=== PATIENT | male | born 1940 | race Caucasian/White ===

== ENCOUNTER 2021-08-28 11:04 | Outpatient (REF) | payer MEDICARE, OTHER, SELFPAY ==
--- NOTE | ~2021-08-28 | XR_ITS ---
EXAMINATION: XR CLAVICLE, RIGHT CLINICAL INFORMATION: Fracture distal clavicle. COMPARISON: None TECHNIQUE: Two views of the right clavicle. FINDINGS: There is posttraumatic deformity distal right clavicle. The proximal fragment is elevated by approximately one bone diameter. The right lung apex is clear. XR/XR clavicle RT IMPRESSION: Displaced fracture distal right clavicle, possibly subacute or older.
== END 2021-08-28 11:05 | disposition home or self-care (01) ==
LOC: HO.HOSX 11:04
PROVIDERS: Visit Provider Physician Assistant
DX: S42.001A Fracture of unspecified part of right clavicle, initial encounter for closed fracture (principal); X58.XXXA Exposure to other specified factors, initial encounter; Y93.9 Activity, unspecified; Y92.9 Unspecified place or not applicable; Y99.9 Unspecified external cause status
CPT/HCPCS: 73000; 99202

== ENCOUNTER 2021-09-25 09:46 | Outpatient (REF) | payer MEDICARE, SELFPAY ==
--- NOTE | ~2021-09-25 | XR_ITS ---
EXAMINATION: XR CLAVICLE, RIGHT CLINICAL INFORMATION: Fracture COMPARISON: Previous x-ray August 2021 TECHNIQUE: 2 of the right clavicle. FINDINGS: There is posttraumatic deformity of the right distal clavicle. Alignment appears unchanged.. There is surrounding bony callus formation. There is increasing adjacent soft tissue calcification. There may be a right posterior third rib fracture. XR/XR clavicle RT IMPRESSION: Healing right distal clavicle fracture. Increasing adjacent soft tissue calcification.
== END 2021-09-25 09:47 | disposition home or self-care (01) ==
LOC: HO.HOSX 09:46
PROVIDERS: Visit Provider Physician Assistant
DX: S42.001D Fracture of unspecified part of right clavicle, subsequent encounter for fracture with routine healing (principal)
CPT/HCPCS: 73000; 99212

== ENCOUNTER 2021-11-06 07:50 | Outpatient (REF) | payer MEDICARE, SELFPAY ==
--- NOTE | ~2021-11-06 | XR_ITS ---
EXAMINATION: XR CLAVICLE, RIGHT CLINICAL INFORMATION: Right distal clavicular fracture, follow-up. COMPARISON: Right clavicle 09/25/2021. TECHNIQUE: 2 views of the right clavicle. FINDINGS: There is post-traumatic deformity following fracture of the distal clavicle. Surrounding bony callus and hypertrophic changes are noted. Prominent soft tissue swelling is seen along the distal clavicle where it projects out superiorly. The glenohumeral joint space is normal. XR/XR clavicle RT IMPRESSION: No change in the post-traumatic deformity right distal clavicle following a fracture. Prominent soft tissue superiorly is likely from a displaced clavicular fracture projecting superiorly.
== END 2021-11-06 07:51 | disposition home or self-care (01) ==
LOC: HO.HOSX 07:50
PROVIDERS: Visit Provider Physician Assistant
DX: S42.001D Fracture of unspecified part of right clavicle, subsequent encounter for fracture with routine healing (principal); X58.XXXD Exposure to other specified factors, subsequent encounter
CPT/HCPCS: 73000; 99212

== ENCOUNTER 2023-08-11 10:23 | Emergency (ER) | payer MEDICARE, OTHER, SELFPAY ==
[2023-08-11] VITALS (7 sets, daily range): BP systolic 115–141; BP diastolic 57–76; PULSE 65–96; RESP 14–18; TEMP 36.7; O2SAT 92–97; BMI 19.6
--- NOTE | ~2023-08-11 | CT_ITS ---
EXAMINATION: CT CHEST WITH CONTRAST CLINICAL INFORMATION: Left upper lobe lesion COMPARISON: None available. TECHNIQUE: Multidetector volumetric CT imaging of the chest was obtained after the administration of 65 mL of Omnipaque 350 intravenous contrast without immediate adverse reactions. Axial MIP volume rendering provided. Sagittal and coronal reformatted images were obtained. This CT examination was performed using dose optimization techniques as appropriate, variously including the following: *Automated exposure control *Adjustment of mA and/or kV according to patient size (this includes techniques or standardized protocols for targeted exams where dose is matched to indication/reason for exam; i.e. extremities or head) *Use of iterative reconstruction technique DLP: 199 mGy-cm FINDINGS: MEASURER MACHINE: Hyperinflated lungs. LUNGS: There is diffuse centrilobular emphysematous changes of both lungs with ill-defined bilateral upper lobe patchy opacities likely scarring. There is a dense left upper lobe opacity measuring 2.2 cm likely abnormality seen on earlier chest x-ray. There is mild atelectatic changes or scarring in the lingula and left lower lobe. There is no groundglass density mass seen. There is spiculated 6 mm nodule right lower lobe axial image 32/4. 2 mm subpleural nodule is seen right lower lobe axial image 43/4 no additional nodules seen. There is mild thickening of bilateral superior major fissure. There is mild peribronchial thickening in both lower lobes without bronchiectasis. Mediastinum: The heart size is normal. There is significant coronary artery calcification. No pericardial effusion seen. There are small shotty mediastinal lymph nodes. Central trachea and the bronchi widely patent. PLEURA: There is bilateral apical pleural thickening AXILLA: No lymphadenopathy. UPPER ABDOMEN: Visualized liver, spleen, pancreas and bilateral adrenal glands are unremarkable. There is small calcification in the right hepatic lobe. An exophytic cyst is seen in the upper pole left kidney. OSSEOUS STRUCTURES: Mild compression deformity T4 and T3 vertebra is noted. No aggressive lytic or sclerotic process seen. CT/CT chest w IV con IMPRESSION: 1. Diffuse centrilobular emphysema with ill-defined bilateral upper lobe patchy opacities likely chronic scarring. 2. Left upper lobe opacity seen on chest x-ray corresponds to a 2.[address] 3. Suspicious 6 mm nodule right lower lobe. Recommend CT PET exam 4. No abnormal mediastinal or axillary lymphadenopathy seen. 5. Mild compression deformity T4 and T3 vertebra, likely is old. Correlate with clinical exam 6. Small exophytic cyst upper pole left kidney. 7. Significant coronary artery calcifications. Fleischner guidelines were followed.
--- NOTE | ~2023-08-11 | XR_ITS ---
EXAMINATION: XR CHEST CLINICAL INFORMATION: Cough COMPARISON: None available. TECHNIQUE: 2 views of the chest were obtained. FINDINGS: The lungs are hyperinflated but clear of acute pneumonic process. There is patchy opacity left upper lobe question scarring versus underlying lesion. There is minimal right apical pleural thickening. Heart size and pulmonary vascularity is normal. . No gross bony abnormality seen. XR/XR chest 2V IMPRESSION: 1. Hyperinflated lungs without acute process. 2. Patchy opacity left upper lobe question scarring versus underlying lesion. Recommend CT chest. 3. Minimal right apical pleural thickening.
--- NOTE | 2023-08-11 10:38 | ECG_ITS ---
Test Reason : sob Blood Pressure : / mmHG Vent. Rate : 085 BPM Atrial Rate : 085 BPM P-R Int : 164 ms QRS Dur : 090 ms QT Int : 382 ms P-R-T Axes : 093 -59 056 degrees QTc Int : 454 ms Artifact in tracing Normal sinus rhythm Left axis deviation Low voltage QRS Cannot rule out Anterior infarct , age undetermined Abnormal ECG No previous ECGs available Referred By: Generic ED Physician Electronically Signed By:FLYNN FAM
[2023-08-11 10:53] LABS: MANUAL DIFF FLAG NO
[2023-08-11 10:55] LABS: Basophils Percent Auto 0.2 % (0-2); Eosinophils Absolute Auto 0.1 X10*3/uL (0.0-0.4); Eosinophils Percent Auto 1.8 % (0-4); Hematocrit 40.1 % (42.0-52.0); Imm Gran Abs Auto 0.02 X10*3/uL (0.00-0.03); Imm Gran Pct Auto 0.4 % (0.0-0.4); Lymphocytes Absolute Auto 0.4 X10*3/uL (1.2-4.9); Lymphocytes Percent Auto 8.2 % (20-40); Mean Corpuscular HGB Conc 32.4 g/dl (31.0-36.0); Mean Corpuscular Hemoglobin 30.8 pg (27.0-33.0); Mean Platelet Volume 9.4 fL (9.4-12.4); Monocytes Absolute Auto 0.4 X10*3/uL (0.1-1.2); Monocytes Percent Auto 7.8 % (2-11); Neutrophils Absolute Auto 4.2 x10*3/uL (2.0-8.3); Neutrophils Percent Auto 81.6 % (45-73); Platelet Count 143 X10*3/uL (160-400); Red Blood Count 4.22 X10*6/uL (4.60-5.80); Red Cell Distribution Width 15.5 % (11.0-16.0); White Blood Count 5.1 X10*3/uL (4.8-10.8)
[2023-08-11 11:11] LABS: Alanine Aminotransferase 18 U/L (0-40); Alkaline Phosphatase 68 U/L (39-117); Anion Gap 15 (12-20); Aspartate Amino Transferase 23 U/L (5-37); Bilirubin Direct 0.2 mg/dL (0.0-0.5); Bilirubin Total 0.5 mg/dL (0.0-1.0); Blood Urea Nitrogen 23 mg/dL (9-16); Calcium 9.8 mg/dL (8.4-10.2); Carbon Dioxide 29 mmol/L (22-29); Chloride 103 mmol/L (96-108); Creatinine Clr Calc Pharmacy 54.1; Estimated Glomerular Filt Rate > 60; Glucose Random 146 mg/dL (60-115); Lipase 25 U/L (8-78); Potassium 4.2 mmol/L (3.3-5.1); Sodium 143 mmol/L (135-145); Total Protein 7.2 g/dL (6.5-8.0)
[2023-08-11 11:15] LABS: IDNOW Serial# BCCEAD1C; Influenza A Negative (Negative); Influenza B2 Negative (Negative)
[2023-08-11 11:16] LABS: COVID-19 Test Negative (Negative); IDNOW Serial# 08D9AD1C
[2023-08-11 11:17] LABS: Troponin-I High Sensitivity 15.7 ng/L (<3.5-35.0)
--- NOTE | 2023-08-11 14:35 | ED.ARRPALP ---
HPI - Arrhythmia/Palpitations General Chief Complaint: Arrhythmia/Palpitations Stated Complaint: SOB Multiple Issues Time Seen by Provider: 08/11/23 14:13 Source: patient Mode of arrival: ambulatory Limitations: no limitations History of Present Illness HPI narrative: Patient comes to the emergency room complaining of palpitations at night. Patient states it has been going on for about 3 months, when patient stands up to the bathroom at night, when he returns, patient has palpitations which self resolved. Patient came today because he has noticed that the palpitations are lasting longer. Patient has history of atrial fibrillation, takes Plavix and aspirin. Patient denies any chest pain. Patient has also noticed that for the last few weeks, patient has more cough and increase sputum production cough. Patient denies fever or chills Related Data Home Medications Medication Instructions Recorded Confirmed acetaminophen 650 mg 650 mg PO Q8H 08/28/21 tablet,extended release (Tylenol Arthritis Pain) atorvastatin 80 mg tablet (Lipitor) 80 mg PO DAILY 08/28/21 clopidogrel 75 mg tablet (Plavix) 75 mg PO DAILY 08/28/21 enasidenib 50 mg tablet 50 mg PO DAILY 08/28/21 famotidine 20 mg tablet 20 mg PO DAILY 08/28/21 fluticasone furoate 100 1 inh inhalation DAILY 08/28/21 mcg-vilanterol 25 mcg/dose inhalation powder (Breo Ellipta) melatonin 3 mg capsule 3 mg PO BEDTIME PRN 08/28/21 sertraline 100 mg tablet 100 mg PO DAILY 08/28/21 Previous Rx's Medication Instructions Recorded azithromycin 250 mg tablet 250 mg PO DAILY 4 days #4 tabs 08/11/23 cefuroxime axetil 500 mg tablet 500 mg PO BID #13 tabs 08/11/23 prednisone 50 mg tablet 50 mg PO DAILY #4 tabs 08/11/23 Allergies Allergy/AdvReac Type Severity Reaction Status Date / Time levofloxacin [From LEVAQUIN] Allergy Unknown HIVES Verified 08/11/23 10:31 lidocaine [LIDOCAINE] AdvReac Unknown IV Verified 08/11/23 10:31 SENSITIVE nitroglycerin AdvReac BP Drop Verified 08/11/23 10:31 tamsulosin AdvReac BP Drop Verified 08/11/23 10:31 Review of Systems Review of Systems: Constitutional : No Weight loss, No Fever, No Chills, No Night Sweats, No Fatigue, No Malaise ENT/Mouth : No Hearing loss, No Ear Pain, No Nasal Congestion, No Sinus Pain, No Hoarseness, No sore throat, No Rhinorrhea, No Swallowing Difficulty Eyes: No Eye Pain, No Swelling, No Redness, No Foreign Body, No Discharge, No Vision Changes Cardiovascular : No Chest Pain, complaining of palpitations at night accompanied by shortness of breath which self resolve. Respiratory : Several weeks of productive cough, chronic wheezing No Smoke Exposure, shortness of breath accompanied by palpitations Gastrointestinal : No Nausea, No Vomiting, No Diarrhea, No Constipation, No abdominal Pain, No Hematochezia, No Melena Genitourinary : no irregular bleeding, No Dysuria, No Urinary Frequency, No Hematuria, No Urinary Incontinence, No Urgency, No Flank Pain, No Urinary Flow Changes, No Hesitancy Musculoskeletal : No joint pain, No Myalgias, No Joint Swelling Skin : No Skin Lesions, No rash Neuro : No Weakness, No Numbness, No Paresthesias, No Loss of Consciousness, No Dizziness, No Headache Psych : No Anxiety/Panic, No Depression, No SI/HI/AH/VH, No Social Issues, Heme/Lymph: No Bruising, No Bleeding,No Lymphadenopathy Endocrine : No Polyuria, No Polydipsia, No Temperature Intolerance [facility] Past Medical History Medical History (Updated 08/11/23 @ 17:55 by Aurora Bhakta MD) Atrial fibrillation COPD (chronic obstructive pulmonary disease) FHx: cholecystectomy Surgical History History of appendectomy S/P trigger finger release H/O angioplasty Social History Social History Alcohol intake: never Smoked in Last 30 Days: No Use of substances other than those prescribed or required for medical reasons: No Substance Use Type: Prescription Drugs Advance Directives: Yes Advance Directives Information Provided: Yes Advance Directives on File: No Current occupational status: disabled Current occupation: Rt handed Physical Exam Vital Signs: Vital Signs: Last Vital Signs Temp 98.0 F 08/11/23 10:31 Pulse 75 08/11/23 15:09 Resp 18 08/11/23 15:09 BP 131/66 08/11/23 14:30 Pulse Ox 97 08/11/23 14:30 O2 Del Method Room Air 08/11/23 14:30 BMI result Body Mass Index 19.6 Const: Other: Appearance: Alert. Oriented X3. No acute distress. Eyes: Pupils equal, round and reactive to light. ENT: Pharynx normal. Neck: Normal inspection. Neck supple. No lymph nodes noted. No crepitus CVS: Regular heart rate, regular rhythm, heart rate between 70-80 , Pulses normal. Normal S1 and S2 Respiratory: No respiratory distress. Mild bilateral wheezing, fairly good air movement No rales Abdomen: Soft and nontender. No rigidity. No distention. Skin: Skin warm and dry. Normal skin color. Normal skin turgor. Extremities: No lower extremity edema. No Lacerations. No Rash Neuro: Oriented X 3. No motor deficit. No sensory deficit. Moving all extremities. No slurred speech. CN 2 through 12 grossly intact Psych: calm, cooperative, normal affect Medications Administered Discontinued Medications Generic Name Dose Route Start Last Admin Trade Name Freq PRN Reason Stop Dose Admin Albuterol Sulfate 2.5 mg 08/11/23 15:06 08/11/23 15:09 Albuterol Sulfate (0.083%) 2.5 Mg/3 Ml Vial.Neb INHALE 08/11/23 15:07 2.5 mg ONCE ONE Administration Albuterol/Ipratropium 3 ml 08/11/23 14:44 08/11/23 14:55 Albuterol/Iprat 2.5/0.5mg 3 Ml Ampul.Neb INHALE 08/11/23 14:45 3 ml ONCE ONE Administration Iohexol 65 ml 08/11/23 14:54 08/11/23 14:54 Iohexol 350 Mg/Ml 75 Ml Infus..Btl IV 08/11/23 14:55 65 ml ONCE ONE Administration Medical Decision Making Medical Decision Making MDM Narrative: -my interpretation of chest x-ray: Opacity in the left upper lobe. Possible pneumonia. -radiology report, opacity versus scarring versus lesion. CT scan recommended -I discussed the CT scan with the patient, patient states that he recently he was told something about pulmonary nodules but was not sure what he was told. We will go ahead and order a CT scan with contrast of the chest -my interpretation of the labs: White blood cell count within normal limits, hemoglobin 13, hematocrit 40, no previous labs for comparison, treated slightly decreased as well. No significant electrolyte disturbance, normal LFTs, normal troponin, BNP normal -at this time, patient is asymptomatic, laying in bed comfortably, no respiratory distress. On physical exam there was a bit of wheezing, patient requesting an updraft -CT scan of the chest my interpretation: Multiple nodules bilaterally, emphysema scarring -I discussed the CT scan findings with the patient and his son. Patient's son states that primary care physician is already following up on the pulmonary nodules, CT scan was done approximately 1 week ago, they have a follow-up appointment coming up for the results. Discussed with the patient that eventually a PET scan would be recommended. Fortunately, patient's PCP is already on top of things. Per patient's son, just in case he would like to have the phone number for pulmonology. -I discussed with the patient his and given his symptoms and medical history, we should go ahead and treat him with antibiotics. Both agree -patient walked around the emergency room, patient states he feels well, no oxygen saturation, no arrhythmias Differential Diagnosis Differential Diagnoses: The differential diagnosis associated with the presentation includes (Chronic lung disease, asthma, pulmonary nodules/malignancy, CHF) Admission/Observation Consideration of admission/observation: Escalation of care including admission/observation considered (Given patient's past medical history and presentation, admission was considered on arrival) Lab Data MDM Lab Attestation statement: I reviewed the patient's lab results. 08/11/23 10:46 08/11/23 10:46 Labs: Lab Results 08/11/23 08/11/23 Range/Units 10:46 10:47 WBC 5.1 (4.8-10.8) X10*3/uL RBC 4.22 L (4.60-5.80) X10*6/uL Hgb 13.0 L (14.0-18.0) g/dl Hct 40.1 L (42.0-52.0) % MCV 95.0 (80.0-98.0) fL MCH 30.8 (27.0-33.0) pg MCHC 32.4 (31.0-36.0) g/dl RDW 15.5 (11.0-16.0) % Plt Count 143 L (160-400) X10*3/uL MPV 9.4 (9.4-12.4) fL Immature Gran % (Auto) 0.4 (0.0-0.4) % Neut % (Auto) 81.6 H (45-73) % Lymph % (Auto) 8.2 L (20-40) % [place] % (Auto) 7.8 (2-11) % Eos % (Auto) 1.8 (0-4) % Baso % (Auto) 0.2 (0-2) % Lymph # (Auto) 0.4 L (1.2-4.9) X10*3/uL [place] # (Auto) 0.4 (0.1-1.2) X10*3/uL Eos # (Auto) 0.1 (0.0-0.4) X10*3/uL Baso # (Auto) 0.0 (0.0-0.2) X10*3/uL Abs Immat Gran (auto) 0.02 (0.00-0.03) X10*3/uL Absolute Neuts (auto) 4.2 (2.0-8.3) x10*3/uL Absolute Nucleated RBC 0.000 (0.0-0.012) X10*3/uL Nucleated RBC % (auto) 0.0 (0.0-0.2) /100WBC Sodium 143 (135-145) mmol/L Potassium 4.2 (3.3-5.1) mmol/L Chloride 103 (96-108) mmol/L Carbon Dioxide 29 (22-29) mmol/L Anion Gap 15 (12-20) BUN 23 H (9-16) mg/dL Creatinine 0.87 (0.5-1.4) mg/dL Estim Creat Clear Calc 54.1 Estimated GFR > 60 Random Glucose 146 H (60-115) mg/dL Calcium 9.8 (8.4-10.2) mg/dL Total Bilirubin 0.5 (0.0-1.0) mg/dL Direct Bilirubin 0.2 (0.0-0.5) mg/dL AST 23 (5-37) U/L ALT 18 (0-40) U/L Alkaline Phosphatase 68 (39-117) U/L Troponin I High Sens 15.7 (<3.5-35.0) ng/L B-Natriuretic Peptide 67 (<100) pg/mL Total Protein 7.2 (6.5-8.0) g/dL Albumin 4.0 (3.5-5.0) g/dL Lipase 25 (8-78) U/L COVID-19 (RASHI) Negative (Negative) COVID-19 Clin Com See Note Influenza Type A (JUANA) Negative (Negative) Influenza Type B (JUANA) Negative (Negative) Influenza A & B Note See Note Independent Interpretation I performed an independent interpretation of an: CT Scan Radiology Impression Discussion of test interpretation with radiology: I have reviewed the radiologist's reading. Radiologist Impression: FINDINGS: ETHANOL OPERATIONS MANAGER: Hyperinflated lungs. LUNGS: There is diffuse centrilobular emphysematous changes of both lungs with ill-defined bilateral upper lobe patchy opacities likely scarring. There is a dense left upper lobe opacity measuring 2.2 cm likely abnormality seen on earlier chest x-ray. There is mild atelectatic changes or scarring in the lingula and left lower lobe. There is no groundglass density mass seen. There is spiculated 6 mm nodule right lower lobe axial image 32/4. 2 mm subpleural nodule is seen right lower lobe axial image 43/4 no additional nodules seen. There is mild thickening of bilateral superior major fissure. There is mild peribronchial thickening in both lower lobes without bronchiectasis. Mediastinum: The heart size is normal. There is significant coronary artery calcification. No pericardial effusion seen. There are small shotty mediastinal lymph nodes. Central trachea and the bronchi widely patent. PLEURA: There is bilateral apical pleural thickening AXILLA: No lymphadenopathy. UPPER ABDOMEN: Visualized liver, spleen, pancreas and bilateral adrenal glands are unremarkable. There is small calcification in the right hepatic lobe. An exophytic cyst is seen in the upper pole left kidney. OSSEOUS STRUCTURES: Mild compression deformity T4 and T3 vertebra is noted. No aggressive lytic or sclerotic process seen. CT/CT chest w IV con IMPRESSION: 1. Diffuse centrilobular emphysema with ill-defined bilateral upper lobe patchy opacities likely chronic scarring. 2. Left upper lobe opacity seen on chest x-ray corresponds to a 2.[address] 3. Suspicious 6 mm nodule right lower lobe. Recommend CT PET exam 4. No abnormal mediastinal or axillary lymphadenopathy seen. 5. Mild compression deformity T4 and T3 vertebra, likely is old. Correlate with clinical exam 6. Small exophytic cyst upper pole left kidney. 7. Significant coronary artery calcifications. Fleischner guidelines were followed. Independent Historian Clinical information obtained from an independent historian. History obtained from or confirmed by: Other (Patient's son) Critical Care Time Critical Care Time Critical Care Time: Yes Total Critical Care Time: 60 Attestation: I have personally provided critical care time. Time includes review of lab data, radiology results, discussion with consultants, and monitoring for potential decompensation. Intervention performed as documented. Discharge Plan Discharge Clinical Impression: Chronic lung disease Patient Disposition: Home, Self-Care Instructions: Chronic Bronchitis (DC) Additional Instructions: Please follow-up with your primary care physician tomorrow. If you have any worsening or new symptoms, please return to the emergency room or call 911 Prescriptions: New cefuroxime axetil 500 mg tablet 500 mg PO BID Qty: 13 0RF azithromycin 250 mg tablet 250 mg PO DAILY 4 Days Qty: 4 0RF Rx Instructions: start on day 2 of therapy prednisone 50 mg tablet 50 mg PO DAILY Qty: 4 0RF No Action clopidogrel [Plavix] 75 mg tablet 75 mg PO DAILY enasidenib 50 mg tablet 50 mg PO DAILY Breo Ellipta 100-25 mcg/dose blister with device 1 inh inhalation DAILY atorvastatin [Lipitor] 80 mg tablet 80 mg PO DAILY sertraline 100 mg tablet 100 mg PO DAILY famotidine 20 mg tablet 20 mg PO DAILY melatonin 3 mg capsule 3 mg PO BEDTIME PRN acetaminophen [Tylenol Arthritis Pain] 650 mg tablet extended release 650 mg PO Q8H
[2023-08-11 14:52] LABS: B Type Natriuretic Peptide 67 pg/mL (<100)
[2023-08-11] MEDS: iohexoL 350 MG/ML 75 ML INFUS..BTL 65 ML IV (14:54)
[2023-08-11] MEDS: Albuterol/Iprat 2.5/0.5MG 3 ML AMPUL.NEB INHALE (14:55)
[2023-08-11] MEDS: Albuterol Sulfate (0.083%) 2.5 MG/3 ML VIAL.NEB INHALE (15:09)
--- NOTE | 2023-08-11 16:09 | PC.NURSE ---
Assumed care of pt from previous RN, pt resting comfortably on stretcher. Denies any complaints. Awaiting CT Chest results at this time, call hernandez within reach.
[2023-08-11] MEDS: cefuroxime axetiL 500 MG TABLET PO (18:23)
[2023-08-11] MEDS: Azithromycin 500 MG TABLET PO (18:23)
[2023-08-11] MEDS: predniSONE 20 MG TABLET 60 MG PO (18:23)
== END 2023-08-11 18:41 | disposition home or self-care (01) ==
PROVIDERS: Emergency Provider Emergency Medicine; PCP Internal Medicine
DX: J98.9 Respiratory disorder, unspecified (principal); I49.9 Cardiac arrhythmia, unspecified; R06.02 Shortness of breath; R05.9 Cough, unspecified; Z11.52 Encounter for screening for COVID-19; Z20.822 Contact with and (suspected) exposure to COVID-19; Z79.899 Other long term (current) drug therapy
CPT/HCPCS: 71046; 71260; 80048; 80076; 83690; 83880; 84484; 85025; 87502; 87635; 93005; 94640; 99285; Q9967

== ENCOUNTER → 2023-08-11 10:38 | Outpatient (BNV) | payer MEDICARE, OTHER, SELFPAY | PROVIDERS: Emergency Provider Emergency Medicine; PCP Internal Medicine; Visit Provider Internal Medicine | DX: I44.4 Left anterior fascicular block (principal); R06.02 Shortness of breath | CPT/HCPCS: 93010 ==

== ENCOUNTER 2023-11-25 08:10 | Emergency (ER) | payer MEDICARE, OTHER, SELFPAY ==
[2023-11-25] VITALS (10 sets, daily range): BP systolic 116–183; BP diastolic 50–86; PULSE 75–125; RESP 15–18; TEMP 37.1–39.3; O2SAT 92–97; BMI 19.1
--- NOTE | ~2023-11-25 | CT_ITS ---
EXAMINATION: CT CERVICAL SPINE WITHOUT CONTRAST CLINICAL INFORMATION: Neck pain COMPARISON: None available. TECHNIQUE: Thin section axial images with sagittal coronal reformats. This CT examination was performed using dose optimization techniques as appropriate, variously including the following: *Automated exposure control *Adjustment of mA and/or kV according to patient size (this includes techniques or standardized protocols for targeted exams where dose is matched to indication/reason for exam; i.e. extremities or head) *Use of iterative reconstruction technique DLP: 504 mGy-cm FINDINGS: There is advanced degenerative change observed C5-C6 and C6-C7 but no mass effect on the spinal canal. No fracture or destructive process. Prevertebral soft tissues normal. Minimal scarring is seen in the lung apices. CT/CT cervical spine wo IV con IMPRESSION: Degenerative change noted. No fracture. Degenerative changes observed but no acute findings. No evidence for fracture or alignment abnormality in the C-spine. Fleischner guidelines were followed.
--- NOTE | ~2023-11-25 | XR_ITS ---
EXAMINATION: XR CHEST CLINICAL INFORMATION: Difficulty breathing COMPARISON: CT chest 08/11/2023 TECHNIQUE: Frontal view of the chest was obtained. FINDINGS: Diffuse fibrotic change but no focal consolidation. Heart and pulmonary vessels normal. No congestive change. Previously described opacity left upper lobe less conspicuous. XR/XR chest 1V IMPRESSION: No active disease.
--- NOTE | ~2023-11-25 | CT_ITS ---
EXAMINATION: CT HEAD WITHOUT CONTRAST CLINICAL INFORMATION: Headaches COMPARISON: None available. TECHNIQUE: Contiguous axial imaging was performed from the skull base to vertex without intravenous administration of contrast. This CT examination was performed using dose optimization techniques as appropriate, variously including the following: *Automated exposure control *Adjustment of mA and/or kV according to patient size (this includes techniques or standardized protocols for targeted exams where dose is matched to indication/reason for exam; i.e. extremities or head) *Use of iterative reconstruction technique DLP: 880 mGy-cm FINDINGS: There is prominence to the sulci and ventricles with at least moderate deep white matter gliosis compatible with involutional change. No evidence of intra or extra axial fluid collection, hemorrhage, mass, or mass effect. Calvarium is intact. CT/CT head/brain wo IV con IMPRESSION: No acute intracranial pathology.
--- NOTE | 2023-11-25 11:45 | PC.NURSE ---
PT STATES THAT THE PASS FEW DAYS HE WAS DIZZINESS/LIGHTNESS/WEAKNESS/SHAKING(NETO HANDS INTERMITTENTLY) WITH DIFF AMBULATING. MD AWARE.
--- NOTE | 2023-11-25 11:48 | ECG_ITS ---
Test Reason : DIZZINESS Blood Pressure : / mmHG Vent. Rate : 069 BPM Atrial Rate : 069 BPM P-R Int : 186 ms QRS Dur : 098 ms QT Int : 434 ms P-R-T Axes : 075 -60 047 degrees QTc Int : 465 ms Sinus rhythm with Premature atrial complexes Left axis deviation Incomplete right bundle branch block Cannot rule out Anterior infarct (cited on or before 11-AUG-2023) Abnormal ECG When compared with ECG of 11-AUG-2023 10:41, Premature atrial complexes are now Present Referred By: Dory Arroyo Electronically Signed By:Mg Navarro
--- NOTE | 2023-11-25 11:48 | ED.GENADULT ---
HPI - General Adult General Chief complaint: Headache Stated complaint: Dizzy Headache Weak Time Seen by Provider: 11/25/23 11:48 Source: patient and RN notes reviewed Mode of arrival: ambulatory Limitations: no limitations History of Present Illness HPI narrative: This is a 83-year-old male, with a history of atrial fibrillation on clopidogrel, who presents emergency department for evaluation of ongoing weakness, shakiness, chronic headaches and neck pain x 5-6 months. Patient states that over the last several months he has had increased difficulty getting around. He also endorses weakness and headaches. He was seen here in July with similar symptoms. Patient denies any recent falls. Denies any fevers, chills, chest pain, shortness of breath, abdominal pain, nausea, vomiting or diarrhea. No urinary symptoms. No changes in bowel or bladder habits. No other complaints or concerns at this time. MD complaint: Global weakness, headaches Quality: aching Pain Consistency: constant Relieving factors: none Exacerbating factors: none Associated symptoms: denies other symptoms Treatments prior to arrival: none Related Data Home Medications ?Medication ?Instructions ?Recorded ?Confirmed acetaminophen 650 mg 650 mg PO Q8H 08/28/21 tablet,extended release (Tylenol Arthritis Pain) atorvastatin 80 mg tablet (Lipitor) 80 mg PO DAILY 08/28/21 clopidogrel 75 mg tablet (Plavix) 75 mg PO DAILY 08/28/21 famotidine 20 mg tablet 20 mg PO DAILY 08/28/21 melatonin 3 mg capsule 3 mg PO BEDTIME PRN 08/28/21 sertraline 100 mg tablet 100 mg PO DAILY 08/28/21 albuterol sulfate 90 mcg/actuation inhalation 11/26/23 aerosol inhaler (Ventolin HFA) enalapril maleate 5 mg tablet PO 11/26/23 fluticasone furoate 200 1 ea inhalation DAILY 11/26/23 11/26/23 mcg-vilanterol 25 mcg/dose inhalation powder (Breo Ellipta) Previous Rx's ?Medication ?Instructions ?Recorded acetaminophen 500 mg tablet 500 mg PO Q6H PRN fever or pain 11/26/23 (Tylenol Extra Strength) #30 tabs oseltamivir 75 mg capsule (Tamiflu) 75 mg PO BID 5 days #9 caps 11/26/23 Allergies Allergy/AdvReac Type Severity Reaction Status Date / Time levofloxacin [From LEVAQUIN] Allergy Unknown HIVES Verified 11/25/23 08:58 lidocaine [LIDOCAINE] AdvReac Unknown IV Verified 11/25/23 08:58 SENSITIVE nitroglycerin AdvReac BP Drop Verified 11/25/23 08:58 tamsulosin AdvReac BP Drop Verified 11/25/23 08:58 Review of Systems Review of Systems: Yes all other systems are reviewed and are negative Constitutional: Constitutional: Reports as per HPI [facility] Past Medical History Medical History Atrial fibrillation COPD (chronic obstructive pulmonary disease) FHx: cholecystectomy Surgical History History of appendectomy S/P trigger finger release H/O angioplasty Social History Social History Alcohol intake: never Smoked in Last 30 Days: No Use of substances other than those prescribed or required for medical reasons: No Substance Use Type: Prescription Drugs Advance Directives: No Advance Directives Information Provided: No Current occupational status: disabled Current occupation: [employer] handed Physical Exam ED Vital Signs: Vital Signs - 24 hr 11/25/23 16:57 11/25/23 18:09 11/25/23 18:12 Temperature 99.5 F Pulse Rate 92 75 82 Respiratory Rate 18 Blood Pressure 122/50 L 116/53 L 124/64 Pulse Oximetry 92 Oxygen Delivery Method Room Air 11/25/23 18:14 11/25/23 20:00 11/26/23 01:04 Temperature 98.7 F 98.6 F Pulse Rate 92 88 100 Respiratory Rate 15 17 Blood Pressure 131/67 121/56 L 167/70 H Pulse Oximetry 97 93 Oxygen Delivery Method Room Air Room Air 11/26/23 04:40 11/26/23 06:36 11/26/23 09:13 Temperature 102.2 F H 100.8 F H 99.7 F Pulse Rate 68 Respiratory Rate 18 Blood Pressure 139/67 Pulse Oximetry 94 Oxygen Delivery Method 11/26/23 09:41 Temperature Pulse Rate 68 Respiratory Rate Blood Pressure 139/67 Pulse Oximetry 94 Oxygen Delivery Method BMI result Body Mass Index 19.1 Const General: cooperative, comfortable and no acute distress Orientation/consciousness: patient oriented x3 Limitations: no limitations HENMT Head: Yes normal to inspection, Yes normocephalic and Yes atraumatic Ears: hearing grossly normal bilaterally General nose exam: Normal external nose present Face and sinus: Yes normal facial exam Mouth: Normal oral and palatal mucosa present, oropharynx normal and moist mucous membranes Throat: Yes posterior oropharynx normal Eyes General: appearance normal, both eyes and all related structures Eyelids: Yes eyelids normal Conjunctivae: conjunctivae normal Sclerae: sclerae normal Pupils: Equal, round and reactive pupils present EOM: EOMs intact bilaterally Neck Neck: Yes normal visual inspection, Yes full ROM and Yes no lymphadenopathy Lymphatic: no lymphadenopathy noted Chest Chest palpation & inspection: normal inspection of the chest Resp Effort & Inspection: normal respiratory effort and able to speak in complete sentences Auscultation: clear to auscultation bilaterally, no crackles, no rales, no rhonchi and no wheezes Cardio Rate: regular rate Rhythm: regular rhythm Heart sounds: S1 normal heart sound present and S2 normal heart sound present GI Inspection: Yes normal to inspection Skin General skin exam: no rashes or lesions noted Trauma: no lacerations or abrasions Wounds: no wounds Neuro General: patient oriented x3 and moves all extremities Cranial nerves: Yes CN's II-XII intact bilaterally and Yes Equal, round and reactive pupils present Cognition (Neuro): normal cognition Gait exam (Neuro): Normal gait present Motor exam (neuro): 5/5 motor strength present throughout and Pronator motor function not present Extrem General: Yes normal to inspection Right upper extremity: normal to inspection Left upper extremity: normal to inspection Right lower extremity: normal to inspection Left lower extremity: normal to inspection Course Reevaluation(s) Reevaluation #1: Labs return, patient has leukocytosis at 17.2 Reevaluation #2: I was just notified that patient is febrile and tachycardic. Orthostatic vitals revealing that he is orthostatic increased tachycardia standing. Patient did test positive for influenza. Chest x-ray is unremarkable. Urine does not appear to be infected. Abdomen is soft nontender therefore intra abdominal process unlikely. Patient is likely tachycardic due to fever. I do not suspect sepsis, and I believe that this is viral in process. Discussed with my attending physician, Dr. Salguero. Will obtain lactic. Cultures were already performed upon arrival. Will administer IV fluids and Tylenol, and will closely monitor. Time: 15:39 Reevaluation #3: Patient no longer febrile, lactic acid negative. Will repeat orthostatics. Time: 17:33 Additional Reevaluation(s): Patient is not orthostatic, patient feeling well, afebrile, all vital signs within normal limits. Workup today unremarkable despite positive influenza test. Leukocytosis as mentioned before is likely reactive due to fever and tachycardia. Lactic acid negative. It is unclear how long he has been sick with the flu as he does not endorse any worsening cough, congestion, body aches or fevers. Patient will be seen by PT Case Management in the morning due to weakness which has been present for the last 5-6 months. Patient is willing to stay overnight for evaluation by PT and case management. Physician observation initiated. 11/26/2023 1130 - patient was seen by case management, and due to weakness and positive influenza test, they are requesting hospital admission as he meets admission criteria given fever and positive influenza testing. He has not altered, and is stable. He has been medicated with Tylenol overnight. 11/26/2023 1300 - reviewed patient's chart in regards to hospital admission. Given that he has not hypoxic, all medicine would be able to do is give Tamiflu. Vitals minus fevers are stable. Labs are okay. Imaging is negative. Physical therapy saw him this morning and did not recommend placement to short-term rehab and is okay to return to assisted living further note. Patient does not need to be admitted. He can go home back to his assisted living with home PT. His nephew will pick him up at 4:00 p.m. this afternoon. Patient stable. Medications Administered Generic Name Dose Route Start Last Admin Trade Name Freq PRN Reason Stop Dose Admin Acetaminophen 650 mg 11/26/23 04:40 11/26/23 04:56 Acetaminophen 325 Mg Tablet PO 650 mg RQ6H PRN Administration Fever >100.4 Discontinued Medications Generic Name Dose Route Start Last Admin Trade Name Freq PRN Reason Stop Dose Admin Acetaminophen 650 mg 11/25/23 15:27 11/25/23 15:38 Acetaminophen 325 Mg Tablet PO 11/25/23 15:28 650 mg ONCE ONE Administration Sodium Chloride 1,000 mls @ 999 mls/hr 11/25/23 15:32 11/25/23 20:00 Ns IV 11/25/23 16:32 Infused .Q1H1M ONE Infusion Medical Decision Making Medical Decision Making [facility] Narrative: This is a 83-year-old male, with a history of atrial fibrillation on clopidogrel, who presents emergency department with complaints of ongoing global weakness, weakness, headaches and neck pain for the last 5 to 6 months. Patient states that he was seen here in July for similar symptoms. On arrival, patient neurologically intact, strength 5/5 in upper and lower extremities bilaterally. No focal deficits. Differential diagnoses include electrolyte derangement, orthostatic hypertension, intracranial hemorrhage, intracranial mass, pneumonia Plan: Labs, EKG, CT head and neck, orthostatic vitals Differential Diagnosis Differential Diagnoses: The differential diagnosis associated with the presentation includes See above Admission/Observation Consideration of admission/observation: Escalation of care including admission/observation considered Escalation of care including admission/observation considered however given workup today not warranted at this time. Lab Data [facility] Lab Attestation statement: I reviewed the patient's lab results. 11/25/23 12:21 11/25/23 12:21 Labs: Lab Results 11/25/23 11/25/23 11/25/23 Range/Units 12:21 14:55 16:09 WBC 17.2 H (4.8-10.8) X10*3/uL RBC 4.12 L (4.60-5.80) X10*6/uL Hgb 13.0 L (14.0-18.0) g/dl Hct 39.1 L (42.0-52.0) % MCV 94.9 (80.0-98.0) fL MCH 31.6 (27.0-33.0) pg MCHC 33.2 (31.0-36.0) g/dl RDW 13.6 (11.0-16.0) % Plt Count 254 D (160-400) X10*3/uL MPV 9.3 L (9.4-12.4) fL Immature Gran % (Auto) 1.1 H (0.0-0.4) % Neut % (Auto) 91.0 H (45-73) % Lymph % (Auto) 2.6 L (20-40) % Mercer % (Auto) 5.2 (2-11) % Eos % (Auto) 0.0 (0-4) % Baso % (Auto) 0.1 (0-2) % Lymph # (Auto) 0.4 L (1.2-4.9) X10*3/uL Mercer # (Auto) 0.9 (0.1-1.2) X10*3/uL Eos # (Auto) 0.0 (0.0-0.4) X10*3/uL Baso # (Auto) 0.0 (0.0-0.2) X10*3/uL Abs Immat Gran (auto) 0.19 H (0.00-0.03) X10*3/uL Absolute Neuts (auto) 15.7 H (2.0-8.3) x10*3/uL Absolute Nucleated RBC 0.000 (0.0-0.012) X10*3/uL Nucleated RBC % (auto) 0.0 (0.0-0.2) /100WBC Smear Tech's Comments VERIFIED PT 15.0 H (11.1-13.3) SEC INR 1.2 H (0.9-1.1) APTT 29.9 (26.0-36.8) SEC Sodium 139 (135-145) mmol/L Potassium 3.5 (3.3-5.1) mmol/L Chloride 100 (96-108) mmol/L Carbon Dioxide 29 (22-29) mmol/L Anion Gap 14 (12-20) BUN 20 H (9-16) mg/dL Creatinine 0.80 (0.5-1.4) mg/dL Estim Creat Clear Calc 59.1 Estimated GFR > 60 Random Glucose 141 H (60-115) mg/dL Lactic Acid 1.8 (0.5-2.0) mmol/L Calcium 9.4 (8.4-10.2) mg/dL Magnesium 2.0 (1.6-2.6) mg/dL Total Bilirubin 0.9 (0.0-1.0) mg/dL Direct Bilirubin 0.4 (0.0-0.5) mg/dL AST 13 (5-37) U/L ALT 13 (0-40) U/L Alkaline Phosphatase 68 (39-117) U/L Troponin I High Sens 15.4 (<3.5-35.0) ng/L Total Protein 7.2 (6.5-8.0) g/dL Albumin 3.9 (3.5-5.0) g/dL Lipase 15 (8-78) U/L Urine Color Dark Yellow Urine Appearance Clear Urine pH 5.5 (5.0-9.0) Ur Specific [place] >= 1.030 H (1.005-1.025) Urine Protein 30 (1+) H (Neg-Trace) mg/dL Urine Glucose (UA) Negative (Negative) mg/dL Urine Ketones Negative (Negative) mg/dL Urine Blood Negative (Negative) Urine Nitrite Negative (Negative) Ur Leukocyte Esterase Trace H (Negative) Urine RBC 0-2 (0-2) /HPF Urine WBC 0-5 (0-5) /HPF Ur Squamous Epith Cells 0-2 (0-2) /HPF Urine Bacteria None Seen (None Seen) Hyaline Casts 0-2 (0-2) /LPF Influenza Type A (PCR) POSITIVE A (Negative) Influenza Type B (PCR) NEGATIVE (Negative) RSV RNA Qual (PCR) NEGATIVE (Negative) SARS-CoV-2 RNA (RT-PCR) NEGATIVE (Negative) Radiology Impression Discussion of test interpretation with radiology: I have reviewed the radiologist's reading. External Record Review External record reviewed: Inpatient record, Office record, Outpatient record, Prior outpatient labs, Prior outpatient radiology, Primary care record and Outside ED record Discharge Plan Discharge Clinical Impression: Flu, Weakness Patient Disposition: Still a Patient Instructions: Influenza (ED) Additional Instructions: Your seen in the emergency department due to weakness. Your workup was reassuring. You did test positive for flu. Please drink plenty of fluids get plenty of rest. Take Tamiflu, antiviral to lessen the duration and severity of influenza > we gave you your 1st dose today, please continue taking at home as prescribed. Take Tylenol as needed for fevers. If any new or worsening symptoms occur including but not limited to chest pain, shortness for breath, abdominal pain, nausea, vomiting or diarrhea, please return for re-evaluation. Prescriptions: New oseltamivir [Tamiflu] 75 mg capsule 75 mg PO BID 5 Days Qty: 9 0RF Rx Instructions: 1st dose received 11/26/2023 at 1500 acetaminophen [Tylenol Extra Strength] 500 mg tablet 500 mg PO Q6H PRN (Reason: fever or pain) Qty: 30 0RF No Action enalapril maleate 5 mg tablet PO albuterol sulfate [Ventolin HFA] 90 mcg/actuation HFA aerosol inhaler inhalation fluticasone furoate-vilanterol [Breo Ellipta] 200-25 mcg/dose blister with device 1 ea inhalation DAILY clopidogrel [Plavix] 75 mg tablet 75 mg PO DAILY atorvastatin [Lipitor] 80 mg tablet 80 mg PO DAILY sertraline 100 mg tablet 100 mg PO DAILY famotidine 20 mg tablet 20 mg PO DAILY melatonin 3 mg capsule 3 mg PO BEDTIME PRN acetaminophen [Tylenol Arthritis Pain] 650 mg tablet extended release 650 mg PO Q8H Referrals: [facility] [Outside] - 1 day (HOME PHYSICAL THERAPY) Print Language: [place]
[2023-11-25 12:33] LABS: Basophils Percent Auto 0.1 % (0-2); Hematocrit 39.1 % (42.0-52.0); Imm Gran Abs Auto 0.19 X10*3/uL (0.00-0.03); Imm Gran Pct Auto 1.1 % (0.0-0.4); Lymphocytes Absolute Auto 0.4 X10*3/uL (1.2-4.9); Lymphocytes Percent Auto 2.6 % (20-40); MANUAL DIFF FLAG SCAN; Mean Corpuscular HGB Conc 33.2 g/dl (31.0-36.0); Mean Corpuscular Hemoglobin 31.6 pg (27.0-33.0); Mean Corpuscular Volume 94.9 fL (80.0-98.0); Mean Platelet Volume 9.3 fL (9.4-12.4); Monocytes Absolute Auto 0.9 X10*3/uL (0.1-1.2); Monocytes Percent Auto 5.2 % (2-11); Neutrophils Absolute Auto 15.7 x10*3/uL (2.0-8.3); Platelet Count 254 X10*3/uL (160-400); Red Blood Count 4.12 X10*6/uL (4.60-5.80); Red Cell Distribution Width 13.6 % (11.0-16.0); SCAN SMEAR FLAG 1; White Blood Count 17.2 X10*3/uL (4.8-10.8)
[2023-11-25 12:40] LABS: INTERNATIONAL NORM RATIO 1.2 (0.9-1.1)
[2023-11-25 12:43] LABS: Partial Thromboplastin Time 29.9 SEC (26.0-36.8)
[2023-11-25 12:47] LABS: Alanine Aminotransferase 13 U/L (0-40); Albumin Level 3.9 g/dL (3.5-5.0); Alkaline Phosphatase 68 U/L (39-117); Anion Gap 14 (12-20); Aspartate Amino Transferase 13 U/L (5-37); Bilirubin Direct 0.4 mg/dL (0.0-0.5); Bilirubin Total 0.9 mg/dL (0.0-1.0); Blood Urea Nitrogen 20 mg/dL (9-16); Calcium 9.4 mg/dL (8.4-10.2); Carbon Dioxide 29 mmol/L (22-29); Chloride 100 mmol/L (96-108); Creatinine Clr Calc Pharmacy 59.1; Estimated Glomerular Filt Rate > 60; Glucose Random 141 mg/dL (60-115); Lipase 15 U/L (8-78); Potassium 3.5 mmol/L (3.3-5.1); Sodium 139 mmol/L (135-145); Total Protein 7.2 g/dL (6.5-8.0)
[2023-11-25 12:56] LABS: Troponin-I High Sensitivity 15.4 ng/L (<3.5-35.0)
[2023-11-25 13:04] LABS: Influenza A PCR POSITIVE (Negative); Influenza B PCR NEGATIVE (Negative); Resp Syncy Virus RNA Qual PCR NEGATIVE (Negative); SARS COV2 PCR INHOUSE NEGATIVE (Negative)
[2023-11-25 13:09] LABS: SLIDE REVIEW VERIFIED
[2023-11-25 15:04] LABS: Appearance Urine Clear; Color Urine Dark Yellow; Glucose Urine UA Negative (Negative); Leukocyte Esterase Urine Trace (Negative); Nitrite Urine Negative (Negative); PH 5.5 (5.0-9.0); Specific Gravity - Urine >= 1.030 (1.005-1.025); UMIC TRIGGER UACC YES; Urine Blood Negative (Negative); Urine Ketones Negative (Negative); Urine Protein 30 (1+) mg/dL (Neg-Trace)
[2023-11-25 15:15] LABS: Bacteria Urine None Seen (None Seen); Hyaline Casts Urine 0-2 /LPF (0-2); RBC Urine 0-2 /HPF (0-2); Squamous Epithelial Cell Urine 0-2 /HPF (0-2); WBC Urine 0-5 /HPF (0-5)
[2023-11-25] MEDS: 0.9 % Sodium Chloride 1,000 ML 999 ML IV (15:33)
[2023-11-25] MEDS: Acetaminophen 325 MG TABLET 650 MG PO (15:38)
--- NOTE | 2023-11-25 16:15 | PC.NURSE ---
this rn assumed care of pt @ 6140. this rn made anila brown aware of temp. iv placed ivf infusing pt medicated with po tylenol
[2023-11-25 16:49] LABS: Lactic Acid 1.8 mmol/L (0.5-2.0)
--- NOTE | 2023-11-25 18:27 | PC.NURSE ---
this rn replaced iv as ivf not infusing well. iv placed 20 g in R Ac ivf infusing well
[2023-11-26 01:04] VITALS: BP 167/70; PULSE 100; RESP 17; TEMP 37; O2SAT 93
--- NOTE | 2023-11-26 02:59 | PC.NURSE ---
pt repositioned in bed. pt requested OJ. resting comfortably call hernandez within reach.
[2023-11-26 04:40] VITALS: TEMP 39
[2023-11-26] MEDS: Acetaminophen 325 MG TABLET 650 MG PO (04:56)
--- NOTE | 2023-11-26 06:13 | PC.NURSE ---
pt transported from main ed to overflow unit bed 6 at 0530, pt placed in private room, precautions in place. pt denies pain, no acute distress noted.
--- NOTE | 2023-11-26 06:20 | PC.NURSE ---
provider aware of pt temperature at this time, no new orders at this time.
[2023-11-26 06:36] VITALS: BP 139/67; PULSE 68; RESP 18; TEMP 38.2; O2SAT 94
--- NOTE | 2023-11-26 07:09 | PC.NURSE ---
Assumed care of patient at this time, patient sleeping, respirations even and unlabored.
--- NOTE | 2023-11-26 08:49 | PC.NURSE ---
Pt sleeping but arousable. C/o headache- ice pack given for comfort. Pt offered OJ and water, kitchen called for breakfast tray.
[2023-11-26 09:13] VITALS: TEMP 37.6
[2023-11-26 09:41] VITALS: BP 139/67; PULSE 68; O2SAT 94
--- NOTE | 2023-11-26 12:27 | PC.NURSE ---
called [facility] for med req, notified provider to order meds.
[2023-11-26] MEDS: Oseltamivir Phosphate 75 MG CAPSULE PO (15:19)
[2023-11-26 16:50] VITALS: BP 139/67; PULSE 68; RESP 20; TEMP 37.6; O2SAT 94
== END 2023-11-26 16:51 | disposition still patient (30) ==
PROVIDERS: Physician Assistant Medical; Emergency Provider Student in an Organized Health Care Education/Training Program
DX: J10.1 Influenza due to other identified influenza virus with other respiratory manifestations (principal); R11.0 Nausea; R26.2 Difficulty in walking, not elsewhere classified; R51.9 Headache, unspecified; I45.10 Unspecified right bundle-branch block; R42 Dizziness and giddiness; R53.1 Weakness; M54.2 Cervicalgia; R94.31 Abnormal electrocardiogram [ECG] [EKG]; Z11.52 Encounter for screening for COVID-19; Z20.822 Contact with and (suspected) exposure to COVID-19; Z79.899 Other long term (current) drug therapy
CPT/HCPCS: 0241U; 36415; 70450; 71045; 72125; 80048; 80076; 81001; 83605; 83690; 83735; 84484; 85025; 85610; 85730; 87040; 93005; 96360; 96361; 97162; 99285

== ENCOUNTER → 2023-11-25 11:48 | Outpatient (BNV) | payer MEDICARE, OTHER, SELFPAY | PROVIDERS: Emergency Provider Student in an Organized Health Care Education/Training Program; Visit Provider Internal Medicine Cardiovascular Disease | DX: I49.1 Atrial premature depolarization (principal) | CPT/HCPCS: 93010 ==

== ENCOUNTER 2023-12-01 12:17 | Inpatient (IN) | payer MEDICARE, OTHER, SELFPAY ==
[2023-12-01] VITALS (10 sets, daily range): BP systolic 94–142; BP diastolic 58–74; PULSE 74–159; RESP 16–35; TEMP 36.6–37.9; O2SAT 89–98; BMI 19.6
--- NOTE | 2023-12-01 | ECG_ITS ---
Test Reason : RAPID AFIB Blood Pressure : / mmHG Vent. Rate : 153 BPM Atrial Rate : 133 BPM P-R Int : 000 ms QRS Dur : 086 ms QT Int : 268 ms P-R-T Axes : 000 -76 074 degrees QTc Int : 427 ms Undetermined rhythm ; suspect sinus tachycardia with frequent PACs Left axis deviation Anterior infarct (cited on or before 11-AUG-2023) Abnormal ECG When compared with ECG of 25-NOV-2023 12:08, rhythm change Referred By: Elyse Aguilar Electronically Signed By:FLYNN FAM
--- NOTE | ~2023-12-01 | XR_ITS ---
EXAMINATION: XR CHEST CLINICAL INFORMATION: Hypoxia COMPARISON: 11/25/2023 chest radiograph. 08/11/[address] TECHNIQUE: AP upright portable 2 views of the chest was obtained. FINDINGS: There is no gross pneumothorax. Redemonstration of previously identified diffuse fibrotic change. New left basilar focal consolidation and small left pleural effusion. Heart size within normal limits. XR/XR chest 1V IMPRESSION: 1. New left basilar focal consolidation is concerning for atelectasis and/or pneumonia. Small left pleural effusion. 2. Redemonstration of previously identified diffuse fibrotic change. This study was presented today, December 01, 2023, for interpretation. Stat results provided at this time as requested by referring provider.
--- NOTE | ~2023-12-01 | MR_ITS ---
EXAMINATION: MR BRAIN WITHOUT CONTRAST CLINICAL INFORMATION: Embolic cerebrovascular accident. COMPARISON: CTA head and neck from 12/01/2023. TECHNIQUE: MRI of the brain was obtained using routine sequences without contrast. Limited evaluation. The patient was unable to tolerate additional imaging. Only axial diffusion-weighted, axial gradient, and sagittal T1 weighted imaging was obtained. FINDINGS: Limited moderately motion degraded exam. No focal restricted diffusion is demonstrated to suggest acute or subacute cerebral ischemia. No evidence of acute or chronic hemorrhagic products on heme-sensitive imaging. Scattered periventricular and deep white matter T2 FLAIR hyperintensities consistent with mild underlying microangiopathy. Proportional prominence of the ventricles and sulcal spaces without evidence of obstructive hydrocephalus. No abnormal mass effect. No midline shift. Normal appearance of the pituitary gland. Normal positioning of the cerebellar tonsils. Normal, homogeneous marrow signal. MR/MR head/brain wo con IMPRESSION: 1. Limited moderately motion degraded exam. 2. Within the limitations of this exam, there is no demonstrated evidence of acute intracranial abnormalities. 3. Mild underlying microangiopathy and generalized cerebral volume loss.
--- NOTE | ~2023-12-01 | CT_ITS ---
EXAMINATION: CTA head and neck with and without contrast CLINICAL INFORMATION: Word finding difficulty, confusion COMPARISON: None available. TECHNIQUE: Test bolus sequences followed by intravenous administration of 70 mL of Omnipaque 350 contrast. Helical imaging was performed in the axial plane from the skull vertex to the thoracic inlet. Delayed postcontrast imaging of the head was also performed. The data was processed at the biomedical engineering technologist workstation for generation of MIP sequences. Angled MIPs and volume rendered reformatted images were also generated at an offline 3D workstation. Stenoses are assessed in accordance with NASCET criteria unless otherwise indicated. This CT examination was performed using dose optimization techniques as appropriate, variously including the following: *Automated exposure control *Adjustment of mA and/or kV according to patient size (this includes techniques or standardized protocols for targeted exams where dose is matched to indication/reason for exam; i.e. extremities or head) *Use of iterative reconstruction technique DLP: 2334 mGy-cm FINDINGS: BRAIN: No acute intracranial hemorrhage or infarct. The david-white matter differentiation is preserved. Patchy hypodensity involving the periventricular and deep white matter compatible with small vessel ischemic disease. Diffuse widening of the sulci with associated ex vacuo dilation of the ventricles compatible with global cerebral atrophy. No midline shift or hydrocephalus. No acute extra-axial fluid collections. The osseous structures are unremarkable. Sequelae of bilateral lens replacement. Otherwise, no orbital pathology. The paranasal sinuses and mastoid air cells are clear. Atherosclerotic calcifications of the bilateral carotid siphons and visualized intracranial vertebral arteries. CTA NECK: Additional artifact is present. Three-vessel aortic arch. The innominate and bilateral subclavian arteries are patent. The origins and cervical segments of the common carotid arteries are patent bilaterally. The common carotid artery bifurcations demonstrate mural calcifications extending into the proximal segments of the cervical internal carotid arteries without significant stenosis. The remaining segments of the cervical internal carotid arteries are patent bilaterally. Nondominant right vertebral artery. Poor evaluation of the right vertebral artery origin which appears to be occluded though this may be artifactual. The origin of the left vertebral arteries patent. The cervical segments of the vertebral arteries are patent bilaterally. No other evidence of hemodynamically significant stenosis, dissection, or aneurysm. The visualized branches of the external carotid arteries are unremarkable. CTA HEAD: Moderate atherosclerotic calcification of the carotid siphons. Anterior circulation: The petrous, cavernous, and supraclinoid segments of the internal carotid arteries are patent bilaterally. Moderate to severe focal stenosis of the proximal right M2 superior branch. The major branches of the anterior and middle cerebral arteries as well as the anterior communicating artery complex are otherwise patent. No large vessel occlusion, saccular aneurysm, or dissection. Posterior circulation: The intracranial vertebral arteries are patent bilaterally. The basilar artery is normal in course and caliber. The posterior cerebral and superior cerebellar arteries arise normally from the basilar summit. Left posterior cerebral artery. No aneurysm. On delayed imaging, the intracranial venous structures demonstrate normal contrast opacification. No filling defect. No abnormal intraparenchymal enhancement. Soft tissues: No suspicious neck mass or cervical adenopathy. Lungs: Biapical scarring. Multifocal spiculated nodular opacities in the bilateral lungs, partially imaged. Bones: No acute osseous abnormality. No lytic or blastic osseous lesions. Multilevel degenerative changes of the visualized spine. CT/CT angio head neck IMPRESSION: Within the limitations of this study, -CT head demonstrates no acute intracranial hemorrhage or edematous infarct. -CTA head demonstrates moderate to severe focal stenosis of the proximal right M2 superior branch. No other sites of large vessel occlusion, saccular aneurysm or dissection. -CTA neck demonstrates poor evaluation of the right vertebral artery origin which appears occluded to this is favored to be artifactual. Otherwise, no hemodynamically significant stenosis, dissection, or aneurysm. Incidentally noted multifocal spiculated nodular opacities in the bilateral lungs. Recommend further evaluation with dedicated CT chest if clinically warranted.
--- NOTE | 2023-12-01 12:48 | ED.WEAKNESS ---
HPI - Weakness General Chief complaint: General Medical Stated complaint: WEAK,FLU THURSDAY PER EMS Time Seen by Provider: 12/01/23 12:47 Related Data Home Medications ?Medication ?Instructions ?Recorded ?Confirmed acetaminophen 650 mg 650 mg PO Q8H PRN Moderate Pain 08/28/21 12/01/23 tablet,extended release (Tylenol (Scale Score 5-6) Arthritis Pain) atorvastatin 80 mg tablet (Lipitor) 80 mg PO DAILY 08/28/21 12/01/23 clopidogrel 75 mg tablet (Plavix) 75 mg PO DAILY 08/28/21 12/01/23 famotidine 20 mg tablet 20 mg PO DAILY 08/28/21 12/01/23 melatonin 3 mg capsule 3 mg PO BEDTIME PRN Insomnia 08/28/21 12/01/23 sertraline 100 mg tablet 100 mg PO DAILY 08/28/21 12/01/23 albuterol sulfate 90 mcg/actuation 2 puff inhalation Q4H PRN 11/26/23 12/01/23 aerosol inhaler (Ventolin HFA) Shortness Of Breath Or Wheezing enalapril maleate 5 mg tablet 5 mg PO BID 11/26/23 12/01/23 fluticasone furoate 200 1 ea inhalation DAILY 11/26/23 12/01/23 mcg-vilanterol 25 mcg/dose inhalation powder (Breo Ellipta) cyanocobalamin (vitamin B-12) 1,000 mcg PO DAILY 12/01/23 12/01/23 1,000 mcg tablet sertraline 50 mg tablet 50 mg PO DAILY 12/01/23 12/01/23 Allergies Allergy/AdvReac Type Severity Reaction Status Date / Time levofloxacin [From LEVAQUIN] Allergy Unknown HIVES Verified 12/01/23 12:51 lidocaine [LIDOCAINE] AdvReac Unknown IV Verified 12/01/23 12:51 SENSITIVE nitroglycerin AdvReac BP Drop Verified 12/01/23 12:51 tamsulosin AdvReac BP Drop Verified 12/01/23 12:51 [facility] Past Medical History Medical History Former smoker CAD (coronary artery disease) History of prostate cancer Mood disorder GERD (gastroesophageal reflux disease) PAD (peripheral artery disease) Atrial fibrillation COPD (chronic obstructive pulmonary disease) FHx: cholecystectomy Surgical History Status post radiation therapy History of appendectomy S/P trigger finger release H/O angioplasty Social History Social History Unable to assess alcohol history related to: Unknown Alcohol intake: never Smoked in Last 30 Days: No Use of substances other than those prescribed or required for medical reasons: No Substance Use Type: Prescription Drugs Advance Directives: Yes Advance Directives Information Provided: Yes Advance Directives on File: No Current occupational status: disabled Current occupation: Rt handed Physical Exam Vital Signs: Vital Signs: Last Vital Signs Temp 97.9 F 12/01/23 15:17 Pulse 92 12/01/23 16:46 Resp 30 H 12/01/23 16:46 BP 118/67 12/01/23 16:46 Pulse Ox 94 12/01/23 16:46 O2 Del Method Oxymask 12/01/23 16:46 O2 Flow Rate 4 12/01/23 16:46 Oxygen Flow Rate 2 12/01/23 12:29 BMI result Body Mass Index 19.6 NIH Stroke Scale Time: 15:27 Level of Consciousness: Alert Level of Consciousness Questions: Answers both questions correctly Level of Consciousness Commands: Performs both tasks correctly Best Gaze: Normal Visual: No visual loss Facial Palsy: Normal Motor Arm (Right): No drift Motor Arm (Left): No drift Motor Leg (Right): No drift Motor Leg (Left): No drift Limb Ataxia: Absent Sensory: Normal Best Language: No aphasia Dysarthia: Normal Extinction and Inattention: No abnormality Score: 0 Course Reevaluation(s) Reevaluation #1: 1. Hypoxia that is improving with NC/ OxyMask and supplemental oxygen which is attributed to influenza and superimposed bacterial pneumonia. 2. Borderline hypotension likely dehydration improved with 1 L of normal saline. 3. Pneumonia with sepsis, no severe sepsis or septic shock patient received 1 L of normal saline and IV ceftriaxone/Zithromax. 4. AFib with RVR due to borderline hypotension AV block was avoided and patient received 1 dose of digoxin heart rate now 90s-110s. elevated troponin with no delta change. Time: 14:40 Reevaluation #2: CT head/ CTA of the head and neck was ordered by the hospitalist felt that the patient had some confusion in the morning and there was a concern of CVA. I think patient's confusion is part of his generalized weakness due to flu and pneumonia, repeat neuro exam is intact with NIH score of 0. Time: 15:26 Medications Administered Generic Name Dose Route Start Last Admin Trade Name Freq PRN Reason Stop Dose Admin Metoprolol Tartrate 12.5 mg 12/01/23 15:55 12/01/23 16:41 Metoprolol Tartrate 12.5 Mg Halftab PO 12.5 mg BID CAMILA Administration Protocol Discontinued Medications Generic Name Dose Route Start Last Admin Trade Name Freq PRN Reason Stop Dose Admin Digoxin 0.25 mg 12/01/23 12:56 12/01/23 13:36 Digoxin 0.5 Mg/2 Ml Ampul IVPUSH 12/01/23 12:57 0.25 mg ONCE ONE Administration Sodium Chloride 1,000 mls @ 999 mls/hr 12/01/23 12:56 12/01/23 14:22 Ns IV 12/01/23 13:56 Infused .Q1H1M ONE Infusion Ceftriaxone Sodium 1 gm/ 50 mls @ 100 mls/hr 12/01/23 14:01 12/01/23 15:41 Sodium Chloride IV 12/01/23 14:30 Infused ONCE ONE Infusion Azithromycin 500 mg/ Sodium 250 mls @ 125 mls/hr 12/01/23 14:01 12/01/23 16:17 Chloride IV 12/01/23 16:00 125 mls/hr ONCE ONE Infusion Iohexol 70 ml 12/01/23 15:50 12/01/23 15:51 Iohexol 350 Mg/Ml 100 Ml Infus..Btl IV 12/01/23 15:51 70 ml ONCE ONE Administration Medical Decision Making Differential Diagnosis Differential Diagnoses: The differential diagnosis associated with the presentation includes ( Pneumonia, sepsis, acute respiratory failure, dehydration, electrolyte derangement, severe anemia, viral infection, ACS, CHF, pneumothorax, pleural effusion.) Admission/Observation Consideration of admission/observation: Escalation of care including admission/observation considered Consult Healthcare Provider Management of the patient was discussed with: Hospitalist ( Dr. Chiang) Lab Data MDM Lab Attestation statement: I reviewed the patient's lab results. 12/01/23 13:46 12/01/23 13:46 Labs: Lab Results 12/01/23 12/01/23 Range/Units 13:46 16:28 WBC 18.4 H (4.8-10.8) X10*3/uL RBC 3.55 L (4.60-5.80) X10*6/uL Hgb 11.0 L (14.0-18.0) g/dl Hct 33.1 L (42.0-52.0) % MCV 93.2 (80.0-98.0) fL MCH 31.0 (27.0-33.0) pg MCHC 33.2 (31.0-36.0) g/dl RDW 14.6 (11.0-16.0) % Plt Count 147 L D (160-400) X10*3/uL MPV 11.2 (9.4-12.4) fL Immature Gran % (Auto) 2.0 H (0.0-0.4) % Neut % (Auto) 94.5 H (45-73) % Lymph % (Auto) 1.1 L (20-40) % [place] % (Auto) 1.6 L (2-11) % Eos % (Auto) 0.4 (0-4) % Baso % (Auto) 0.4 (0-2) % Lymph # (Auto) 0.2 L (1.2-4.9) X10*3/uL [place] # (Auto) 0.3 (0.1-1.2) X10*3/uL Eos # (Auto) 0.1 (0.0-0.4) X10*3/uL Baso # (Auto) 0.1 (0.0-0.2) X10*3/uL Abs Immat Gran (auto) 0.36 H (0.00-0.03) X10*3/uL Absolute Neuts (auto) 17.4 H (2.0-8.3) x10*3/uL Absolute Nucleated RBC 0.000 (0.0-0.012) X10*3/uL Nucleated RBC % (auto) 0.0 (0.0-0.2) /100WBC Smear Tech's Comments VERIFIED Sodium 140 (135-145) mmol/L Potassium 3.4 (3.3-5.1) mmol/L Chloride 105 (96-108) mmol/L Carbon Dioxide 27 (22-29) mmol/L Anion Gap 11 L (12-20) BUN 41 H (9-16) mg/dL Creatinine 0.82 (0.5-1.4) mg/dL Estim Creat Clear Calc 57.4 Estimated GFR > 60 Random Glucose 202 H (60-115) mg/dL Lactic Acid 1.7 (0.5-2.0) mmol/L Calcium 8.8 D (8.4-10.2) mg/dL Total Bilirubin 0.8 (0.0-1.0) mg/dL Direct Bilirubin 0.5 (0.0-0.5) mg/dL AST 39 H (5-37) U/L ALT 25 (0-40) U/L Alkaline Phosphatase 72 (39-117) U/L Troponin I High Sens 49.1 H D 43.0 H (<3.5-35.0) ng/L B-Natriuretic Peptide 264 H (<100) pg/mL Total Protein 5.3 L (6.5-8.0) g/dL Albumin 2.4 L (3.5-5.0) g/dL Lipase 21 (8-78) U/L Influenza Type A (PCR) NEGATIVE (Negative) Influenza Type B (PCR) NEGATIVE (Negative) RSV RNA Qual (PCR) NEGATIVE (Negative) SARS-CoV-2 RNA (RT-PCR) NEGATIVE (Negative) Independent Interpretation I performed an independent interpretation of an: Plain X-Ray ( chest:1. New left basilar focal consolidation is concerning for atelectasis and/or pneumonia. Small left pleural effusion. 2. Redemonstration of previously identified diffuse fibrotic change. ) Radiology Impression Discussion of test interpretation with radiology: I have reviewed the radiologist's reading. Chronic Conditions Patient?s care impacted by: Other ( AFib.) Critical Care Time Critical Care Time Critical Care Time: Yes Total Critical Care Time: 60 Attestation: The patient was critically ill with a high probability of imminent or life-threatening deterioration. I spent greater than 30 minutes of discontinuous time evaluating the patient, delivering critical care at the bedside, discussing evaluating data with consultants. Critical care time does not include time spent performing separately billable procedures or teaching. Time spent performing critical care was 60 minutes. Discharge Plan Discharge Clinical Impression: Pneumonia, Sepsis, Influenza A, Hypoxia, Atrial fibrillation with RVR Patient Disposition: Admitted As Inpatient Print Language: Irish
--- NOTE | 2023-12-01 13:02 | ED_ITS ---
HPI - General Adult General Chief complaint: General Medical Stated complaint: WEAK,FLU THURSDAY PER EMS Time Seen by Provider: 12/01/23 12:47 Source: patient and EMS Mode of arrival: EMS Limitations: no limitations History of Present Illness HPI narrative: 83-year-old male with history of AFib no AC presented to the emergency department for generalized weakness and feeling palpitation patient found to be hypoxic in the emergency department of 85% and rapid atrial fibrillation at 153 with borderline SBP in the 90s, patient was placed on 2 L of oxygen via nasal cannula, given IV fluids and 1 dose of IV digoxin. Patient was was seen in the emergency department 6 days ago and was diagnosed with influenza And patient was started on Tamiflu. Patient report persistent generalized weakness for the past 3-4 days. Related Data Home Medications ?Medication ?Instructions ?Recorded ?Confirmed acetaminophen 650 mg 650 mg PO Q8H PRN Moderate Pain 08/28/21 12/01/23 tablet,extended release (Tylenol (Scale Score 5-6) Arthritis Pain) atorvastatin 80 mg tablet (Lipitor) 80 mg PO DAILY 08/28/21 12/01/23 clopidogrel 75 mg tablet (Plavix) 75 mg PO DAILY 08/28/21 12/01/23 famotidine 20 mg tablet 20 mg PO DAILY 08/28/21 12/01/23 melatonin 3 mg capsule 3 mg PO BEDTIME PRN Insomnia 08/28/21 12/01/23 sertraline 100 mg tablet 100 mg PO DAILY 08/28/21 12/01/23 albuterol sulfate 90 mcg/actuation 2 puff inhalation Q4H PRN 11/26/23 12/01/23 aerosol inhaler (Ventolin HFA) Shortness Of Breath Or Wheezing enalapril maleate 5 mg tablet 5 mg PO BID 11/26/23 12/01/23 fluticasone furoate 200 1 ea inhalation DAILY 11/26/23 12/01/23 mcg-vilanterol 25 mcg/dose inhalation powder (Breo Ellipta) cyanocobalamin (vitamin B-12) 1,000 mcg PO DAILY 12/01/23 12/01/23 1,000 mcg tablet sertraline 50 mg tablet 50 mg PO DAILY 12/01/23 12/01/23 Allergies Allergy/AdvReac Type Severity Reaction Status Date / Time levofloxacin [From LEVAQUIN] Allergy Unknown HIVES Verified 12/01/23 12:51 lidocaine [LIDOCAINE] AdvReac Unknown IV Verified 12/01/23 12:51 SENSITIVE nitroglycerin AdvReac BP Drop Verified 12/01/23 12:51 tamsulosin AdvReac BP Drop Verified 12/01/23 12:51 Review of Systems 2 Review of Systems: All other systems are reviewed and are negative Constitutional: Reports as per HPI and Reports no additional constitutional complaints Eyes: Reports as per HPI and Reports no additional eye complaints Reports system reviewed and no additional complaints, except as documented Cardiovascular: Reports as per HPI and Reports no additional cardiovascular complaints Respiratory: Reports as per HPI and Reports no additional respiratory complaints Gastrointestinal: Reports as per HPI and Reports no additional gastrointestinal complaints Genitourinary: Reports no additional female genitourinary complaints Musculoskeletal: Reports no additional musculoskeletal complaints Skin/Breast: Reports system reviewed and no additional complaints, except as docu Psychiatric: Reports no additional psychiatric complaints Endocrine: Reports no additional endocrine complaints Hematologic/Lymphatic: Reports no additional hematologic/lymphatic complaints Allergic/Immunologic: Reports no additional allergic/immunologic complaints Reports system reviewed and no additional complaints, except as documented and Reports Abnormal speech present [facility] Past Medical History Medical History (Updated 12/02/23 @ 10:29 by Vinnie Rios MD) Former smoker CAD (coronary artery disease) History of prostate cancer Mood disorder GERD (gastroesophageal reflux disease) PAD (peripheral artery disease) Atrial fibrillation COPD (chronic obstructive pulmonary disease) FHx: cholecystectomy Surgical History Status post radiation therapy History of appendectomy S/P trigger finger release H/O angioplasty Social History Social History Household Members: None Housing: Apartment Do you presently have visiting nurse or other home services: No Unable to assess alcohol history related to: Unknown Alcohol intake: never Patient Tobacco Use Status: Former Tobacco user Tobacco use type: Cigarette e-Cigarette/Vaping Use: Never Used Second Hand Smoke Exposure: No Substance Use Type: Prescription Drugs Advance Directives Date on File: 12/01/23 service: No Current occupational status: disabled Current occupation: Rt handed Physical Exam ED Vital Signs: Vital Signs - 24 hr 12/01/23 12:29 Temperature 99.1 F Pulse Rate 159 H Respiratory Rate 26 H Blood Pressure 94/74 Pulse Oximetry 94 Oxygen Delivery Method [place] Nasal Cannula BMI result Body Mass Index 19.6 Vital signs have been reviewed and appear to be correct. Blood pressure elevated. Heart rate elevated. Respiratory rate normal. Temperature normal. Oxygen saturation normal. Appearance: Alert. Oriented X3. No acute distress. Head: Normal external exam. Normocephalic. Atraumatic. No Doyle signs noted. No raccoon eyes noted Eyes: PERRLA. EOMI. Conjunctiva and sclera normal. Eyelids normal. ENT: TM's Normal. Pharynx normal. Uvula midline. Moist mucous membranes. No trismus noted. No drooling noted. No muffled voice noted. Neck: Normal inspection. Neck supple. FROM. No adenopathy. Thyroid Normal. No meningeal signs. No neck mass noted. CVS: Rapid and irregular heart rate. Heart sound normal. No murmurs noted. Pulses normal throughout. Respiratory: No respiratory distress. Painless inspiration. Breath sounds normal. No wheezes/rales/rhonchi noted. Chest nontender. No accessory muscle usage noted or decreased air movement noted. Abdomen: Soft and nontender. Bowel sounds normal in all 4 quadrants. No distention noted. No organomegaly noted. No visible injury noted. Back: No CVA tenderness. Full range of motion noted. Skin: Skin warm and dry. Normal skin color. Normal skin turgor. No rashes/lesions/lacerations noted. Extremities: No lower extremity edema. Extremities exhibit normal range of motion. Extremities nontender. Neuro: Oriented X 3. Cranial nerve exam: II-XII are grossly intact No motor deficit. No sensory deficit. Reflexes normal. Medications Administered Generic Name Dose Route Start Last Admin Trade Name Freq PRN Reason Stop Dose Admin Albuterol/Ipratropium 3 ml 12/01/23 16:00 12/02/23 19:55 Albuterol/Iprat 2.5/0.5mg 3 Ml Ampul.Neb INHALE 3 ml RQ4H WHILE AWAKE CAMILA Administration Apixaban 5 mg 12/01/23 21:00 12/02/23 20:57 Apixaban 5 Mg Tablet PO 5 mg BID CAMILA Administration Atorvastatin Calcium 80 mg 12/02/23 09:00 12/02/23 08:24 Atorvastatin Calcium 80 Mg Tablet PO 80 mg DAILY CAMILA Administration Clopidogrel Bisulfate 75 mg 12/02/23 09:00 12/02/23 08:24 Clopidogrel Bisulfate 75 Mg Tablet PO 75 mg DAILY CAMILA Administration Cyanocobalamin 1,000 mcg 12/02/23 09:00 12/02/23 08:24 Cyanocobalamin (Vitamin B-12) 1,000 Mcg Tablet PO 1,000 mcg DAILY CAMILA Administration Enalapril Maleate 5 mg 12/01/23 21:00 12/02/23 20:57 Enalapril Maleate 5 Mg Tablet PO 5 mg BID CAMILA Administration Protocol Famotidine 20 mg 12/02/23 09:00 12/02/23 08:24 Famotidine 20 Mg Tablet PO 20 mg DAILY CAMILA Administration Fluticasone/Vilanterol 1 puff 12/02/23 08:00 12/02/23 07:51 Fluticasone/Vilanterol 200/25 Blst.W.Dev INHALE 1 puff RDAILY CAMILA Administration Vancomycin HCl 1,250 mg/ 250 mls @ 166.667 mls/hr 12/02/23 23:00 12/03/23 02:38 Sodium Chloride IV Infused Q24H CAMILA Infusion Ceftriaxone Sodium 1 gm/ 50 mls @ 100 mls/hr 12/02/23 18:45 12/02/23 20:50 Sodium Chloride IV Infused Q24H CAMILA Infusion Metoprolol Tartrate 12.5 mg 12/01/23 15:55 12/02/23 20:57 Metoprolol Tartrate 12.5 Mg Halftab PO 12.5 mg BID CAMILA Administration Protocol Sertraline HCl 50 mg 12/02/23 09:00 12/02/23 08:24 Sertraline Hcl 50 Mg Tablet PO 50 mg DAILY CAMILA Administration Sertraline HCl 100 mg 12/02/23 09:00 12/02/23 08:24 Sertraline Hcl 100 Mg Tablet PO 100 mg DAILY CAMILA Administration Sodium Chloride 3 ml 12/02/23 00:00 12/02/23 23:38 0.9 % Sodium Chloride Flush 3 Ml Syringe IVFLUSH 3 ml QSHIFT CAMILA Administration Discontinued Medications Generic Name Dose Route Start Last Admin Trade Name Freq PRN Reason Stop Dose Admin Digoxin 0.25 mg 12/01/23 12:56 12/01/23 13:36 Digoxin 0.5 Mg/2 Ml Ampul IVPUSH 12/01/23 12:57 0.25 mg ONCE ONE Administration Sodium Chloride 1,000 mls @ 999 mls/hr 12/01/23 12:56 12/01/23 14:22 Ns IV 12/01/23 13:56 Infused .Q1H1M ONE Infusion Ceftriaxone Sodium 1 gm/ 50 mls @ 100 mls/hr 12/01/23 14:01 12/01/23 15:41 Sodium Chloride IV 12/01/23 14:30 Infused ONCE ONE Infusion Azithromycin 500 mg/ Sodium 250 mls @ 125 mls/hr 12/01/23 14:01 12/01/23 19:14 Chloride IV 12/01/23 16:00 Infused ONCE ONE Infusion Vancomycin HCl 1,500 mg/ 500 mls @ 333.333 mls/hr 12/02/23 00:00 12/02/23 02:59 Sodium Chloride IV 12/02/23 01:29 Infused ONCE ONE Infusion Iohexol 70 ml 12/01/23 15:50 12/01/23 15:51 Iohexol 350 Mg/Ml 100 Ml Infus..Btl IV 12/01/23 15:51 70 ml ONCE ONE Administration Medical Decision Making Differential Diagnosis Differential Diagnoses: The differential diagnosis associated with the presentation includes (Pneumonia, sepsis, atrial fibrillation with RVR, influenza, electrolyte derangement, severe anemia) Admission/Observation Consideration of admission/observation: Escalation of care including admission/observation considered Consult Healthcare Provider Management of the patient was discussed with: Hospitalist (Dr. Chiang) Lab Data MDM Lab Attestation statement: I reviewed the patient's lab results. 12/02/23 06:45 12/02/23 07:18 Labs: Lab Results 12/01/23 12/01/23 Range/Units 13:46 16:28 WBC 18.4 H (4.8-10.8) X10*3/uL RBC 3.55 L (4.60-5.80) X10*6/uL Hgb 11.0 L (14.0-18.0) g/dl Hct 33.1 L (42.0-52.0) % MCV 93.2 (80.0-98.0) fL MCH 31.0 (27.0-33.0) pg MCHC 33.2 (31.0-36.0) g/dl RDW 14.6 (11.0-16.0) % Plt Count 147 L D (160-400) X10*3/uL MPV 11.2 (9.4-12.4) fL Immature Gran % (Auto) 2.0 H (0.0-0.4) % Neut % (Auto) 94.5 H (45-73) % Lymph % (Auto) 1.1 L (20-40) % [place] % (Auto) 1.6 L (2-11) % Eos % (Auto) 0.4 (0-4) % Baso % (Auto) 0.4 (0-2) % Lymph # (Auto) 0.2 L (1.2-4.9) X10*3/uL [place] # (Auto) 0.3 (0.1-1.2) X10*3/uL Eos # (Auto) 0.1 (0.0-0.4) X10*3/uL Baso # (Auto) 0.1 (0.0-0.2) X10*3/uL Abs Immat Gran (auto) 0.36 H (0.00-0.03) X10*3/uL Absolute Neuts (auto) 17.4 H (2.0-8.3) x10*3/uL Absolute Nucleated RBC 0.000 (0.0-0.012) X10*3/uL Nucleated RBC % (auto) 0.0 (0.0-0.2) /100WBC Smear Tech's Comments VERIFIED Sodium 140 (135-145) mmol/L Potassium 3.4 (3.3-5.1) mmol/L Chloride 105 (96-108) mmol/L Carbon Dioxide 27 (22-29) mmol/L Anion Gap 11 L (12-20) BUN 41 H (9-16) mg/dL Creatinine 0.82 (0.5-1.4) mg/dL Estim Creat Clear Calc 57.4 Estimated GFR > 60 Random Glucose 202 H (60-115) mg/dL Lactic Acid 1.7 (0.5-2.0) mmol/L Calcium 8.8 D (8.4-10.2) mg/dL Total Bilirubin 0.8 (0.0-1.0) mg/dL Direct Bilirubin 0.5 (0.0-0.5) mg/dL AST 39 H (5-37) U/L ALT 25 (0-40) U/L Alkaline Phosphatase 72 (39-117) U/L Troponin I High Sens 49.1 H D 43.0 H (<3.5-35.0) ng/L B-Natriuretic Peptide 264 H (<100) pg/mL Total Protein 5.3 L (6.5-8.0) g/dL Albumin 2.4 L (3.5-5.0) g/dL Triglycerides 114 (<150) mg/dL Cholesterol 83 (<200) mg/dL LDL Cholesterol, Calc 52 (<100) mg/dL HDL Cholesterol 9 L (>40) mg/dL Lipase 21 (8-78) U/L Influenza Type A (PCR) NEGATIVE (Negative) Influenza Type B (PCR) NEGATIVE (Negative) RSV RNA Qual (PCR) NEGATIVE (Negative) SARS-CoV-2 RNA (RT-PCR) NEGATIVE (Negative) Independent Interpretation I performed an independent interpretation of an: Plain X-Ray (Chest:1. New left basilar focal consolidation is concerning for atelectasis and/or pneumonia. Small left pleural effusion. 2. Redemonstration of previously identified diffuse fibrotic change.) Radiology Impression Discussion of test interpretation with radiology: I have reviewed the radiologist's reading. Critical Care Time Critical Care Time Critical Care Time: Yes Total Critical Care Time: 60 Attestation: The patient was critically ill with a high probability of imminent or life- threatening deterioration. I spent greater than 30 minutes of discontinuous time evaluating the patient, delivering critical care at the bedside, discussing evaluating data with consultants. Critical care time does not include time spent performing separately billable procedures or teaching. Time spent performing critical care was 60 minutes. Discharge Plan Discharge Clinical Impression: Pneumonia, Sepsis, Influenza A, Hypoxia, Atrial fibrillation with RVR Patient Disposition: Admitted As Inpatient Interventions: Admission Worksheet (ED) Last Done: 12/02/23 03:51 Discharge Date/Time: 12/02/23 04:44
[2023-12-01] MEDS: 0.9 % Sodium Chloride 1,000 ML 999 ML IV (13:21)
[2023-12-01] MEDS: Digoxin 0.5 MG/2 ML AMPUL 0.25 MG IVPUSH (13:36)
[2023-12-01 14:04] LABS: Basophils Absolute Auto 0.1 X10*3/uL (0.0-0.2); Basophils Percent Auto 0.4 % (0-2); Eosinophils Absolute Auto 0.1 X10*3/uL (0.0-0.4); Eosinophils Percent Auto 0.4 % (0-4); Hematocrit 33.1 % (42.0-52.0); Imm Gran Abs Auto 0.36 X10*3/uL (0.00-0.03); Lymphocytes Absolute Auto 0.2 X10*3/uL (1.2-4.9); Lymphocytes Percent Auto 1.1 % (20-40); MANUAL DIFF FLAG SCAN; Mean Corpuscular HGB Conc 33.2 g/dl (31.0-36.0); Mean Corpuscular Volume 93.2 fL (80.0-98.0); Mean Platelet Volume 11.2 fL (9.4-12.4); Monocytes Absolute Auto 0.3 X10*3/uL (0.1-1.2); Monocytes Percent Auto 1.6 % (2-11); Neutrophils Absolute Auto 17.4 x10*3/uL (2.0-8.3); Neutrophils Percent Auto 94.5 % (45-73); Platelet Count 147 X10*3/uL (160-400); Red Blood Count 3.55 X10*6/uL (4.60-5.80); Red Cell Distribution Width 14.6 % (11.0-16.0); SCAN SMEAR FLAG 1; White Blood Count 18.4 X10*3/uL (4.8-10.8)
[2023-12-01 14:17] LABS: Lactic Acid 1.7 mmol/L (0.5-2.0)
[2023-12-01 14:20] LABS: Alanine Aminotransferase 25 U/L (0-40); Albumin Level 2.4 g/dL (3.5-5.0); Alkaline Phosphatase 72 U/L (39-117); Anion Gap 11 (12-20); Aspartate Amino Transferase 39 U/L (5-37); Bilirubin Direct 0.5 mg/dL (0.0-0.5); Bilirubin Total 0.8 mg/dL (0.0-1.0); Blood Urea Nitrogen 41 mg/dL (9-16); Calcium 8.8 mg/dL (8.4-10.2); Carbon Dioxide 27 mmol/L (22-29); Chloride 105 mmol/L (96-108); Creatinine Clr Calc Pharmacy 57.4; Estimated Glomerular Filt Rate > 60; Glucose Random 202 mg/dL (60-115); Lipase 21 U/L (8-78); Potassium 3.4 mmol/L (3.3-5.1); Sodium 140 mmol/L (135-145); Total Protein 5.3 g/dL (6.5-8.0)
[2023-12-01 14:25] LABS: B Type Natriuretic Peptide 264 pg/mL (<100); SLIDE REVIEW VERIFIED
[2023-12-01] MEDS: cefTRIAXone sodium 1 GM in 0.9 % Sodium Chloride 50 ML IV (14:37)
[2023-12-01 14:41] LABS: Influenza A PCR NEGATIVE (Negative); Influenza B PCR NEGATIVE (Negative); Resp Syncy Virus RNA Qual PCR NEGATIVE (Negative); SARS COV2 PCR INHOUSE NEGATIVE (Negative)
--- NOTE | 2023-12-01 14:57 | PHA.MEDREC ---
Pharmacy Consult ? Medication Reconciliation Pharmacy has completed the medication reconciliation. Patient from [facility] with medication list. Gemma Murray, AbdulazizD
[2023-12-01 15:04] LABS: Troponin-I High Sensitivity 49.1 ng/L (<3.5-35.0)
--- NOTE | 2023-12-01 15:21 | P.HPHOSP_ITS ---
History of Present Illness Date of Service: 12/01/23 Attending physician on admission: Cinthya Delcid Chief Complaint: weakness, sob, palpitations 83 year old male with history of paroxysmal atrial fibrillation not on ac, htn, copd, PAD on plavix, hx of prostate ca s/p radiation, CAD, GERD presents to the ED for evaluation of generalized weakness, dyspnea, and palpitations ongoing several days. He was recently diagnosed with influenza A 6 days ago and completed tamiflu. he reports his cough and congestion has improved but has had worsening of the above symptoms. No fevers or chills. He does also tell me for a period around 30 minutes he experienced word finding difficulty and confusion that resolved spontaneously. He denies focal weakness, paresthesias, slurred speech, facial droop, gait imbalance. Per EMS, was found to be in AFib with rate 160 improved to 1 20s with IV fluids. POC was 308. Was also hypoxic to 86% and placed on 4 L via OxyMask. During examination was also witnessed to drop to 88% despite 4 L with any movement or when talking. He was also initially tachypneic to 35. No hypotension though blood pressure is soft 138/69 with IV fluids. There was a leukocytosis of 18.4. Renal function baseline, electrolyte levels normal. Glucose 202. Lactic acid 1.7. Initial troponin 49.1, repeat pending. BNP 264. Influenza, RSV, COVID-19 negative. CXR shows new left basilar focal consolidation concerning for atelectasis versus pneumonia and small left-sided pleural effusion. There is all so redemonstration of previously identified diffuse fibrotic changes. EKG shows unspecified rhythm though appears consistent with atrial fibrillation, rate [address] or depressions. In the ED, initiated on 0.25 mg IV digoxin, given 1 L IV NS, 1 g ceftriaxone and 500 mg IV Zithromax. Patient will be admitted for further management of acute left lower lobe pneumonia with sepsis and acute hypoxemic respiratory failure as well as atrial fibrillation with RVR. Review of Systems 2 Review of Systems: General: No fevers, malaise, unintentional weight loss. +general weakness HEENT: No blurred vision, diplopia. No sore throat, nasal congestion, rhinorrhea, sinus pain, ear pain Cardiovascular: +palpitations. No chest pain or leg edema Respiratory: +sob, +cough, +chest congestion. No wheezing GI: No abdominal pain, nausea, vomiting, diarrhea, constipation, melena, hematochezia : No dysuria, hematuria, increased urinary frequency, decreased urinary output MSK: No myalgia, back pain Neuro: +word finding difficulty, +confusion. No headaches, weakness, paresthesias Skin: No rashes or lesions [facility] Medical History Former smoker CAD (coronary artery disease) History of prostate cancer Mood disorder GERD (gastroesophageal reflux disease) PAD (peripheral artery disease) Atrial fibrillation COPD (chronic obstructive pulmonary disease) FHx: cholecystectomy Surgical History Status post radiation therapy History of appendectomy S/P trigger finger release H/O angioplasty Social History Household Members: None Housing: Apartment Do you presently have visiting nurse or other home services: No Unable to assess alcohol history related to: Unknown Alcohol intake: never Patient Tobacco Use Status: Former Tobacco user Tobacco use type: Cigarette e-Cigarette/Vaping Use: Never Used Second Hand Smoke Exposure: No Substance Use Type: Prescription Drugs Advance Directives Date on File: 12/01/23 Current occupational status: disabled Current occupation: Rt handed Meds Allergies Allergy/AdvReac Type Severity Reaction Status Date / Time levofloxacin [From LEVAQUIN] Allergy Unknown HIVES Verified 12/01/23 12:51 lidocaine [LIDOCAINE] AdvReac Unknown IV Verified 12/01/23 12:51 SENSITIVE nitroglycerin AdvReac BP Drop Verified 12/01/23 12:51 tamsulosin AdvReac BP Drop Verified 12/01/23 12:51 Active Medications: Current Medications Azithromycin 500 mg/ Sodium (Chloride) 250 mls @ 125 mls/hr IV ONCE ONE Stop: 12/01/23 16:00 Home Medications ?Medication ?Instructions ?Recorded ?Confirmed ?Last Taken ?Type acetaminophen 650 mg 650 mg PO Q8H PRN Moderate Pain 08/28/21 12/01/23 Unknown History tablet,extended release (Tylenol (Scale Score 5-6) Arthritis Pain) atorvastatin 80 mg tablet (Lipitor) 80 mg PO DAILY 08/28/21 12/01/23 Unknown History clopidogrel 75 mg tablet (Plavix) 75 mg PO DAILY 08/28/21 12/01/23 Unknown History famotidine 20 mg tablet 20 mg PO DAILY 08/28/21 12/01/23 Unknown History melatonin 3 mg capsule 3 mg PO BEDTIME PRN Insomnia 08/28/21 12/01/23 Unknown History sertraline 100 mg tablet 100 mg PO DAILY 08/28/21 12/01/23 Unknown History albuterol sulfate 90 mcg/actuation 2 puff inhalation Q4H PRN 11/26/23 12/01/23 Unknown History aerosol inhaler (Ventolin HFA) Shortness Of Breath Or Wheezing enalapril maleate 5 mg tablet 5 mg PO BID 11/26/23 12/01/23 Unknown History fluticasone furoate 200 1 ea inhalation DAILY 11/26/23 12/01/23 Unknown History mcg-vilanterol 25 mcg/dose inhalation powder (Breo Ellipta) cyanocobalamin (vitamin B-12) 1,000 mcg PO DAILY 12/01/23 12/01/23 Unknown History 1,000 mcg tablet sertraline 50 mg tablet 50 mg PO DAILY 12/01/23 12/01/23 Unknown History Physical Exam 2 Vital Signs and Narrative: Vital Signs: Last Vital Signs Temp 99.1 F 12/01/23 12:29 Pulse 96 12/01/23 13:58 Resp 35 H 12/01/23 13:58 BP 106/58 L 12/01/23 13:58 Pulse Ox 97 12/01/23 13:58 O2 Del Method Oxymask 12/01/23 13:58 Oxygen Flow Rate 2 12/01/23 12:29 BMI result Body Mass Index 19.6 Constitutional - Awake and Alert, No apparent distress Eyes - PERRLA, EOMI Cardiovascular - S1S2, irregularly irregular, regular rate, No edema Respiratory - Normal lung expansion, Normal respiratory effort, No respiratory distress, diminished lungs bilaterally Gastrointestinal - NT / ND; +BS; No rebound or guarding Extremities - no calf tenderness bilaterally, no swelling Skin - Warm/Dry Neurological - Alert & oriented x3 Psychological - Appropriate affect Results Labs 12/02/23 06:45 12/02/23 07:18 Labs: Laboratory Results - last 24 hr 12/01/23 13:46 MCV 93.2 MCH 31.0 MCHC 33.2 RDW 14.6 Plt Count 147 L D MPV 11.2 Immature Gran % (Auto) 2.0 H Neut % (Auto) 94.5 H Lymph % (Auto) 1.1 L Freestone % (Auto) 1.6 L Eos % (Auto) 0.4 Baso % (Auto) 0.4 Lymph # (Auto) 0.2 L [place] # (Auto) 0.3 Eos # (Auto) 0.1 Baso # (Auto) 0.1 Abs Immat Gran (auto) 0.36 H Absolute Neuts (auto) 17.4 H Absolute Nucleated RBC 0.000 Nucleated RBC % (auto) 0.0 Smear Tech's Comments VERIFIED Anion Gap 11 L Estim Creat Clear Calc 57.4 Estimated GFR > 60 Random Glucose 202 H Lactic Acid 1.7 Calcium 8.8 D Total Bilirubin 0.8 Direct Bilirubin 0.5 AST 39 H ALT 25 Alkaline Phosphatase 72 Troponin I High Sens 49.1 H D B-Natriuretic Peptide 264 H Total Protein 5.3 L Albumin 2.4 L Lipase 21 Influenza Type A (PCR) NEGATIVE Influenza Type B (PCR) NEGATIVE RSV RNA Qual (PCR) NEGATIVE SARS-CoV-2 RNA (RT-PCR) NEGATIVE Imaging Radiologist's Impressions: Impressions Chest X-Ray 12/01/23 13:10 IMPRESSION: 1. New left basilar focal consolidation is concerning for atelectasis and/or pneumonia. Small left pleural effusion. 2. Redemonstration of previously identified diffuse fibrotic change. This study was presented today, December 01, 2023, for interpretation. Stat results provided at this time as requested by referring provider. Assessment and Plan (1) Atrial fibrillation with RVR: Status: Acute (2) Hypoxia: Status: Acute (3) Pneumonia: Status: Acute (4) Sepsis: Status: Acute (5) Word finding difficulty: Status: Acute Plan 83 year old male with history of paroxysmal atrial fibrillation not on ac, htn, copd, PAD on plavix, hx of prostate ca s/p radiation, CAD, GERD admitted for further management of acute LLL pneumonia with sepsis and acute hypoxemic respiratory failure and atrial fibrillation with RVR. #Paroxysmal atrial fibrillation with rvr- rate controlled on admission -chest 2 Vasc score at least 4 (unk if CHF, possible TIA) -start eliquis 5mg BID if head ct negative for bleed -start metoprolol 12.5 mg bid -cardiac diet -echo -cardiology consult -monitor on telemetry # acute hypoxemic respiratory failure secondary to postviral bacterial pneumonia with sepsis -diagnosed with influenza 6 days ago completed Tamiflu. Negative for COVID-19, influenza, RSV today -leukocytosis 18.5, tachypnea. Tachycardia due to atrial fibrillation. Lactic acid normal, no end-organ damage. No severe sepsis/shock. Sepsis resolved on admission 1600 -CXR shows left-sided basilar consolidation -IV ceftriaxone and azithromycin (initiated 11/30) -symptomatic management -DuoNebs q.4h while awake -check sputum culture, strep pneumo antigen, Legionella antigen -follow CBC, cultures -continue supplemental O2 to maintain oximetry 90-92% #Word finding difficulty/confusion- ?TIA vs embolic cva- resolved prior to admission -no focal neuro deficits on admission -Head CT/CTA head neck shows moderate to severe stenosis of the proximal right M2 superior branch but no other sites of large vessel occlusion, saccular aneurysm, or dissection. Also occlusion of the right vertebral artery origin but this is more likely artifactual. -Findings discussed with Dr. Hollingsworth. Pt is right handed so severe stenosis noted above unlikely to have caused pt's symptoms, could be throwing emboli -MRI brain ordered -received plavix this morning, start eliquis as above -mri brain am -check lipids, continue atorvastatin 80mg daily -neurology consult -neuro checks, swallow eval, stroke edu -monitor on tele # COPD -no acute exacerbation -continue maintenance inhalers, albuterol p.r.n. # hypertension -initiate metoprolol 12.5 mg b.i.d. as above. Resume lisinopril 5 mg as blood pressure allows # PAD -continue Plavix # GERD -continue PPI # mood disorder -continue home medications # CAD -no anginal chest pain -initial troponin 46, repeat pending -EKG without ST/depression -initiate beta-tressa as above, continue Plavix, statin DVT prophylaxis- Eliquis DNR/DNI Patient requires inpatient stay at least 2 midnights for management of acute hypoxemic respiratory failure and sepsis secondary to pneumonia requiring IV antibiotics and supplemental O2 as well as close monitoring of respiratory status. He will also require close cardiac monitoring and expert consultation due to atrial fibrillation with RVR though rate is now controlled on admission. Quality Stroke Does the patient have a stroke diagnosis?: Yes Reason for No Anti-thrombotic by Day Two: Drug treatment not indicated VTE Prior VTE?: No VTE Risk Level:: Medical - moderate - high VTE Device Contraindication: Treatment Not Indicated VTE Drug Contraindication: N/A - Med Ordered
--- NOTE | 2023-12-01 15:25 | MHC.EDTECH ---
this pct assumed care of patient at 1500 ,patient alert and oriented ,no apparent distress noted ,vitals taken ,patient belonging list done ,and patient was reposition and boosted up in bed ,Call hernandez within Pt reach .
[2023-12-01] MEDS: Azithromycin 500 MG in 0.9 % Sodium Chloride 250 ML 125 MG IV (15:26)
--- NOTE | 2023-12-01 15:35 | PC.NURSE ---
pt medicated per MAr
[2023-12-01] MEDS: iohexoL 350 MG/ML 100 ML INFUS..BTL 70 ML IV (15:51)
--- NOTE | 2023-12-01 16:37 | MHC.EDTECH ---
PATIENT 2ND SET OF BLOOD CULTURE AND 2ND TROP DRAWN AND SENT TO LAB .
[2023-12-01] MEDS: Metoprolol Tartrate 12.5 MG HALFTAB PO ×2 (16:41→21:32)
[2023-12-01] MEDS: Albuterol/Iprat 2.5/0.5MG 3 ML AMPUL.NEB INHALE ×2 (17:18→19:57)
--- NOTE | 2023-12-01 18:20 | MHC.EDTECH ---
PT WAS 1 ASSISTED TO COMMODE TO HAVE A BOWEL MOVEMENT, PT WAS CLEANED AND ASSISTED BACK TO BED. PT IS SITTING UPRIGHT COMFORTABLY, WARM BLANKET GIVEN, CALL JUDD WITHIN REACH. RN AWARE
[2023-12-01 18:35] LABS: Cholesterol 83 mg/dL (<200); HDL Cholesterol 9 mg/dL (>40); LDL Cholesterol Calculated 52 mg/dL (<100); Triglycerides 114 mg/dL (<150)
--- NOTE | 2023-12-01 20:33 | PC.NURSE ---
Assumed care of pt. Granddaughter at bedside. Pt mago hernandez, no acute distress at this time. Pt on O2. Neuro intact at this time, and granddaughter corroborates findings as baseline.
--- NOTE | 2023-12-01 20:47 | PC.NURSE ---
MRI screening form faxed to MRI
[2023-12-01] MEDS: Apixaban 5 MG TABLET PO (21:32)
[2023-12-01 23:20] LABS: Appearance Urine Clear; Color Urine Dark Yellow; Glucose Urine UA 100 mg/dL (Negative); Leukocyte Esterase Urine Negative (Negative); Nitrite Urine Negative (Negative); PH 6.5 (5.0-9.0); Specific Gravity - Urine >= 1.030 (1.005-1.025); UMIC TRIGGER UACC YES; Urine Blood Negative (Negative); Urine Ketones Negative (Negative); Urine Protein 30 (1+) mg/dL (Neg-Trace)
[2023-12-01 23:37] LABS: Bacteria Urine None Seen (None Seen); RBC Urine 0-2 /HPF (0-2); WBC Urine 0-5 /HPF (0-5)
--- NOTE | 2023-12-01 23:39 | PM.EVENT ---
Event Note Date of Service: 12/01/23 Event Note: 11:38 PM- contacted to notify BCs 2 bottles (1 set) showed Gram-positive cocci. Therapy with vancomycin was ordered. Time Spent With Patient Time: Total time managing care of this patient today ____ minutes.
[2023-12-02] VITALS (11 sets, daily range): BP systolic 126–154; BP diastolic 67–78; PULSE 80–105; RESP 16–21; TEMP 36.5–37.3; O2SAT 85–99; BMI 19.1
[2023-12-02] MEDS: vancomycin HCL 1,500 MG in 0.9 % Sodium Chloride 500 ML 333.33 MG IV (01:07)
--- NOTE | 2023-12-02 02:28 | PC.NURSE ---
Vanco slow running d/t pt inabililty to keep arm straight. Reeducated on need for abx and correct arm positioning.
--- NOTE | 2023-12-02 07:00 | CA_ITS ---
Transthoracic Echocardiogram Patient (Last, First, Middle): Aldo Wright M Gender: Male Date of : 1940 Age: 83 Procedure Date: 12/02/2023 Procedure Type: Transthoracic E[place]ocardiogram [place] [facility] [place]: 172.72 cm Weight: 56.7 kg BSA: 1.67 m2 Heart Rate: bpm BP: 136 / 75 mmHg Hose Inspector And Patcher: Referring MD: Yesenia SRIVASTAVA Symptoms: afib rvr Study Quality: Fair ECG Rhythm: Sinus Conclusions: - The left ventricular systolic function is mildly decreased. The calculated ejection fraction is 48% by biplane method. - The basal inferior and mid inferior segments are hypokinetic. - No obvious valvular pathology seen on this study. Findings Left Ventricle Normal left ventricular cavity size. There is normal left ventricular wall thickness. The left ventricular systolic function is mildly decreased. The calculated ejection fraction is 48% by biplane method. There is evidence of regional wall motion abnormalities. Diastolic function is normal for age. Wall Motion Rest Echo Findings The basal inferior and mid inferior segments are hypokinetic. Right Ventricle Normal right ventricular cavity size and systolic function. Atria The left atrium is mildly dilated. The right atrium is normal in size. Aortic Valve There is a normal trileaflet aortic valve. There is no aortic valve stenosis. There is no aortic valve regurgitation. Mitral Valve There is mild mitral annular calcification. There is trace mitral valve regurgitation. There is no mitral valve stenosis. Pulmonic Valve The pulmonic valve is likely normal. Tricuspid Valve Normal tricuspid valve structure. There is trace tricuspid valve regurgitation. There is no evidence of pulmonary hypertension. Great Vessels The asc aorta is normal in size. Venous The inferior vena cava is normal in size and collapses greater than 50% with inspiration. Pericardium/Pleural There is no evidence of pericardial effusion. Prior Study Comparison No prior study available for comparison. Recommendations, Care & Conclusions No obvious valvular pathology seen on this study. Measurements 2D Linear Measurements IVSd: 0.95 0.6-0.9/0.6-1.0 cm LVIDd: 4.00 3.9-5.3/4.2-5.9 cm LVIDd Index: 2.40 2.4-3.2/2.2-3.1 cm/m2 LVIDs: 2.51 2.0-3.6 cm LVPWd: 0.89 0.7-1.1 cm Ao Root: 3.70 2.1-3.5 cm LA Diam: 3.20 2.7-3.8/3.0-4.0 cm LAIDs Index: 1.92 1.5-2.3 cm/m2 LV Mass: 140.48 67-162/88-224 g LV Mass Index: 84.12 43-95/49-115 g/m2 LVOT Diam: 2.30 3.0+(-)1.3 cm 2D Systolic Function EF 4C: 54.20 >55% EF 2C: 43.90 >55% EF BiP: 47.60 >55% Mitral Valve MV Pk E: 0.75 MV PK A: 0.84 MV Decel Time: 238.00 E/A: 0.90 E'Lateral: 8.16 E'Medial: 6.85 E/E' Med: 11.00 E/E' Lat: 9.20 PHT: 70.00 MVA PHT: 3.14 Decel Caswell: 3.17 Aortic Valve AoV Pk Parker: 1.26 AoV Mn Parker: 0.86 AoV VTI: 0.27 AoV Pk Grad: 6.00 Aov Mn Grad: 3.00 JOSE DAVID Cont.VTI: 3.25 LVOT LVOT Pk Parker: 0.91 LVOT Mn Parker: 0.58 LVOT VTI: 0.21 LVOT Pk Grad: 3.00 LVOT Mn Grad: 2.00 LVOT Diam: 2.30 LVOT Area: 4.15 Diastolic Function MV Pk E: 0.75 MV Pk A: 0.84 E/A: 0.90 E'Medial: 6.85 E/E' Med: 11.00 E' Laterial: 8.16 E/E' Lat: 9.20 Right Ventricle TAPSE (mm): 30.00 TVS' Parker: 13.00 Tricuspid Valve TR Pk Parker: 2.51 TR Pk Grad: 25.00 RA Press: 3.00 RVSP: 28.00 Great Vessels Aorta Ao Root-2D: 3.70 2.0-3.7 cm Ao Asc: 3.50 2.1-3.4 cm Pulmonary Valve PV Pk Parker: 0.87 Peak PV Grad: 3.00 Updated in Other Vendor System with Status of Final Vinnie Rios MD electronically signed on 12/02/2023 11:26:50 AM with status of Final
[2023-12-02 07:18] LABS: Basophils Absolute Auto 0.1 X10*3/uL (0.0-0.2); Basophils Percent Auto 0.2 % (0-2); Hematocrit 30.9 % (42.0-52.0); Hemoglobin 10.5 g/dl (14.0-18.0); Imm Gran Abs Auto 0.41 X10*3/uL (0.00-0.03); Imm Gran Pct Auto 1.9 % (0.0-0.4); Lymphocytes Absolute Auto 0.3 X10*3/uL (1.2-4.9); Lymphocytes Percent Auto 1.2 % (20-40); MANUAL DIFF FLAG SCAN; Mean Corpuscular Hemoglobin 31.6 pg (27.0-33.0); Mean Corpuscular Volume 93.1 fL (80.0-98.0); Mean Platelet Volume 11.8 fL (9.4-12.4); Monocytes Absolute Auto 0.3 X10*3/uL (0.1-1.2); Monocytes Percent Auto 1.3 % (2-11); Neutrophils Absolute Auto 20.8 x10*3/uL (2.0-8.3); Neutrophils Percent Auto 95.4 % (45-73); Platelet Count 140 X10*3/uL (160-400); Red Blood Count 3.32 X10*6/uL (4.60-5.80); Red Cell Distribution Width 14.7 % (11.0-16.0); SCAN SMEAR FLAG 1; White Blood Count 21.8 X10*3/uL (4.8-10.8)
[2023-12-02 07:27] LABS: Anion Gap 9 (12-20); Blood Urea Nitrogen 35 mg/dL (9-16); Carbon Dioxide 27 mmol/L (22-29); Chloride 106 mmol/L (96-108); Creatinine Clr Calc Pharmacy 67.5; Estimated Glomerular Filt Rate > 60; Glucose Random 266 mg/dL (60-115); Sodium 138 mmol/L (135-145)
[2023-12-02 07:45] LABS: Creatinine Clr Calc Pharmacy 60.4; Estimated Glomerular Filt Rate > 60
[2023-12-02] MEDS: Albuterol/Iprat 2.5/0.5MG 3 ML AMPUL.NEB INHALE ×4 (07:51→19:55)
[2023-12-02] MEDS: Fluticasone/Vilanterol 200/25 BLST.W.DEV 1 PUFF INHALE (07:51)
[2023-12-02] MEDS: Apixaban 5 MG TABLET PO ×2 (08:24→20:57)
[2023-12-02] MEDS: Cyanocobalamin (Vitamin B-12) 1,000 MCG TABLET 1000 MCG PO (08:24)
[2023-12-02] MEDS: Metoprolol Tartrate 12.5 MG HALFTAB PO ×2 (08:24→20:57)
[2023-12-02] MEDS: Clopidogrel Bisulfate 75 MG TABLET PO (08:24)
[2023-12-02] MEDS: Sertraline HCL 100 MG TABLET PO (08:24)
[2023-12-02] MEDS: Sertraline HCL 50 MG TABLET PO (08:24)
[2023-12-02] MEDS: Famotidine 20 MG TABLET PO (08:24)
[2023-12-02] MEDS: Atorvastatin Calcium 80 MG TABLET PO (08:24)
[2023-12-02] MEDS: 0.9 % Sodium Chloride Flush 3 ML SYRINGE IVFLUSH ×2 (08:25→23:38)
--- NOTE | 2023-12-02 09:02 | PHA.PROG ---
Admission Date/Time: December 01, 2023 18:04 Indication: bacteremia Weight in k kg Serum Creatinine - Last 168 Hours 12/01/23 12/02/23 12/02/23 13:46 06:45 07:18 Creatinine 0.82 0.68 0.76 Estimated CrCl and GFR - Last 168 Hours 12/01/23 12/02/23 12/02/23 13:46 06:45 07:18 Estim Creat Clear Calc 57.4 67.5 60.4 Estimated GFR > 60 > 60 > 60 Vancomycin Loading Dose: 1500 Current Vancomycin Dosing Regimen: 1250 q 24h Vancomycin Monitoring using AUC goal of 400 - 600 range with trough as surrogate marker: 487 mg/L hr Date and Time for next Vancomycin Level to be drawn: 12/02 @ 2100 Pharmacist Comments on Vancomycin Plan: Vancomycin dosing will take advantage of [employer] as a clinical decision support tool that uses Bayesian modeling to calculate individual patient's pharmacokinetic parameters and forecast the patient's drug concentration time course with the target goal AUC 24 range of 400 - 600 mg/L/hr.
[2023-12-02 09:06] LABS: SLIDE REVIEW VERIFIED
--- NOTE | 2023-12-02 10:25 | P.CONCA_ITS ---
History of Present Illness History of Present Illness Date of Service: 12/02/23 Chief complaint: afib rvr, pneumonia/sepsis/hypoxia, embolic cva Narrative: This is a cardiology consultation regarding atrial fibrillation. There is mention of atrial fibrillation in prior history but not entirely clear if it is accurate or not. Any case, not on anticoagulation. History of coronary disease, peripheral vascular disease among others. Current admission is because of sensation of generalized weakness, shortness of breath and palpitations for the last several days. He also had influenza few days before and had Tamiflu. Per EMS notes as well as admission documentation, apparently atrial fibrillation with rates in the 160s but then got IV fluids which improved to the 120s. He was also hypoxic. Then it seems he got IV digoxin, IV antibiotics, fluids and then admitted with a diagnosis of pneumonia/sepsis/atrial fibrillation. Currently, he states that he feels fine. And the time of arrival, he probably had some palpitations but somewhat vague about it. He does not have any other symptoms like angina. Review of Systems 2 Review of Systems: Yes all other systems are reviewed and are negative Constitutional: Constitutional: Reports as per HPI and Reports no additional constitutional complaints Eyes: Eyes: Reports as per HPI and Denies no additional eye complaints ENT: Denies system reviewed and no additional complaints, except as documented and Reports as per HPI Cardiovascular: Cardiovascular: Reports as per HPI, Reports no additional cardiovascular complaints, Denies acrocyanosis, Denies cool extremities, Denies chest pain, Denies leg edema, Denies lightheadedness, Denies palpitations and Denies dyspnea Respiratory: Respiratory: Reports as per HPI, Denies no additional respiratory complaints and Denies dyspnea Gastrointestinal: Gastrointestinal: Reports as per HPI and Denies no additional gastrointestinal complaints Genitourinary: Genitourinary: Reports no additional male genitourinary complaints and Reports as per HPI Musculoskeletal: Musculoskeletal: Reports no additional musculoskeletal complaints and Reports as per HPI Integumentary/Breasts: Skin/Breast: Reports system reviewed and no additional complaints, except as docu Neurologic: Reports system reviewed and no additional complaints, except as documented and Reports as per HPI Psychiatric: Psychiatric: Reports no additional psychiatric complaints and Reports as per HPI Endocrine: Endocrine: Reports no additional endocrine complaints, Reports as per HPI and Denies palpitations Hematologic/Lymphatic: Hematologic/Lymphatic: Reports no additional hematologic/lymphatic complaints and Reports as per HPI Allergic/Immunologic: Allergic/Immunologic: Reports no additional allergic/immunologic complaints and Reports as per HPI [facility] Past Medical History Medical History (Updated 12/02/23 @ 10:29 by Vinnie Rios MD) Former smoker CAD (coronary artery disease) History of prostate cancer Mood disorder GERD (gastroesophageal reflux disease) PAD (peripheral artery disease) Atrial fibrillation COPD (chronic obstructive pulmonary disease) FHx: cholecystectomy Family History Pertinent family history: No pertinent family history. Surgical History Surgical History Status post radiation therapy History of appendectomy S/P trigger finger release H/O angioplasty Social History Social History Household Members: None Housing: Apartment Do you presently have visiting nurse or other home services: No Unable to assess alcohol history related to: Unknown Alcohol intake: never Patient Tobacco Use Status: Former Tobacco user Tobacco use type: Cigarette e-Cigarette/Vaping Use: Never Used Second Hand Smoke Exposure: No Substance Use Type: Prescription Drugs Advance Directives Date on File: 12/01/23 Current occupational status: disabled Current occupation: Rt handed Meds Allergies Allergy/AdvReac Type Severity Reaction Status Date / Time levofloxacin [From LEVAQUIN] Allergy Unknown HIVES Verified 12/01/23 12:51 lidocaine [LIDOCAINE] AdvReac Unknown IV Verified 12/01/23 12:51 SENSITIVE nitroglycerin AdvReac BP Drop Verified 12/01/23 12:51 tamsulosin AdvReac BP Drop Verified 12/01/23 12:51 Active Medications: Current Medications Acetaminophen (Acetaminophen 325 Mg Tablet) 650 mg PO Q6H PRN PRN Reason: Pain, Mild (Pain Scale 1-3) Albuterol Sulfate (Albuterol Sulfate 90 Mcg 8 Gm Inhaler) 2 puff INHALE Q4H PRN PRN Reason: Shortness Of Breath Or Wheezing Albuterol/Ipratropium (Albuterol/Iprat 2.5/0.5mg 3 Ml Ampul.Neb) 3 ml INHALE RQ4H WHILE AWAKE [facility] Last Admin: 12/02/23 07:51 Dose: 3 ml Apixaban (Apixaban 5 Mg Tablet) 5 mg PO BID [facility] Last Admin: 12/02/23 08:24 Dose: 5 mg Atorvastatin Calcium (Atorvastatin Calcium 80 Mg Tablet) 80 mg PO DAILY [facility] Last Admin: 12/02/23 08:24 Dose: 80 mg Clopidogrel Bisulfate (Clopidogrel Bisulfate 75 Mg Tablet) 75 mg PO DAILY [facility] Last Admin: 12/02/23 08:24 Dose: 75 mg Cyanocobalamin (Cyanocobalamin (Vitamin B-12) 1,000 Mcg Tablet) 1,000 mcg PO DAILY [facility] Last Admin: 12/02/23 08:24 Dose: 1,000 mcg Enalapril Maleate (Enalapril Maleate 5 Mg Tablet) 5 mg PO BID [facility]; Protocol Last Admin: 12/02/23 08:24 Dose: 5 mg Famotidine (Famotidine 20 Mg Tablet) 20 mg PO DAILY [facility] Last Admin: 12/02/23 08:24 Dose: 20 mg Fluticasone/Vilanterol (Fluticasone/Vilanterol 200/25 Blst.W.Dev) 1 puff INHALE RDAILY [facility] Last Admin: 12/02/23 07:51 Dose: 1 puff Vancomycin HCl 1,250 mg/ (Sodium Chloride) 250 mls @ 166.667 mls/hr IV Q24H [facility] Melatonin (Melatonin 3 Mg Tablet) 3 mg PO BEDTIME PRN PRN Reason: Insomnia Metoprolol Tartrate (Metoprolol Tartrate 12.5 Mg Halftab) 12.5 mg PO BID [facility]; Protocol Last Admin: 12/02/23 08:24 Dose: 12.5 mg Ondansetron HCl (Ondansetron Hcl 4 Mg/2 Ml Vial) 4 mg IVPUSH Q8H PRN PRN Reason: Nausea and Vomiting Pharmacy Consult (Consult Rx Vancomycin Dosing) 1 each MISCELLANE DAILY PRN PRN Reason: Consult order Senna (Sennosides 8.6 Mg Tablet) 17.2 mg PO BEDTIME PRN PRN Reason: Constipation Sertraline HCl (Sertraline Hcl 50 Mg Tablet) 50 mg PO DAILY [facility] Last Admin: 12/02/23 08:24 Dose: 50 mg Sertraline HCl (Sertraline Hcl 100 Mg Tablet) 100 mg PO DAILY [facility] Last Admin: 12/02/23 08:24 Dose: 100 mg Sodium Chloride (0.9 % Sodium Chloride Flush 3 Ml Syringe) 3 ml IVFLUSH QSHIFT [facility] Last Admin: 12/02/23 08:25 Dose: 3 ml Home Medications ?Medication ?Instructions ?Recorded ?Confirmed ?Last Taken ?Type acetaminophen 650 mg 650 mg PO Q8H PRN Moderate Pain 08/28/21 12/01/23 Unknown History tablet,extended release (Tylenol (Scale Score 5-6) Arthritis Pain) atorvastatin 80 mg tablet (Lipitor) 80 mg PO DAILY 08/28/21 12/01/23 Unknown History clopidogrel 75 mg tablet (Plavix) 75 mg PO DAILY 08/28/21 12/01/23 Unknown History famotidine 20 mg tablet 20 mg PO DAILY 08/28/21 12/01/23 Unknown History melatonin 3 mg capsule 3 mg PO BEDTIME PRN Insomnia 08/28/21 12/01/23 Unknown History sertraline 100 mg tablet 100 mg PO DAILY 08/28/21 12/01/23 Unknown History albuterol sulfate 90 mcg/actuation 2 puff inhalation Q4H PRN 11/26/23 12/01/23 Unknown History aerosol inhaler (Ventolin HFA) Shortness Of Breath Or Wheezing enalapril maleate 5 mg tablet 5 mg PO BID 11/26/23 12/01/23 Unknown History fluticasone furoate 200 1 ea inhalation DAILY 11/26/23 12/01/23 Unknown History mcg-vilanterol 25 mcg/dose inhalation powder (Breo Ellipta) cyanocobalamin (vitamin B-12) 1,000 mcg PO DAILY 12/01/23 12/01/23 Unknown History 1,000 mcg tablet sertraline 50 mg tablet 50 mg PO DAILY 12/01/23 12/01/23 Unknown History Physical Exam 2 Vital Signs: Vital Signs: Last Vital Signs Temp 97.7 F 12/02/23 07:13 Pulse 105 H 12/02/23 07:55 Resp 18 12/02/23 07:55 BP 140/78 H 12/02/23 07:13 Pulse Ox 96 12/02/23 07:13 O2 Del Method Nasal Cannula 12/02/23 07:13 O2 Flow Rate 2 12/02/23 07:13 Oxygen Flow Rate 2 12/01/23 12:29 BMI result Body Mass Index 19.1 Const: General: comfortable and no acute distress O rientation/consciousness: patient oriented x3 HEENT: Other: Unremarkable Head: Yes normal to inspection Neck: Neck: Yes normal visual inspection Chest: Chest palpation & inspection: normal inspection of the chest Resp: Auscultation: clear to auscultation bilaterally Cardio: Palpation: normal PMI Heart sounds: S1 normal heart sound present, S2 normal heart sound present, no gallops, no murmurs and no rubs GI: Palpation (GI): Soft to palpation Back/Spine/Pelvis: Other: unremarkable Skin: General skin exam: no rashes or lesions noted Neuro: General: patient oriented x3 Extrem: General: Yes normal to inspection Psych: Mental Status: mental status grossly normal Objective Labs and Meds 12/02/23 06:45 12/02/23 07:18 Lab results: Laboratory Results - last 24 hr 12/01/23 12/01/23 12/01/23 13:46 16:28 23:07 WBC 18.4 H RBC 3.55 L Hgb 11.0 L Hct 33.1 L MCV 93.2 MCH 31.0 MCHC 33.2 RDW 14.6 Plt Count 147 L D MPV 11.2 Immature Gran % (Auto) 2.0 H Neut % (Auto) 94.5 H Lymph % (Auto) 1.1 L [place] % (Auto) 1.6 L Eos % (Auto) 0.4 Baso % (Auto) 0.4 Lymph # (Auto) 0.2 L [place] # (Auto) 0.3 Eos # (Auto) 0.1 Baso # (Auto) 0.1 Abs Immat Gran (auto) 0.36 H Absolute Neuts (auto) 17.4 H Absolute Nucleated RBC 0.000 Nucleated RBC % (auto) 0.0 Smear Tech's Comments VERIFIED Hold Purple Top Sodium 140 Potassium 3.4 Chloride 105 Carbon Dioxide 27 Anion Gap 11 L BUN 41 H Creatinine 0.82 Estim Creat Clear Calc 57.4 Estimated GFR > 60 Random Glucose 202 H Lactic Acid 1.7 Calcium 8.8 D Total Bilirubin 0.8 Direct Bilirubin 0.5 AST 39 H ALT 25 Alkaline Phosphatase 72 Troponin I High Sens 49.1 H D 43.0 H B-Natriuretic Peptide 264 H Total Protein 5.3 L Albumin 2.4 L Triglycerides 114 Cholesterol 83 LDL Cholesterol, Calc 52 HDL Cholesterol 9 L Lipase 21 Urine Color Dark Yellow Urine Appearance Clear Urine pH 6.5 Ur Specific [place] >= 1.030 H Urine Protein 30 (1+) H Urine Glucose (UA) 100 H Urine Ketones Negative Urine Blood Negative Urine Nitrite Negative Ur Leukocyte Esterase Negative Urine RBC 0-2 Urine WBC 0-5 Ur Squamous Epith Cells 3-5 Urine Bacteria None Seen Hyaline Casts 3-5 Influenza Type A (PCR) NEGATIVE Influenza Type B (PCR) NEGATIVE RSV RNA Qual (PCR) NEGATIVE SARS-CoV-2 RNA (RT-PCR) NEGATIVE 12/02/23 12/02/23 06:45 07:18 WBC 21.8 H RBC 3.32 L Hgb 10.5 L Hct 30.9 L MCV 93.1 MCH 31.6 MCHC 34.0 RDW 14.7 Plt Count 140 L MPV 11.8 Immature Gran % (Auto) 1.9 H Neut % (Auto) 95.4 H Lymph % (Auto) 1.2 L [place] % (Auto) 1.3 L Eos % (Auto) 0.0 Baso % (Auto) 0.2 Lymph # (Auto) 0.3 L [place] # (Auto) 0.3 Eos # (Auto) 0.0 Baso # (Auto) 0.1 Abs Immat Gran (auto) 0.41 H Absolute Neuts (auto) 20.8 H Absolute Nucleated RBC 0.000 Nucleated RBC % (auto) 0.0 Smear Tech's Comments VERIFIED Hold Purple Top SEE NOTE Sodium 138 Potassium 4.0 Chloride 106 Carbon Dioxide 27 Anion Gap 9 L BUN 35 H Creatinine 0.68 0.76 Estim Creat Clear Calc 67.5 60.4 Estimated GFR > 60 > 60 Random Glucose 266 H Lactic Acid Calcium 9.0 Total Bilirubin Direct Bilirubin AST ALT Alkaline Phosphatase Troponin I High Sens B-Natriuretic Peptide Total Protein Albumin Triglycerides Cholesterol LDL Cholesterol, Calc HDL Cholesterol Lipase Urine Color Urine Appearance Urine pH Ur Specific [place] Urine Protein Urine Glucose (UA) Urine Ketones Urine Blood Urine Nitrite Ur Leukocyte Esterase Urine RBC Urine WBC Ur Squamous Epith Cells Urine Bacteria Hyaline Casts Influenza Type A (PCR) Influenza Type B (PCR) RSV RNA Qual (PCR) SARS-CoV-2 RNA (RT-PCR) ECG Interpretation: In the initial EKG, narrow complex tachycardia at a rate of 153/Min. Rhythm could be either sinus tachycardia with frequent PACs/atrial tachycardia. Less likely atrial fibrillation as it is some suggestion of P waves. Possible old anterior infarct. Imaging Radiologist's impression: Impressions Chest X-Ray 12/01/23 13:10 IMPRESSION: 1. New left basilar focal consolidation is concerning for atelectasis and/or pneumonia. Small left pleural effusion. 2. Redemonstration of previously identified diffuse fibrotic change. This study was presented today, December 01, 2023, for interpretation. Stat results provided at this time as requested by referring provider. Head/Neck CTA 12/01/23 16:09 IMPRESSION: Within the limitations of this study, -CT head demonstrates no acute intracranial hemorrhage or edematous infarct. -CTA head demonstrates moderate to severe focal stenosis of the proximal right M2 superior branch. No other sites of large vessel occlusion, saccular aneurysm or dissection. -CTA neck demonstrates poor evaluation of the right vertebral artery origin which appears occluded to this is favored to be artifactual. Otherwise, no hemodynamically significant stenosis, dissection, or aneurysm. Incidentally noted multifocal spiculated nodular opacities in the bilateral lungs. Recommend further evaluation with dedicated CT chest if clinically warranted. Assessment and Plan (1) Atrial arrhythmia: Status: Acute (2) Atrial tachycardia: Status: Acute (3) CAD (coronary artery disease): Status: Acute (4) Pneumonia: Status: Acute (5) Sepsis: Status: Acute (6) Influenza A: Status: Acute Plan Cardiology documentation from [facility] reviewed. History of CAD/prior PCI, RCA + elsewhere?; peripheral arterial disease; renal artery stenosis status post right renal stent; with many comorbidities. Frequent PACs mentioned and runs of PSVT but there is no mention of atrial fibrillation. At the current time, rhythm could be just atrial tachycardia or sinus tachycardia with frequent PACs and less likely atrial fibrillation. On telemetry, he is in sinus rhythm with PACs and there is no evidence of atrial fibrillation. Recommend just monitoring him on telemetry. The tachycardic episode could be because of acute medical illness. If recurrent, consider small dose of diltiazem or beta-blockers. Troponin levels are borderline which could be demand related. Otherwise, treat the primary medical issue with antibiotics and we can follow. Echocardiogram from [id number] of 60-65%; no wall motion abnormalities; normal diastolic function; no significant valvular issues. Normal atrial size. Holter from [facility] 2022-normal sinus rhythm with an average rate of 71/Min. Frequent PACs with a burden of 6%. Atrial couplets, triplets, runs of PSVT- longest 14 beats. Rare PVCs. No high-grade heart block. Discussed with Dr. Hyatt. Procedures Date of Service Date of Service: 12/02/23
--- NOTE | 2023-12-02 12:58 | PM.NEUROCN ---
History of Present Illness Data of Consult Service Date: 12/02/23 Primary Care Provider: Ijeoma Whaley MD [facility] Reason for consult: Transient speech difficulty 83 year old male with history of paroxysmal atrial fibrillation not on anticoagulants, HBP, COPD, PAD on plavix, hx of prostate ca s/p radiation, CAD, GERD presents to the ED for evaluation of generalized weakness, dyspnea, and palpitations ongoing several days. He was recently diagnosed with influenza A 6 days ago and completed tamiflu, but has had worsening of the above symptoms. No fevers or chills. He had a period of 30 minutes where he experienced word finding difficulty and confusion that resolved spontaneously. He denies focal weakness, paresthesias, slurred speech, facial droop, gait imbalance. He was found to be in AFib with rate 160 improved to 1 20s with IV fluids. Was also hypoxic to 86% and placed on 4 L via OxyMask. During examination was also witnessed to drop to 88% despite 4 L with any movement or when talking. MRI brain shows no acute stroke. CTA neck is unremarkable and CTA head shows right M2 stenosis of moderate to severe degree. Review of Systems Review of Systems: General: No fevers, malaise, unintentional weight loss. +general weakness HEENT: No blurred vision, diplopia. No sore throat, nasal congestion, rhinorrhea, sinus pain, ear pain Cardiovascular: +palpitations. No chest pain or leg edema Respiratory: +sob, +cough, +chest congestion. No wheezing GI: No abdominal pain, nausea, vomiting, diarrhea, constipation, melena, hematochezia : No dysuria, hematuria, increased urinary frequency, decreased urinary output MSK: No myalgia, back pain Neuro: +word finding difficulty, +confusion. No headaches, weakness, paresthesias Skin: No rashes or lesions Yes all other systems are reviewed and are negative Constitutional: Constitutional: Reports as per HPI and Reports no additional constitutional complaints Eyes: Eyes: Reports as per HPI and Denies no additional eye complaints ENT: Denies system reviewed and no additional complaints, except as documented and Reports as per HPI Cardiovascular: Cardiovascular: Reports as per HPI, Reports no additional cardiovascular complaints, Denies acrocyanosis, Denies cool extremities, Denies chest pain, Denies leg edema, Denies lightheadedness, Denies palpitations and Denies dyspnea Respiratory: Respiratory: Reports as per HPI, Denies no additional respiratory complaints and Denies dyspnea Gastrointestinal: Gastrointestinal: Reports as per HPI and Denies no additional gastrointestinal complaints Genitourinary: Genitourinary: Reports no additional male genitourinary complaints and Reports as per HPI Musculoskeletal: Musculoskeletal: Reports no additional musculoskeletal complaints and Reports as per HPI Integumentary/Breasts: Skin/Breast: Reports system reviewed and no additional complaints, except as docu Neurologic: Reports system reviewed and no additional complaints, except as documented and Reports as per HPI Psychiatric: Psychiatric: Reports no additional psychiatric complaints and Reports as per HPI Endocrine: Endocrine: Reports no additional endocrine complaints, Reports as per HPI and Denies palpitations Hematologic/Lymphatic: Hematologic/Lymphatic: Reports no additional hematologic/lymphatic complaints and Reports as per HPI Allergic/Immunologic: Allergic/Immunologic: Reports no additional allergic/immunologic complaints and Reports as per HPI PMFSH Past Medical History Medical History (Updated 12/02/23 @ 10:29 by Vinnie Rios MD) Former smoker CAD (coronary artery disease) History of prostate cancer Mood disorder GERD (gastroesophageal reflux disease) PAD (peripheral artery disease) Atrial fibrillation COPD (chronic obstructive pulmonary disease) FHx: cholecystectomy Family History Pertinent family history: No pertinent family history. Surgical History Surgical History Status post radiation therapy History of appendectomy S/P trigger finger release H/O angioplasty Social History Social History Household Members: None Housing: Apartment Do you presently have visiting nurse or other home services: No Unable to assess alcohol history related to: Unknown Alcohol intake: never Patient Tobacco Use Status: Former Tobacco user Tobacco use type: Cigarette e-Cigarette/Vaping Use: Never Used Second Hand Smoke Exposure: No Substance Use Type: Prescription Drugs Advance Directives Date on File: 12/01/23 Current occupational status: disabled Current occupation: Rt handed Meds Allergies Allergy/AdvReac Type Severity Reaction Status Date / Time levofloxacin [From LEVAQUIN] Allergy Unknown HIVES Verified 12/01/23 12:51 lidocaine [LIDOCAINE] AdvReac Unknown IV Verified 12/01/23 12:51 SENSITIVE nitroglycerin AdvReac BP Drop Verified 12/01/23 12:51 tamsulosin AdvReac BP Drop Verified 12/01/23 12:51 Active Medications: Current Medications Acetaminophen (Acetaminophen 325 Mg Tablet) 650 mg PO Q6H PRN PRN Reason: Pain, Mild (Pain Scale 1-3) Albuterol Sulfate (Albuterol Sulfate 90 Mcg 8 Gm Inhaler) 2 puff INHALE Q4H PRN PRN Reason: Shortness Of Breath Or Wheezing Albuterol/Ipratropium (Albuterol/Iprat 2.5/0.5mg 3 Ml Ampul.Neb) 3 ml INHALE RQ4H WHILE AWAKE [facility] Last Admin: 12/02/23 12:16 Dose: 3 ml Apixaban (Apixaban 5 Mg Tablet) 5 mg PO BID [facility] Last Admin: 12/02/23 08:24 Dose: 5 mg Atorvastatin Calcium (Atorvastatin Calcium 80 Mg Tablet) 80 mg PO DAILY [facility] Last Admin: 12/02/23 08:24 Dose: 80 mg Clopidogrel Bisulfate (Clopidogrel Bisulfate 75 Mg Tablet) 75 mg PO DAILY [facility] Last Admin: 12/02/23 08:24 Dose: 75 mg Cyanocobalamin (Cyanocobalamin (Vitamin B-12) 1,000 Mcg Tablet) 1,000 mcg PO DAILY [facility] Last Admin: 12/02/23 08:24 Dose: 1,000 mcg Enalapril Maleate (Enalapril Maleate 5 Mg Tablet) 5 mg PO BID [facility]; Protocol Last Admin: 12/02/23 08:24 Dose: 5 mg Famotidine (Famotidine 20 Mg Tablet) 20 mg PO DAILY [facility] Last Admin: 12/02/23 08:24 Dose: 20 mg Fluticasone/Vilanterol (Fluticasone/Vilanterol 200/25 Blst.W.Dev) 1 puff INHALE RDAILY [facility] Last Admin: 12/02/23 07:51 Dose: 1 puff Vancomycin HCl 1,250 mg/ (Sodium Chloride) 250 mls @ 166.667 mls/hr IV Q24H [facility] Melatonin (Melatonin 3 Mg Tablet) 3 mg PO BEDTIME PRN PRN Reason: Insomnia Metoprolol Tartrate (Metoprolol Tartrate 12.5 Mg Halftab) 12.5 mg PO BID [facility]; Protocol Last Admin: 12/02/23 08:24 Dose: 12.5 mg Ondansetron HCl (Ondansetron Hcl 4 Mg/2 Ml Vial) 4 mg IVPUSH Q8H PRN PRN Reason: Nausea and Vomiting Pharmacy Consult (Consult Rx Vancomycin Dosing) 1 each MISCELLANE DAILY PRN PRN Reason: Consult order Senna (Sennosides 8.6 Mg Tablet) 17.2 mg PO BEDTIME PRN PRN Reason: Constipation Sertraline HCl (Sertraline Hcl 50 Mg Tablet) 50 mg PO DAILY [facility] Last Admin: 12/02/23 08:24 Dose: 50 mg Sertraline HCl (Sertraline Hcl 100 Mg Tablet) 100 mg PO DAILY [facility] Last Admin: 12/02/23 08:24 Dose: 100 mg Sodium Chloride (0.9 % Sodium Chloride Flush 3 Ml Syringe) 3 ml IVFLUSH QSHIFT [facility] Last Admin: 12/02/23 08:25 Dose: 3 ml Home Medications ?Medication ?Instructions ?Recorded ?Confirmed ?Last Taken ?Type acetaminophen 650 mg 650 mg PO Q8H PRN Moderate Pain 08/28/21 12/01/23 Unknown History tablet,extended release (Tylenol (Scale Score 5-6) Arthritis Pain) atorvastatin 80 mg tablet (Lipitor) 80 mg PO DAILY 08/28/21 12/01/23 Unknown History clopidogrel 75 mg tablet (Plavix) 75 mg PO DAILY 08/28/21 12/01/23 Unknown History famotidine 20 mg tablet 20 mg PO DAILY 08/28/21 12/01/23 Unknown History melatonin 3 mg capsule 3 mg PO BEDTIME PRN Insomnia 08/28/21 12/01/23 Unknown History sertraline 100 mg tablet 100 mg PO DAILY 08/28/21 12/01/23 Unknown History albuterol sulfate 90 mcg/actuation 2 puff inhalation Q4H PRN 11/26/23 12/01/23 Unknown History aerosol inhaler (Ventolin HFA) Shortness Of Breath Or Wheezing enalapril maleate 5 mg tablet 5 mg PO BID 11/26/23 12/01/23 Unknown History fluticasone furoate 200 1 ea inhalation DAILY 11/26/23 12/01/23 Unknown History mcg-vilanterol 25 mcg/dose inhalation powder (Breo Ellipta) cyanocobalamin (vitamin B-12) 1,000 mcg PO DAILY 12/01/23 12/01/23 Unknown History 1,000 mcg tablet sertraline 50 mg tablet 50 mg PO DAILY 12/01/23 12/01/23 Unknown History Physical Exam Vital Signs: Vital Signs: Last Vital Signs Temp 98.4 F 12/02/23 12:00 Pulse 82 12/02/23 12:16 Resp 16 12/02/23 12:16 BP 132/70 12/02/23 12:00 Pulse Ox 97 12/02/23 12:00 O2 Del Method Nasal Cannula 12/02/23 12:00 O2 Flow Rate 3 12/02/23 12:00 Oxygen Flow Rate 2 12/01/23 12:29 BMI result Body Mass Index 19.1 Const: General: comfortable and no acute distress Orientation/consciousness: patient oriented x3 HEENT: Other: Unremarkable Head: Yes normal to inspection Neck: Neck: Yes normal visual inspection Chest: Chest palpation & inspection: normal inspection of the chest Resp: Auscultation: clear to auscultation bilaterally Cardio: Palpation: normal PMI Heart sounds: S1 normal heart sound present, S2 normal heart sound present, no gallops, no murmurs and no rubs GI: Palpation (GI): Soft to palpation Back/Spine/Pelvis: Other: unremarkable Skin: General skin exam: no rashes or lesions noted Neuro: Other: Is alert and oriented x3. His speech is now normal, although he states that occasionally he has difficulty finding a word. Cranial nerves II through XII are normal. Muscle tone and strength are normal in all 4 extremities with a nonfocal exam. General: patient oriented x3 Extrem: General: Yes normal to inspection Psych: Mental Status: mental status grossly normal Results Labs 12/02/23 06:45 12/02/23 07:18 Labs: Short CBC 12/01/23 12/02/23 Range/Units 13:46 06:45 WBC 18.4 H 21.8 H (4.8-10.8) X10*3/uL Hgb 11.0 L 10.5 L (14.0-18.0) g/dl Hct 33.1 L 30.9 L (42.0-52.0) % Plt Count 147 L D 140 L (160-400) X10*3/uL BMP 12/01/23 12/02/23 12/02/23 13:46 06:45 07:18 Sodium 140 138 Potassium 3.4 4.0 Chloride 105 106 Carbon Dioxide 27 27 BUN 41 H 35 H Creatinine 0.82 0.68 0.76 Calcium 8.8 D 9.0 Liver Function 12/01/23 Range/Units 13:46 Total Bilirubin 0.8 (0.0-1.0) mg/dL Direct Bilirubin 0.5 (0.0-0.5) mg/dL AST 39 H (5-37) U/L ALT 25 (0-40) U/L Alkaline Phosphatase 72 (39-117) U/L Albumin 2.4 L (3.5-5.0) g/dL Urine 12/01/23 Range/Units 23:07 Urine Color Dark Yellow Urine Appearance Clear Urine pH 6.5 (5.0-9.0) Ur Specific [place] >= 1.030 H (1.005-1.025) Urine Protein 30 (1+) H (Neg-Trace) mg/dL Urine Glucose (UA) 100 H (Negative) mg/dL Microbiology Microbiology Results: Microbiology 12/01/23 13:46 Blood - Venous Blood Culture - Preliminary Gram positive cocci Assessment and Plan (1) Word finding difficulty: Status: Acute Transient word finding difficulties suggestive for possible TIA in the dominant hemisphere, but not definitive in view of his general illness, sepsis, and the lack of any other focal findings along with it. It, however, he remains a possibility. CTA does not show any significant carotid disease or intracranial disease in the left hemisphere. MRI shows no acute abnormalities. Recommendation continue clopidogrel 75 mg a day. I have personally reviewed his CTA and MRI films. (2) Atrial arrhythmia: Status: Acute (3) CAD (coronary artery disease): Status: Acute (4) Pneumonia: Status: Acute (5) Sepsis: Status: Acute Plan Cardiology documentation from [facility] reviewed. History of CAD/prior PCI, RCA + elsewhere?; peripheral arterial disease; renal artery stenosis status post right renal stent; with many comorbidities. Frequent PACs mentioned and runs of PSVT but there is no mention of atrial fibrillation. At the current time, rhythm could be just atrial tachycardia or sinus tachycardia with frequent PACs and less likely atrial fibrillation. On telemetry, he is in sinus rhythm with PACs and there is no evidence of atrial fibrillation. Recommend just monitoring him on telemetry. The tachycardic episode could be because of acute medical illness. If recurrent, consider small dose of diltiazem or beta-blockers. Troponin levels are borderline which could be demand related. Otherwise, treat the primary medical issue with antibiotics and we can follow. Echocardiogram from [id number] of 60-65%; no wall motion abnormalities; normal diastolic function; no significant valvular issues. Normal atrial size. Holter from [facility] 2022-normal sinus rhythm with an average rate of 71/Min. Frequent PACs with a burden of 6%. Atrial couplets, triplets, runs of PSVT-longest 14 beats. Rare PVCs. No high-grade heart block. Discussed with Dr. Hyatt. Procedures Date of Service Date of Service: 12/02/23
--- NOTE | 2023-12-02 13:07 | MHC.CM.PN ---
Addendum entered by Dionna Loja 12/02/23 15:04: Copy of HCP received from [facility], now on file. Pts Jamie is the primary HCP, and pts son Ihsan is the alternate HCP. Addendum entered by Dionna Loja 12/02/23 13:27: Phone call received from pts son Silvestre. Per Silvestre, the information given by pt was accurate and confirmed by Silvestre. Silvestre states he is in [place] and will be coming back on Thursday, and we can reach him on his Deidra's number if needed at [phone] while he is in [place], but his number is [phone]. Silvestre states that he believes his brother Aldo the 3rd is the HCP and he can be reached at [phone]. Additionally his mother Jamie who resides at the [facility] can be reached at [phone]. Original Note: IMM 12/01. Pt lives alone at home, states he is self-care, and uses a cane. Pt states his lives at [facility]. Pt states his and son are the HCP, but does not have a copy. Pt will need assistance with transportation at D/C. PT is recommending STR, this CM discussed with pt and he is agreeable to going to a local SNF, no preference in facility. This CM attempted to contact pts and son to confirm above information (as pt a bit forgetful), but none of the numbers listed were working or in service. PCP: Dr. Ijeoma Whaley
--- NOTE | 2023-12-02 13:13 | MHC.SL.SWA ---
Dysphasia Diet Status: NO CHANGE Liquid Consistency and Strategies for Safe Swallow: Liquid Intake Recommendation: Thin Liquid Intake Strategies: Small Sips Solid Food Consistency: Dietary Recommendations: Regular Oral Medication Intake: Whole with Liquid Please contact the pharmacy regarding appropriate crushable or liquid drug formulations that are available whenever modified delivery is recommended. Compensatory Strategies and Precautions to be Taken for Safe Swallow: Sitting Upright (90 deg) Small Bites and Sips Alternate Liquids/Solids Rate of Ingestion Change Avoid Specific Foods Supervision While Eating and Drinking for Safe Swallow: Total Supervision (1:1) Foods to Avoid: Avoid tough to chew foods Recommendation for Speech: Inpatient Speech Therapy Comment: Recommend continue w/ regular solids and thin liquids. Pills whole w/liquid. Recommend full supervision d/t reported concern for cough. Pt presented with intermittent cough, seemingly not directly related to swallow. [employer] to continue to follow to monitor toleration of diet and monitor/screen for potential word finding difficulties. Bread Jockey Clinican/Clinical Fellow: No Supervisory Statement: I have reviewed and agree with the student/clinical fellow's documentation: N/A Speech Language Pathologist: Ana Peterson M.A., CCC-[employer]
--- NOTE | 2023-12-02 15:17 | HO.WOUND ---
Wound Consult: Initial 83yr old Male admitted to [facility] [place] on 12/01/23 - See progress notes and H&P for detailed history.? Wound consult placed for redness to coccyx, POA.? Patient agreeable to assessment and photo documentation.? Patient reports occiasional incontinence and denies tenderness to buttocks / coccyx / sacral area. coccyx and Sacrum Etiology: ?MASD (Moisture Associated Skin Damage) Wound Bed: red moist blanchable intact tissue - dry epidermal layer noted over coccyx - remains intact Drainage / Odor: None Edges: irregular Fiona wound: ?Intact pink blanchable tissue - No Induration, Fluctuance or Warmth noted Pain: denies Goals of Treatment: ? Off load pressure - sacral foam dressing applied and waffle in recliner chair Recommendations: 1. Turn and Reposition every 2 hours and as needed for patient comfort.? Use pillows or wedges to support off loading positions. 2. Off Load all bony prominences with use of pillows and heel boots if needed.? Apply Preventative foams where needed. ? 3. Monitor for incontinence and moisture control, use barrier creams when needed for prevention and treatment. 4. Provide adequate and supplemental nutrition.? 5. Order low air loss mattress. 6. Coccyx - Apply Sacral foam dressing peel back and assess Q shift change every 3 days, PRN. Waffle cushion when up to chair. Re-consult wound care Nurse for wound deterioration or wound changes.
--- NOTE | 2023-12-02 15:36 | P.PNIM_ITS ---
Subjective Subjective Date of Service: 12/02/23 Interval History: No acute issues overnight. Still feels weak Review of Systems Denies chest pain Denies shortness of breath Denies nausea vomiting diarrhea Denies fever chills Physical Exam 2 Vital Signs: Vital Signs: Last Vital Signs Temp 98.4 F 12/02/23 12:00 Pulse 90 12/02/23 15:25 Resp 16 12/02/23 15:25 BP 132/70 12/02/23 12:00 Pulse Ox 97 12/02/23 12:00 O2 Del Method Nasal Cannula 12/02/23 12:00 O2 Flow Rate 3 12/02/23 12:00 Oxygen Flow Rate 2 12/01/23 12:29 BMI result Body Mass Index 19.1 Const: Other: Awake alert no acute distress Resp: Other: Clear to auscultation bilaterally no rales rhonchi or wheezes Cardio: Other: No S4; positive S1-S2; no S3 murmurs rubs or gallops GI: Other: Soft nontender nondistended normoactive bowel sounds Extrem: Other: No edema bilaterally Objective Data Active Medications Acetaminophen (Acetaminophen 325 Mg Tablet) 650 mg PO Q6H PRN PRN Reason: Pain, Mild (Pain Scale 1-3) Albuterol Sulfate (Albuterol Sulfate 90 Mcg 8 Gm Inhaler) 2 puff INHALE Q4H PRN PRN Reason: Shortness Of Breath Or Wheezing Albuterol/Ipratropium (Albuterol/Iprat 2.5/0.5mg 3 Ml Ampul.Neb) 3 ml INHALE RQ4H WHILE AWAKE [facility] Last Admin: 12/02/23 15:23 Dose: 3 ml Documented By: CHAN Apixaban (Apixaban 5 Mg Tablet) [address] [facility] Last Admin: 12/02/23 08:24 Dose: 5 mg Documented By: GIAN Atorvastatin Calcium (Atorvastatin Calcium 80 Mg Tablet) [address] [facility] Last Admin: 12/02/23 08:24 Dose: 80 mg Documented By: GIAN Clopidogrel Bisulfate (Clopidogrel Bisulfate 75 Mg Tablet) [address] [facility] Last Admin: 12/02/23 08:24 Dose: 75 mg Documented By: GIAN Cyanocobalamin (Cyanocobalamin (Vitamin B-12) 1,000 Mcg Tablet) 1,[address] [facility] Last Admin: 12/02/23 08:24 Dose: 1,000 mcg Documented By: GIAN Enalapril Maleate (Enalapril Maleate 5 Mg Tablet) [address] [facility]; Protocol Last Admin: 12/02/23 08:24 Dose: 5 mg Documented By: GIAN Famotidine (Famotidine 20 Mg Tablet) [address] [facility] Last Admin: 12/02/23 08:24 Dose: 20 mg Documented By: GIAN Fluticasone/Vilanterol (Fluticasone/Vilanterol 200/25 Blst.W.Dev) [address] [facility] Last Admin: 12/02/23 07:51 Dose: 1 puff Documented By: CHAN Vancomycin HCl 1,250 mg/ (Sodium Chloride) 250 mls @ 166.667 mls/hr IV Q24H [facility] Melatonin (Melatonin 3 Mg Tablet) 3 mg PO BEDTIME PRN PRN Reason: Insomnia Metoprolol Tartrate (Metoprolol Tartrate 12.5 Mg Halftab) 12.[address] [facility]; Protocol Last Admin: 12/02/23 08:24 Dose: 12.5 mg Documented By: GIAN Ondansetron HCl (Ondansetron Hcl 4 Mg/2 Ml Vial) 4 mg IVPUSH Q8H PRN PRN Reason: Nausea and Vomiting Pharmacy Consult (Consult Rx Vancomycin Dosing) 1 each MISCELLANE DAILY PRN PRN Reason: Consult order Senna (Sennosides 8.6 Mg Tablet) 17.2 mg PO BEDTIME PRN PRN Reason: Constipation Sertraline HCl (Sertraline Hcl 50 Mg Tablet) [address] [facility] Last Admin: 12/02/23 08:24 Dose: 50 mg Documented By: GIAN Sertraline HCl (Sertraline Hcl 100 Mg Tablet) [address] [facility] Last Admin: 12/02/23 08:24 Dose: 100 mg Documented By: GIAN Sodium Chloride (0.9 % Sodium Chloride Flush 3 Ml Syringe) [address] [facility] Last Admin: 12/02/23 15:25 Dose: Not Given Documented By: JARON Non-Admin Reason: Previously Administered Labs 12/02/23 06:45 12/02/23 07:18 Labs: Laboratory Results - last 24 hr 12/01/23 12/01/23 12/01/23 13:46 16:28 23:07 MCV MCH MCHC RDW Plt Count MPV Immature Gran % (Auto) Neut % (Auto) Lymph % (Auto) [place] % (Auto) Eos % (Auto) Baso % (Auto) Lymph # (Auto) [place] # (Auto) Eos # (Auto) Baso # (Auto) Abs Immat Gran (auto) Absolute Neuts (auto) Absolute Nucleated RBC Nucleated RBC % (auto) Smear Tech's Comments Hold Purple Top Anion Gap Estim Creat Clear Calc Estimated GFR Random Glucose Calcium Troponin I High Sens 43.0 H Triglycerides 114 Cholesterol 83 LDL Cholesterol, Calc 52 HDL Cholesterol 9 L Urine Color Dark Yellow Urine Appearance Clear Urine pH 6.5 Ur Specific [place] >= 1.030 H Urine Protein 30 (1+) H Urine Glucose (UA) 100 H Urine Ketones Negative Urine Blood Negative Urine Nitrite Negative Ur Leukocyte Esterase Negative Urine RBC 0-2 Urine WBC 0-5 Ur Squamous Epith Cells 3-5 Urine Bacteria None Seen Hyaline Casts 3-5 12/02/23 12/02/23 06:45 07:18 MCV 93.1 MCH 31.6 MCHC 34.0 RDW 14.7 Plt Count 140 L MPV 11.8 Immature Gran % (Auto) 1.9 H Neut % (Auto) 95.4 H Lymph % (Auto) 1.2 L [place] % (Auto) 1.3 L Eos % (Auto) 0.0 Baso % (Auto) 0.2 Lymph # (Auto) 0.3 L [place] # (Auto) 0.3 Eos # (Auto) 0.0 Baso # (Auto) 0.1 Abs Immat Gran (auto) 0.41 H Absolute Neuts (auto) 20.8 H Absolute Nucleated RBC 0.000 Nucleated RBC % (auto) 0.0 Smear Tech's Comments VERIFIED Hold Purple Top SEE NOTE Anion Gap 9 L Estim Creat Clear Calc 67.5 60.4 Estimated GFR > 60 > 60 Random Glucose 266 H Calcium 9.0 Troponin I High Sens Triglycerides Cholesterol LDL Cholesterol, Calc HDL Cholesterol Urine Color Urine Appearance Urine pH Ur Specific [place] Urine Protein Urine Glucose (UA) Urine Ketones Urine Blood Urine Nitrite Ur Leukocyte Esterase Urine RBC Urine WBC Ur Squamous Epith Cells Urine Bacteria Hyaline Casts Microbiology Microbiology Results: Microbiology 12/01/23 13:46 Blood Culture - Preliminary Blood - Venous Gram positive cocci Assessment and Plan (1) Atrial fibrillation with RVR: Status: Acute (2) Pneumonia: Status: Acute (3) CAD (coronary artery disease): Status: Acute Plan 83 year old male with history of paroxysmal atrial fibrillation not on ac, htn, copd, PAD on plavix, hx of prostate ca s/p radiation, CAD, GERD admitted for further management of acute LLL pneumonia with sepsis and acute hypoxemic respiratory failure and atrial fibrillation with RVR. 1.Paroxysmal atrial fibrillation with rvr- rate controlled on admission -eliquis 5mg BID -metoprolol 12.5 mg bid.. Adjust dose as indicated -LVEF 48% with basilar and mid inferior segments hypokinetic 2.Acute hypoxemic respiratory failure/bacterial pneumonia with sepsis(resolved) -diagnosed with influenza 6 days ago completed Tamiflu. Negative for COVID-19, influenza, RSV today -ceftriaxone/azithromycin (2) -duoNebs q.4h while awake -supplemental O2 to maintain oximetry 90-92% 3.Word finding difficulty/confusion- ?TIA -no focal neuro deficits on admission -Head CT/CTA head neck shows moderate to severe stenosis of the proximal right M2 superior branch but no other sites of large vessel occlusion, saccular aneurysm, or dissection. Also occlusion of the right vertebral artery origin but this is more likely artifactual. -neuro input appreciated. .. We will continue Plavix 4.COPD -no acute exacerbation -continue maintenance inhalers, albuterol p.r.n. 5.Hypertension -acceptable control on current therapies -add back lisinopril when appropriate 6.CAD -stable and well compensated -continue plan as ordered Jadynquis DNR/DNI Patient requires ongoing hospitalization for IV antibiotics to treat bacterial pneumonia/sepsis now resolved Quality Stroke Does the patient have a stroke diagnosis?: Yes Reason for No Anti-thrombotic by Day Two: Drug treatment not indicated VTE Prior VTE?: No VTE Risk Level:: Medical - moderate - high VTE Device Contraindication: Treatment Not Indicated VTE Drug Contraindication: N/A - Med Ordered
--- NOTE | 2023-12-02 17:00 | PC.NURSE ---
pt had burst of SVT. pt had no c/o pain or discomfort. informed. no interventions at this time
[2023-12-02] MEDS: cefTRIAXone sodium 1 GM in 0.9 % Sodium Chloride 50 ML IV (19:54)
[2023-12-02] MEDS: vancomycin HCL 1,250 MG in 0.9 % Sodium Chloride 250 ML 166.67 MG IV (23:33)
[2023-12-03] VITALS (13 sets, daily range): BP systolic 129–165; BP diastolic 59–77; PULSE 76–118; RESP 16–20; TEMP 36.1–36.8; O2SAT 82–94
[2023-12-03 07:20] LABS: Vancomycin Random 16.1 mcg/mL (15-20)
[2023-12-03] MEDS: Fluticasone/Vilanterol 200/25 BLST.W.DEV 1 PUFF INHALE (07:52)
[2023-12-03] MEDS: Albuterol/Iprat 2.5/0.5MG 3 ML AMPUL.NEB INHALE ×3 (07:52→15:38)
[2023-12-03] MEDS: Atorvastatin Calcium 80 MG TABLET PO (08:10)
[2023-12-03] MEDS: Clopidogrel Bisulfate 75 MG TABLET PO (08:10)
[2023-12-03] MEDS: Apixaban 5 MG TABLET PO (08:10)
[2023-12-03] MEDS: Cyanocobalamin (Vitamin B-12) 1,000 MCG TABLET 1000 MCG PO (08:10)
[2023-12-03] MEDS: Sertraline HCL 100 MG TABLET PO (08:10)
[2023-12-03] MEDS: 0.9 % Sodium Chloride Flush 3 ML SYRINGE IVFLUSH ×2 (08:10→18:47)
[2023-12-03] MEDS: Famotidine 20 MG TABLET PO (08:10)
[2023-12-03] MEDS: Metoprolol Tartrate 12.5 MG HALFTAB PO ×2 (08:10→20:55)
[2023-12-03] MEDS: Sertraline HCL 50 MG TABLET PO (08:10)
[2023-12-03 08:59] LABS: Creatinine Clr Calc Pharmacy 72.8; Estimated Glomerular Filt Rate > 60
--- NOTE | 2023-12-03 13:30 | MHC.SL.SWA ---
Speech Pathologist Impression: Risk of Aspiration Due to: Dysphasia Diet Status: Recommend continue on Regular Diet with thin liquids, pills whole with liquid. Liquid Consistency and Strategies for Safe Swallow: Liquid Intake Recommendation: Thin Liquid Intake Strategies: Small Sips Solid Food Consistency: Dietary Recommendations: Regular Additional Modifications to Solid Foods: Patient is tolerating this diet consistency well, however evidenced need for supervision, particularly at start of meal. Assure that patient understands all items, that they are open and available to him, and that he is oriented to the location of implements on tray. At a minimum, periodically check to assure patient is progressing with meal and not confused, though full supervision is recommended. Oral Medication Intake: Whole with Liquid Please contact the pharmacy regarding appropriate crushable or liquid drug formulations that are available whenever modified delivery is recommended. Compensatory Strategies and Precautions to be Taken for Safe Swallow: Sitting Upright (90 deg) Small Bites and Sips Alternate Liquids/Solids Rate of Ingestion Change Avoid Specific Foods Supervision While Eating and Drinking for Safe Swallow: Total Supervision (1:1) Foods to Avoid: Avoid tough to chew foods Swallowing Recommended Treatments: Compens. Strategy Educat. Recommendation for Speech: Inpatient Speech Therapy Comment: Patient was seen at lunch. Patient had tray on table beside bed, had taken from the tray the ice cream, which he had opened but appeared confused as how to eat it as he did not have a spoon (which therapist retrieved from tray to give to him). Patient was pleasant but did present as confused throughout the session. Tray was a regular lunch with a tuna fish sandwich and a bowl of mashed potatoes and juice. Patient independently fed self the ice cream with no difficulties noted. Table with tray was then placed so that he could easily access food, but he continued to be somewhat confused by how to eat the meal. BANJO REPAIRER then cut sandwich into smaller pieces, which patient appreciated then took 1/4 slice of sandwich and ate independently by hand. Patient managed this regular, multitexture food without any swallowing difficulty. Patient also took sips of grape juice, after being oriented to it, independently and by straw. Patient is tolerating this diet consistency well, however evidenced need for supervision, particularly at start of meal. Assure that patient understands all items, that they are open and available to him, and that he is oriented to the location of implements on tray. At a minimum, periodically check to assure patient is progressing with meal and not confused, though full supervision is recommended. Recommend continue on Regular Diet with thin liquids, pills whole with liquid. Frequency/Duration: Date Range for Service Req: Timeline to reassess: Store Sales Manager Clinican/Clinical Fellow: No Supervisory Statement: I have reviewed and agree with the student/clinical fellow's documentation: N/A Speech Language Pathologist: Agueda Han M.A., CCC-BANJO REPAIRER
--- NOTE | 2023-12-03 14:55 | HO.PM.IMPN ---
Subjective Subjective Date of Service: 12/03/23 Interval History: More alert today. Feels better since admission Review of Systems Denies chest pain Denies shortness of breath Denies nausea vomiting diarrhea Denies fever chills Physical Exam Vital Signs: Vital Signs: Last Vital Signs Temp 97.0 F 12/03/23 11:14 Pulse 89 12/03/23 11:39 Resp 20 12/03/23 11:39 BP 142/68 H 12/03/23 11:14 Pulse Ox 93 12/03/23 11:14 O2 Del Method Nasal Cannula 12/03/23 11:14 O2 Flow Rate 3 12/03/23 11:14 Oxygen Flow Rate 2 12/01/23 12:29 BMI result Body Mass Index 19.1 Const: Other: Awake alert no acute distress Resp: Other: Clear to auscultation bilaterally no rales rhonchi or wheezes Cardio: Other: No S4; positive S1-S2; no S3 murmurs rubs or gallops GI: Other: Soft nontender nondistended normoactive bowel sounds Extrem: Other: No edema bilaterally Objective Data Active Medications Acetaminophen (Acetaminophen 325 Mg Tablet) 650 mg PO Q6H PRN PRN Reason: Pain, Mild (Pain Scale 1-3) Albuterol Sulfate (Albuterol Sulfate 90 Mcg 8 Gm Inhaler) 2 puff INHALE Q4H PRN PRN Reason: Shortness Of Breath Or Wheezing Albuterol/Ipratropium (Albuterol/Iprat 2.5/0.5mg 3 Ml Ampul.Neb) 3 ml INHALE RQ4H WHILE AWAKE [facility] Last Admin: 12/03/23 11:37 Dose: 3 ml Documented By: MADISON Apixaban (Apixaban 5 Mg Tablet) 5 mg PO BID [facility] Last Admin: 12/03/23 08:10 Dose: 5 mg Documented By: ESTER Atorvastatin Calcium (Atorvastatin Calcium 80 Mg Tablet) 80 mg PO DAILY [facility] Last Admin: 12/03/23 08:10 Dose: 80 mg Documented By: ESTER Clopidogrel Bisulfate (Clopidogrel Bisulfate 75 Mg Tablet) 75 mg PO DAILY [facility] Last Admin: 12/03/23 08:10 Dose: 75 mg Documented By: ESTER Cyanocobalamin (Cyanocobalamin (Vitamin B-12) 1,000 Mcg Tablet) 1,000 mcg PO DAILY [facility] Last Admin: 12/03/23 08:10 Dose: 1,000 mcg Documented By: ESTER Enalapril Maleate (Enalapril Maleate 5 Mg Tablet) 5 mg PO BID [facility]; Protocol Last Admin: 12/03/23 08:10 Dose: 5 mg Documented By: ESTER Famotidine (Famotidine 20 Mg Tablet) 20 mg PO DAILY [facility] Last Admin: 12/03/23 08:10 Dose: 20 mg Documented By: ESTER Fluticasone/Vilanterol (Fluticasone/Vilanterol 200/25 Blst.W.Dev) 1 puff INHALE RDAILY [facility] Last Admin: 12/03/23 07:52 Dose: 1 puff Documented By: TRUPTI Vancomycin HCl 1,250 mg/ (Sodium Chloride) 250 mls @ 166.667 mls/hr IV Q24H [facility] Last Infusion: 12/03/23 02:38 Dose: Infused Documented By: LAURA Ceftriaxone Sodium 1 gm/ (Sodium Chloride) 50 mls @ 100 mls/hr IV Q24H [facility] Last Infusion: 12/02/23 20:50 Dose: Infused Documented By: LAURA Melatonin (Melatonin 3 Mg Tablet) 3 mg PO BEDTIME PRN PRN Reason: Insomnia Metoprolol Tartrate (Metoprolol Tartrate 12.5 Mg Halftab) 12.5 mg PO BID [facility]; Protocol Last Admin: 12/03/23 08:10 Dose: 12.5 mg Documented By: ESTER Ondansetron HCl (Ondansetron Hcl 4 Mg/2 Ml Vial) 4 mg IVPUSH Q8H PRN PRN Reason: Nausea and Vomiting Pharmacy Consult (Consult Rx Vancomycin Dosing) 1 each MISCELLANE DAILY PRN PRN Reason: Consult order Senna (Sennosides 8.6 Mg Tablet) 17.2 mg PO BEDTIME PRN PRN Reason: Constipation Sertraline HCl (Sertraline Hcl 50 Mg Tablet) 50 mg PO DAILY [facility] Last Admin: 12/03/23 08:10 Dose: 50 mg Documented By: ESTER Sertraline HCl (Sertraline Hcl 100 Mg Tablet) 100 mg PO DAILY [facility] Last Admin: 12/03/23 08:10 Dose: 100 mg Documented By: ESTER Sodium Chloride (0.9 % Sodium Chloride Flush 3 Ml Syringe) 3 ml IVFLUSH QSHIFT [facility] Last Admin: 12/03/23 08:10 Dose: 3 ml Documented By: ESTER Labs 12/02/23 06:45 12/03/23 07:42 Labs: Laboratory Results - last 24 hr 12/03/23 12/03/23 06:53 07:42 Estim Creat Clear Calc 72.8 Estimated GFR > 60 Random Vancomycin 16.1 Microbiology Microbiology Results: Microbiology 12/01/23 13:46 Blood Culture - Preliminary Blood - Venous Streptococcus pneumoniae 12/01/23 16:28 Blood Culture - Preliminary Blood - Venous No growth after 24 hours. Assessment and Plan (1) Atrial fibrillation with RVR: Status: Acute (2) Bacteremia due to Gram-positive bacteria: Status: Acute Plan 83 year old male with history of paroxysmal atrial fibrillation not on ac, htn, copd, PAD on plavix, hx of prostate ca s/p radiation, CAD, GERD admitted for further management of acute LLL pneumonia with sepsis and acute hypoxemic respiratory failure and atrial fibrillation with RVR. 1.Paroxysmal atrial fibrillation with rvr- rate controlled -eliquis 5mg BID -metoprolol 12.5 mg bid.. Adjust dose as indicated -LVEF 48% with basilar and mid inferior segments hypokinetic 2.Acute hypoxemic respiratory failure/bacterial pneumonia with sepsis(resolved) -diagnosed with influenza 6 days ago completed Tamiflu. 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 Also occlusion of the right vertebral artery origin but this is more likely artifactual. -neuro input appreciated. .. will continue Plavix 4.COPD -no acute exacerbation -continue maintenance inhalers, albuterol p.r.n. 5.Hypertension -acceptable control on current therapies -add back lisinopril when appropriate 6.CAD -stable and well compensated -continue plan as ordered Rosalie DNR/DNI Patient requires ongoing hospitalization for IV antibiotics to treat bacterial pneumonia/sepsis now resolved Quality Stroke Does the patient have a stroke diagnosis?: Yes Reason for No Anti-thrombotic by Day Two: Drug treatment not indicated VTE Prior VTE?: No VTE Risk Level:: Medical - moderate - high VTE Device Contraindication: Treatment Not Indicated VTE Drug Contraindication: N/A - Med Ordered
[2023-12-03] MEDS: cefTRIAXone sodium 1 GM in 0.9 % Sodium Chloride 50 ML IV (18:48)
--- NOTE | 2023-12-03 21:37 | HE.PHANOTE ---
PATRICIA New dose entered 500mg Q8H per subtherapeutic trough of 8.0. Predicted trough 14.2, predicted AUC 433. Next trough to be drawn 12/03 @2100.
[2023-12-03] MEDS: vancomycin HCL 500 MG in 0.9 % Sodium Chloride 100 ML 110 MG IV (22:22)
[2023-12-04] VITALS (7 sets, daily range): BP systolic 128–139; BP diastolic 52–62; PULSE 68–88; RESP 16–18; TEMP 36.3–36.7; O2SAT 91–96
[2023-12-04] MEDS: vancomycin HCL 500 MG in 0.9 % Sodium Chloride 100 ML 110 MG IV (05:33)
[2023-12-04] MEDS: 0.9 % Sodium Chloride Flush 3 ML SYRINGE IVFLUSH ×2 (05:33→08:27)
[2023-12-04 07:19] LABS: Creatinine Clr Calc Pharmacy 70.6; Estimated Glomerular Filt Rate > 60
[2023-12-04] MEDS: Albuterol/Iprat 2.5/0.5MG 3 ML AMPUL.NEB INHALE ×2 (08:18→11:35)
[2023-12-04] MEDS: Fluticasone/Vilanterol 200/25 BLST.W.DEV 1 PUFF INHALE (08:18)
[2023-12-04] MEDS: Sertraline HCL 100 MG TABLET PO (08:26)
[2023-12-04] MEDS: Sertraline HCL 50 MG TABLET PO (08:26)
[2023-12-04] MEDS: Famotidine 20 MG TABLET PO (08:26)
[2023-12-04] MEDS: Metoprolol Tartrate 12.5 MG HALFTAB PO (08:26)
[2023-12-04] MEDS: Cyanocobalamin (Vitamin B-12) 1,000 MCG TABLET 1000 MCG PO (08:26)
[2023-12-04] MEDS: Atorvastatin Calcium 80 MG TABLET PO (08:27)
[2023-12-04] MEDS: Clopidogrel Bisulfate 75 MG TABLET PO (08:27)
--- NOTE | 2023-12-04 10:26 | MHC.SL.SWA ---
Dysphasia Diet Status: Patient is tolerating regular texture diet. Patient will need assistance with tray set up and direct supervision for meals. Further ST intervention no longer warranted at this level of care. Please re-refer with any concerns. Liquid Consistency and Strategies for Safe Swallow: Liquid Intake Recommendation: Thin Liquid Intake Strategies: Small Sips Solid Food Consistency: Dietary Recommendations: Regular Additional Modifications to Solid Foods: Patient is tolerating this diet consistency well, however evidenced need for supervision, particularly at start of meal. Assure that patient understands all items, that they are open and available to him, and that he is oriented to the location of implements on tray. At a minimum, periodically check to assure patient is progressing with meal and not confused, though full supervision is recommended. Oral Medication Intake: Whole with Liquid Please contact the pharmacy regarding appropriate crushable or liquid drug formulations that are available whenever modified delivery is recommended. Compensatory Strategies and Precautions to be Taken for Safe Swallow: Sitting Upright (90 deg) Small Bites and Sips Alternate Liquids/Solids Rate of Ingestion Change Avoid Specific Foods Supervision While Eating and Drinking for Safe Swallow: Total Supervision (1:1) Foods to Avoid: Avoid tough to chew foods Recommendation for Speech: D/C Public Health Technologist Clinican/Clinical Fellow: No Supervisory Statement: I have reviewed and agree with the student/clinical fellow's documentation: N/A Speech Language Pathologist: Rebecca Vyas M.A., CCC-AUTOC[employer]
--- NOTE | 2023-12-04 10:30 | MHC.CM.PN ---
Pt has been medically cleared for DC, he will be transferred today to [facility] for STR.
--- NOTE | 2023-12-04 11:59 | PM.DS ---
DS: Providers Provider Date of Service: 12/04/23 Date of admission: 12/01/23 18:04 Date of discharge: 12/04/23 Primary care physician: Ijemoa Whaley MD Consults: 12/01/23 15:45 Consult to Cardiology Routine Consulting Provider[place] [facility] [place] [facility] Reason for consultation: afib rvr 12/01/23 18:06 Consult to Neurology Routine Consulting Provider: [facility] Reason for consultation: ?TIA vs embolic cva 12/02/23 05:23 Consult to Wound Care Routine Reason for consultation: redness to coccyx DS: Diagnosis Discharge Diagnosis (1) Atrial fibrillation with RVR: Status: Acute (2) Bacteremia due to Gram-positive bacteria: Status: Acute (3) Left lower lobe pulmonary infiltrate: Status: Acute DS: Summary Hospital Course Hospital Course: 83 year old male with history of paroxysmal atrial fibrillation not on ac, htn, copd, PAD on plavix, hx of prostate ca s/p radiation, CAD, GERD presents to the ED for evaluation of generalized weakness, dyspnea, and palpitations ongoing several days. He was recently diagnosed with influenza A 6 days ago and completed tamiflu. he reports his cough and congestion has improved but has had worsening of the above symptoms. No fevers or chills. He does also tell me for a period around 30 minutes he experienced word finding difficulty and confusion that resolved spontaneously. He denies focal weakness, paresthesias, slurred speech, facial droop, gait imbalance. Per EMS, was found to be in AFib with rate 160 improved to 1 20s with IV fluids. POC was 308. Was also hypoxic to 86% and placed on 4 L via OxyMask. During examination was also witnessed to drop to 88% despite 4 L with any movement or when talking. He was also initially tachypneic to 35. No hypotension though blood pressure is soft 138/69 with IV fluids. There was a leukocytosis of 18.4. Renal function baseline, electrolyte levels normal. Glucose 202. Lactic acid 1.7. Initial troponin 49.1, repeat pending. BNP 264. Influenza, RSV, COVID-19 negative. CXR shows new left basilar focal consolidation concerning for atelectasis versus pneumonia and small left-sided pleural effusion. There is all so redemonstration of previously identified diffuse fibrotic changes. EKG shows unspecified rhythm though appears consistent with atrial fibrillation, rate [address] or depressions. In the ED, initiated on 0.25 mg IV digoxin, given 1 L IV NS, 1 g ceftriaxone and 500 mg IV Zithromax. Patient will be admitted for further management of acute left lower lobe pneumonia with sepsis and acute hypoxemic respiratory failure as well as atrial fibrillation with RVR. Hospital Course Patient was admitted to telemetry and started on ceftriaxone and vancomycin. He was seen in consultation by Cardiology who felt that this was in atrial tachycardia and not an atrial fibrillation. Received aggressive volume for treatment of his infiltrate. Patient was also seen in consultation by Neurology for word-finding difficulties. Workup including MRI of brain and head neck CTA failed to demonstrate any acute pathology. Neurology's recommendation was Plavix 75 mg daily. Patient continued to improve over the next 48 hours and no longer has O2 requirement. 1/2 blood cultures grew strep pneumoniae that was sensitive to ceftriaxone. At this point he is medically acceptable for Date of service date of discharge: On 2 weeks of oral Ceftin. Time Attestation Discharge Coordination Time (in mins): 35 Quality: Safe Use of Opioids Does Pt have an Active Cancer Diagnosis on the Problem List?: No Quality: Stroke Does the patient have a stroke diagnosis?: No Physical Exam Vital Signs: Vital Signs: Last Vital Signs Temp 98.1 F 12/04/23 11:38 Pulse 88 12/04/23 11:38 Resp 18 12/04/23 11:38 BP 128/58 L 12/04/23 11:38 Pulse Ox 95 12/04/23 11:38 O2 Del Method Room Air 12/04/23 11:38 O2 Flow Rate 2 12/03/23 19:45 Oxygen Flow Rate 2 12/01/23 12:29 BMI result Body Mass Index 19.1 Const: Other: Awake alert no acute distress Resp: Other: Clear to auscultation bilaterally no rales rhonchi or wheezes Cardio: Other: No S4; positive S1-S2; no S3 murmurs rubs or gallops GI: Other: Soft nontender nondistended normoactive bowel sounds Extrem: Other: No edema bilaterally DS: Data Data Completed and Pending Labs on day of discharge: Laboratory Results - last 24 hr 12/03/23 12/04/23 21:04 06:15 Hold Purple Top SEE NOTE Creatinine 0.65 Estim Creat Clear Calc 70.6 Estimated GFR > 60 Random Vancomycin 8.0 L Preliminary micro results at discharge 12/01/23 16:28 Blood Culture - Preliminary Blood - Venous No growth after 48 hours. Discharge Plan Discharge Anticipated Discharge Date/Time: 12/04/23 11:56 Patient Disposition: Xfer SNF Discharge Diagnosis: Left lower lobe pneumonia Referrals: Leah Longoria Oz[facility] [Outside] - 1 Week Ijeoma Whaley MD [Primary Care Provider] - 1 Week Discharge Medications: New cefuroxime axetil 500 mg tablet 500 mg PO BID 14 Days Qty: 28 0RF Continued enalapril maleate 5 mg tablet 5 mg PO BID albuterol sulfate [Ventolin HFA] 90 mcg/actuation HFA aerosol inhaler 2 puff inhalation Q4H PRN (Reason: Shortness Of Breath Or Wheezing) fluticasone furoate-vilanterol [Breo Ellipta] 200-25 mcg/dose blister with device 1 ea inhalation DAILY cyanocobalamin (vitamin B-12) 1,000 mcg Tablet 1,000 mcg PO DAILY sertraline 50 mg Tablet 50 mg PO DAILY Rx Instructions: take with 100 mg tablet for total dose of 150 mg clopidogrel [Plavix] 75 mg tablet 75 mg PO DAILY atorvastatin [Lipitor] 80 mg tablet 80 mg PO DAILY sertraline 100 mg tablet 100 mg PO DAILY famotidine 20 mg tablet 20 mg PO DAILY melatonin 3 mg capsule 3 mg PO BEDTIME PRN (Reason: Insomnia) acetaminophen [Tylenol Arthritis Pain] 650 mg tablet extended release 650 mg PO Q8H PRN (Reason: Moderate Pain (Scale Score 5-6)) Discharge Orders: Discharge Order (Routine); Ordered 12/04/23 Ordered By: Jacky Hyatt Diet: Advance to usual diet Activity on Discharge: As tolerated Stand Alone Forms: Patient Portal Discharge page Print Language: Bahamian Care Plan Goals: Continue all meds as ordered Health Concerns: Complete 14 day course of Ceftin 500 mg twice daily Plan of Treatment: As per receiving facility Assessment: See discharge summary
== END 2023-12-04 12:28 | disposition skilled nursing facility (03) | DRG 871 ==
LOC: HO.ED 15:00 → HO.EDOVER 18:30 → HO.IMC 12-02 03:50
PROVIDERS: Admitting Provider Physician Assistant; Emergency Provider Emergency Medicine; PCP Internal Medicine; Visit Provider Hospitalist
DX: A41.9 Sepsis, unspecified organism (principal); J15.9 Unspecified bacterial pneumonia; J96.01 Acute respiratory failure with hypoxia; J44.0 Chronic obstructive pulmonary disease with (acute) lower respiratory infection; I47.19 Other supraventricular tachycardia; I49.1 Atrial premature depolarization; Z66 Do not resuscitate; I25.10 Atherosclerotic heart disease of native coronary artery without angina pectoris; K21.9 Gastro-esophageal reflux disease without esophagitis; F39 Unspecified mood [affective] disorder; I73.9 Peripheral vascular disease, unspecified; I10 Essential (primary) hypertension; E86.0 Dehydration; I48.0 Paroxysmal atrial fibrillation; Z85.46 Personal history of malignant neoplasm of prostate; Z92.3 Personal history of irradiation; Z20.822 Contact with and (suspected) exposure to COVID-19; Z79.02 Long term (current) use of antithrombotics/antiplatelets; Z79.51 Long term (current) use of inhaled steroids; Z79.899 Other long term (current) drug therapy
CPT/HCPCS: 0241U; 36415; 70496; 70498; 70551; 71045; 80048; 80061; 80076; 80202; 81001; 82565; 83605; 83690; 83880; 84484; 85025; 87040; 87077; 87186; 87205; 92526; 92610; 93005; 93306; 94640; 97116; 97162; 97167; 97530; 97535; 99285; J0456; J0696; J1160; J3370; J3371; Q9967

== ENCOUNTER 2023-12-01 18:04 | Outpatient (BNV) | payer MEDICARE, OTHER, SELFPAY | END 2023-12-02 07:00 | PROVIDERS: Admitting Provider Physician Assistant; Emergency Provider Emergency Medicine; PCP Internal Medicine; Visit Provider Internal Medicine | DX: I34.81 Nonrheumatic mitral (valve) annulus calcification (principal) | CPT/HCPCS: 93306 ==

== ENCOUNTER → 2023-12-01 18:04 | Outpatient (BNV) | payer MEDICARE, OTHER, SELFPAY | PROVIDERS: Admitting Provider Physician Assistant; Emergency Provider Emergency Medicine; PCP Internal Medicine; Visit Provider Internal Medicine | DX: I49.8 Other specified cardiac arrhythmias (principal); I47.19 Other supraventricular tachycardia; I25.10 Atherosclerotic heart disease of native coronary artery without angina pectoris; J18.9 Pneumonia, unspecified organism; A41.9 Sepsis, unspecified organism; J10.1 Influenza due to other identified influenza virus with other respiratory manifestations; I48.0 Paroxysmal atrial fibrillation | CPT/HCPCS: 93010; 99223 ==

== ENCOUNTER → 2023-12-01 18:04 | Outpatient (BNV) | payer MEDICARE, OTHER, SELFPAY | PROVIDERS: Admitting Provider Physician Assistant; Emergency Provider Emergency Medicine; PCP Internal Medicine; Visit Provider Psychiatry & Neurology Neurology | DX: R47.89 Other speech disturbances (principal); I49.8 Other specified cardiac arrhythmias; I25.10 Atherosclerotic heart disease of native coronary artery without angina pectoris; J18.9 Pneumonia, unspecified organism; A41.9 Sepsis, unspecified organism | CPT/HCPCS: 99223 ==

== ENCOUNTER → 2023-12-01 18:04 | Outpatient (BNV) | payer MEDICARE, OTHER, SELFPAY | PROVIDERS: Admitting Provider Physician Assistant; Emergency Provider Emergency Medicine; PCP Internal Medicine; Visit Provider Internal Medicine | DX: I48.91 Unspecified atrial fibrillation (principal); R78.81 Bacteremia; R91.8 Other nonspecific abnormal finding of lung field | CPT/HCPCS: 99223; 99232; 99239; 99499 ==

== ENCOUNTER 2024-04-19 22:15 | Inpatient (IN) | payer MEDICARE, OTHER, SELFPAY ==
[2024-04-19] VITALS (7 sets, daily range): BP systolic 119–142; BP diastolic 60–93; PULSE 90–105; RESP 18–22; TEMP 37.9–40.2; O2SAT 86–97; BMI 22.7
--- NOTE | ~2024-04-19 | XR_ITS ---
EXAMINATION: XR CHEST CLINICAL INFORMATION: Cough and fever. COMPARISON: Chest radiograph 12/01/2023. TECHNIQUE: Frontal view of the chest was obtained. FINDINGS: Chronic diffuse interstitial thickening. Minimal retrocardiac opacities partially silhouetting the left hemidiaphragm. No pleural effusion. No pneumothorax. Biapical nodular opacities. No significant cardiomediastinal contour abnormality. No acute osseous findings. Chronic distal right clavicular deformity. XR/XR chest 1V IMPRESSION: 1. Suggestion of mild retrocardiac infiltrates, recommend evaluation with lateral radiographic view of the chest. 2. Nonspecific biapical nodular opacities. Recommend follow-up with CT chest 3 months. 3. Background of chronic diffuse interstitial thickening. Electronically signed by: Mojgan Gutiérrez MD 04/20/2024 12:21 AM EDT
--- NOTE | 2024-04-19 22:37 | ECG_ITS ---
Test Reason : A FIB Blood Pressure : / mmHG Vent. Rate : 104 BPM Atrial Rate : 104 BPM P-R Int : 190 ms QRS Dur : 086 ms QT Int : 340 ms P-R-T Axes : 022 -68 075 degrees QTc Int : 447 ms Poor data quality, interpretation may be adversely affected Sinus tachycardia with Premature atrial complexes with Aberrant conduction Left axis deviation Inferior infarct , age undetermined Anteroseptal infarct (cited on or before 11-AUG-2023) Abnormal ECG When compared with ECG of 01-DEC-2023 12:54, Previous ECG has undetermined rhythm, needs review Inferior infarct is now Present Questionable change in initial forces of Septal leads Heart rate has decreased Referred By: Generic ED Physician Electronically Signed By:MELVIN GRAY
[2024-04-19 22:54] LABS: MANUAL DIFF FLAG NO
[2024-04-19] MEDS: cefTRIAXone sodium 1 GM in 0.9 % Sodium Chloride 50 ML IV (22:54)
[2024-04-19 22:55] LABS: Eosinophils Percent Auto 0.3 % (0-4); Hematocrit 34.4 % (42.0-52.0); Hemoglobin 11.4 g/dl (14.0-18.0); Imm Gran Abs Auto 0.03 X10*3/uL (0.00-0.03); Imm Gran Pct Auto 0.5 % (0.0-0.4); Lymphocytes Absolute Auto 0.3 X10*3/uL (1.2-4.9); Lymphocytes Percent Auto 4.1 % (20-40); Mean Corpuscular HGB Conc 33.1 g/dl (31.0-36.0); Mean Corpuscular Hemoglobin 30.3 pg (27.0-33.0); Mean Corpuscular Volume 91.5 fL (80.0-98.0); Mean Platelet Volume 9.3 fL (9.4-12.4); Monocytes Absolute Auto 0.5 X10*3/uL (0.1-1.2); Monocytes Percent Auto 8.2 % (2-11); Neutrophils Absolute Auto 5.3 x10*3/uL (2.0-8.3); Neutrophils Percent Auto 86.9 % (45-73); Platelet Count 139 X10*3/uL (160-400); Red Blood Count 3.76 X10*6/uL (4.60-5.80); Red Cell Distribution Width 15.6 % (11.0-16.0); White Blood Count 6.1 X10*3/uL (4.8-10.8)
--- NOTE | 2024-04-19 23:00 | MHC.EDTECH ---
Patient BIBA,changed into hospital attire,RN placed patient on the nurse charge rn vitals taken,patient has a rectal temp of 104.4,Continues rectal probe placed,computer aided design technician Adalberto assisted this tech with blood cultures/labs,SARS/FLU/RSV sent to lab,EKG taken per order, This tech placed a [place] Catheter patient tolerated well,call hernandez in reach
[2024-04-19 23:04] LABS: INTERNATIONAL NORM RATIO 1.1 (0.9-1.1); Prothrombin Time 13.4 SEC (11.1-13.3)
[2024-04-19 23:13] LABS: Alanine Aminotransferase 19 U/L (0-40); Albumin Level 3.7 g/dL (3.5-5.0); Alkaline Phosphatase 64 U/L (39-117); Anion Gap 14 (12-20); Aspartate Amino Transferase 20 U/L (5-37); Bilirubin Total 0.5 mg/dL (0.0-1.0); Blood Urea Nitrogen 21 mg/dL (9-16); Calcium 8.9 mg/dL (8.4-10.2); Carbon Dioxide 25 mmol/L (22-29); Chloride 102 mmol/L (96-108); Creatinine Clr Calc Pharmacy 63.4; Estimated Glomerular Filt Rate > 60; Glucose Random 146 mg/dL (60-115); Magnesium 1.7 mg/dL (1.6-2.6); Potassium 3.7 mmol/L (3.3-5.1); Sodium 137 mmol/L (135-145); Total Protein 6.8 g/dL (6.5-8.0)
--- NOTE | 2024-04-19 23:15 | ED_ITS ---
HPI - General Adult General Chief complaint: Fever Stated complaint: AMS/WEAK/AFIB PER EMS Time Seen by Provider: 04/19/24 22:38 Source: patient and EMS Mode of arrival: EMS Limitations: altered mental status History of Present Illness ED Provider: Dr. Aurora Bhakta HPI narrative: Patient comes to the emergency room via ambulance from [facility]. According to the staff, the patient has been more confused than usual, coughing. Patient at baseline alert and oriented to name and they of . Per EMS, patient's oxygen saturation was in the low 90s. For comfort patient was put on 2 L of nasal cannula. On arrival, patient seems confused, answering yes no questions. Unable to give a full history. Patient admits that he has been coughing. Denies any chest pain or shortness of breath, no abdominal pain, denies hematuria or dysuria. Related Data Home Medications ?Medication ?Instructions ?Recorded ?Confirmed acetaminophen 650 mg 650 mg PO Q8H PRN Moderate Pain 08/28/21 12/01/23 tablet,extended release (Tylenol (Scale Score 5-6) Arthritis Pain) atorvastatin 80 mg tablet (Lipitor) 80 mg PO DAILY 08/28/21 12/01/23 clopidogrel 75 mg tablet (Plavix) 75 mg PO DAILY 08/28/21 12/01/23 famotidine 20 mg tablet 20 mg PO DAILY 08/28/21 12/01/23 melatonin 3 mg capsule 3 mg PO BEDTIME PRN Insomnia 08/28/21 12/01/23 sertraline 100 mg tablet 100 mg PO DAILY 08/28/21 12/01/23 albuterol sulfate 90 mcg/actuation 2 puff inhalation Q4H PRN 11/26/23 12/01/23 aerosol inhaler (Ventolin HFA) Shortness Of Breath Or Wheezing enalapril maleate 5 mg tablet 5 mg PO BID 11/26/23 12/01/23 fluticasone furoate 200 1 ea inhalation DAILY 11/26/23 12/01/23 mcg-vilanterol 25 mcg/dose inhalation powder (Breo Ellipta) cyanocobalamin (vitamin B-12) 1,000 mcg PO DAILY 12/01/23 12/01/23 1,000 mcg tablet sertraline 50 mg tablet 50 mg PO DAILY 12/01/23 12/01/23 Previous Rx's ?Medication ?Instructions ?Recorded cefuroxime axetil 500 mg tablet 500 mg PO BID 14 days #28 tabs 12/04/23 Allergies Allergy/AdvReac Type Severity Reaction Status Date / Time levofloxacin [From LEVAQUIN] Allergy Unknown HIVES Verified 04/19/24 22:27 lidocaine [LIDOCAINE] AdvReac Unknown IV Verified 04/19/24 22:27 SENSITIVE nitroglycerin AdvReac BP Drop Verified 04/19/24 22:27 tamsulosin AdvReac BP Drop Verified 04/19/24 22:27 Review of Systems 2 Review of Systems: Constitutional : No Weight loss, No Fever, No Chills, No Night Sweats, No Fatigue, No Malaise ENT/Mouth : No Hearing loss, No Ear Pain, No Nasal Congestion, No Sinus Pain, No Hoarseness, No sore throat, No Rhinorrhea, No Swallowing Difficulty Eyes: No Eye Pain, No Swelling, No Redness, No Foreign Body, No Discharge, No Vision Changes Cardiovascular : No Chest Pain, No SOB, No Dyspnea on Exertion, No Orthopnea, No Edema, No Palpitations Respiratory : Complaining of productive cough, No Wheezing, No Smoke Exposure, No Dyspnea Gastrointestinal : No Nausea, No Vomiting, No Diarrhea, No Constipation, No abdominal Pain, No Hematochezia, No Melena Genitourinary : no irregular bleeding, No Dysuria, No Urinary Frequency, No Hematuria, No Urinary Incontinence, No Urgency, No Flank Pain, No Urinary Flow Changes, No Hesitancy Musculoskeletal : No joint pain, No Myalgias, No Joint Swelling Skin : No Skin Lesions, No rash Neuro : No Weakness, No Numbness, No Paresthesias, No Loss of Consciousness, No Dizziness, No Headache Psych : No Anxiety/Panic, No Depression, No SI/HI/AH/VH, No Social Issues, Heme/Lymph: No Bruising, No Bleeding,No Lymphadenopathy Endocrine : No Polyuria, No Polydipsia, No Temperature Intolerance PMFSH Past Medical History Medical History Status post radiation therapy Influenza A Former smoker CAD (coronary artery disease) History of prostate cancer Mood disorder GERD (gastroesophageal reflux disease) PAD (peripheral artery disease) Atrial fibrillation COPD (chronic obstructive pulmonary disease) FHx: cholecystectomy Surgical History History of appendectomy S/P trigger finger release H/O angioplasty Social History Social History Household Members: None Housing: Apartment Do you presently have visiting nurse or other home services: No Unable to assess alcohol history related to: Unknown Alcohol intake: never Patient Tobacco Use Status: Former Tobacco user Tobacco use type: Cigarette e-Cigarette/Vaping Use: Never Used Second Hand Smoke Exposure: No Substance Use Type: Prescription Drugs Advance Directives: Yes Advance Directives on File: Yes Advance Directives Date on File: 12/01/23 Do you have a plan to hurt others: No Plan service: No Current occupational status: disabled Current occupation: Rt handed Physical Exam ED Vital Signs: Vital Signs - 24 hr 04/19/24 22:21 04/19/24 22:35 04/19/24 22:55 Temperature 100.2 F 104.1 F H 104.4 F H Pulse Rate 104 H 103 H Respiratory Rate 20 20 Blood Pressure 142/68 H 128/67 Pulse Oximetry 96 95 Oxygen Delivery Method Nasal Cannula Room Air Oxygen Flow Rate 04/19/24 23:18 04/19/24 23:23 Temperature 103.1 F H Pulse Rate 105 H Respiratory Rate 18 Blood Pressure 136/63 Pulse Oximetry 86 L 96 Oxygen Delivery Method Room Air Nasal Cannula Oxygen Flow Rate 2 BMI result Body Mass Index 22.7 Const Other: Appearance: Alert. No acute distress. seems confused Eyes: Pupils equal, round and reactive to light. ENT: Pharynx normal. Neck: Normal inspection. Neck supple. No lymph nodes noted. No crepitus CVS: Normal heart rate and rhythm. Pulses normal. Normal S1 and S2 Respiratory: No respiratory distress. bilateral crackles, no wheezing, no rales Abdomen: Soft and nontender. No rigidity. No distention. Skin: Skin warm and dry. Normal skin color. Normal skin turgor. Extremities: No lower extremity edema. No Lacerations. No Rash Neuro: Moving all extremities. No slurred speech. CN 2 through 12 grossly intact Psych: calm, cooperative, normal affect Course Course Course Narrative: - patient feels very warm to touch. Patient actively coughing. - Empirically, patient will be treated with IV fluids and IV antibiotics, azithromycin and ceftriaxone. - all Of patient's labs and vitals pending Medications Administered Generic Name Dose Route Start Last Admin Trade Name Freq PRN Reason Stop Dose Admin Sodium Chloride 1,914 mls @ 1,914 mls/hr 04/19/24 22:52 04/19/24 22:54 Ns 30 ml/kg infuse over 1 hr (1914 ml) 04/19/24 23:51 1,914 mls/hr IV Administration .Q1H STA Azithromycin 500 mg/ Sodium 250 mls @ 125 mls/hr 04/19/24 23:15 04/19/24 23:29 Chloride IV 04/20/24 01:14 125 mls/hr ONCE ONE Administration Discontinued Medications Generic Name Dose Route Start Last Admin Trade Name Freq PRN Reason Stop Dose Admin Ceftriaxone Sodium 1 gm/ 50 mls @ 100 mls/hr 04/19/24 22:51 04/19/24 23:29 Sodium Chloride IV 04/19/24 23:20 Infused ONCE ONE Infusion Medical Decision Making Medical Decision Making MDM Narrative: - my interpretation of labs: Patient's white blood cell count 6.1, chronic anemia. Heme she does not show any significant abnormality. Lactic acid normal. Magnesium normal, BNP normal. - Troponin pending - my interpretation of chest x-ray, possible left lower lobe pneumonia. Radiology report pending - Patient is now on 2 L, patient's oxygen saturation drops to 88% at rest. Patient is not oxygen dependent. - patient has a fever of 104, heart rate of 103 due to the fever, blood pressure 128/67, respiratory rate 20. Patient on 2 L of oxygen saturating 95%. - Patient already received IV fluids, ceftriaxone and azithromycin. patient tested positive for COVID. Patient likely having viral pneumonia. Patient's nurse will contact the patient's assisted living facility to inform them about the patient's diagnosis, as they may need to take further precautions for their current residents Differential Diagnosis Differential Diagnoses: The differential diagnosis associated with the presentation includes ( Pneumonia, UTI, viral syndrome) Admission/Observation Consideration of admission/observation: Escalation of care including admission/observation considered Consult Healthcare Provider Management of the patient was discussed with: Hospitalist Lab Data MDM Lab Attestation statement: I reviewed the patient's lab results. 04/19/24 22:48 04/19/24 22:48 Labs: Lab Results 04/19/24 04/19/24 04/19/24 Range/Units 22:44 22:48 22:50 WBC 6.1 (4.8-10.8) X10*3/uL RBC 3.76 L (4.60-5.80) X10*6/uL Hgb 11.4 L (14.0-18.0) g/dl Hct 34.4 L (42.0-52.0) % MCV 91.5 (80.0-98.0) fL MCH 30.3 (27.0-33.0) pg MCHC 33.1 (31.0-36.0) g/dl RDW 15.6 (11.0-16.0) % Plt Count 139 L (160-400) X10*3/uL MPV 9.3 L (9.4-12.4) fL Immature Gran % (Auto) 0.5 H (0.0-0.4) % Neut % (Auto) 86.9 H (45-73) % Lymph % (Auto) 4.1 L (20-40) % [place] % (Auto) 8.2 (2-11) % Eos % (Auto) 0.3 (0-4) % Baso % (Auto) 0.0 (0-2) % Lymph # (Auto) 0.3 L (1.2-4.9) X10*3/uL [place] # (Auto) 0.5 (0.1-1.2) X10*3/uL Eos # (Auto) 0.0 (0.0-0.4) X10*3/uL Baso # (Auto) 0.0 (0.0-0.2) X10*3/uL Abs Immat Gran (auto) 0.03 (0.00-0.03) X10*3/uL Absolute Neuts (auto) 5.3 (2.0-8.3) x10*3/uL Absolute Nucleated RBC 0.000 (0.0-0.012) X10*3/uL Nucleated RBC % (auto) 0.0 (0.0-0.2) /100WBC PT 13.4 H (11.1-13.3) SEC INR 1.1 (0.9-1.1) Sodium 137 (135-145) mmol/L Potassium 3.7 (3.3-5.1) mmol/L Chloride 102 (96-108) mmol/L Carbon Dioxide 25 (22-29) mmol/L Anion Gap 14 (12-20) BUN 21 H (9-16) mg/dL Creatinine 0.81 (0.5-1.4) mg/dL Estim Creat Clear Calc 63.4 Estimated GFR > 60 Random Glucose 146 H (60-115) mg/dL Lactic Acid 1.0 (0.5-2.0) mmol/L Calcium 8.9 (8.4-10.2) mg/dL Magnesium 1.7 (1.6-2.6) mg/dL Total Bilirubin 0.5 (0.0-1.0) mg/dL AST 20 (5-37) U/L ALT 19 (0-40) U/L Alkaline Phosphatase 64 (39-117) U/L Troponin I High Sens 21.8 (<3.5-35.0) ng/L B-Natriuretic Peptide 87 (<100) pg/mL Total Protein 6.8 (6.5-8.0) g/dL Albumin 3.7 (3.5-5.0) g/dL Urine Color Urine Appearance Urine pH (5.0-9.0) Ur Specific [place] (1.005-1.025) Urine Protein (Neg-Trace) mg/dL Urine Glucose (UA) (Negative) mg/dL Urine Ketones (Negative) mg/dL Urine Blood (Negative) Urine Nitrite (Negative) Ur Leukocyte Esterase (Negative) Influenza Type A (PCR) NEGATIVE (Negative) Influenza Type B (PCR) NEGATIVE (Negative) RSV RNA Qual (PCR) NEGATIVE (Negative) SARS-CoV-2 RNA (RT-PCR) POSITIVE A (Negative) 04/19/24 Range/Units 23:22 WBC (4.8-10.8) X10*3/uL RBC (4.60-5.80) X10*6/uL Hgb (14.0-18.0) g/dl Hct (42.0-52.0) % MCV (80.0-98.0) fL MCH (27.0-33.0) pg MCHC (31.0-36.0) g/dl RDW (11.0-16.0) % Plt Count (160-400) X10*3/uL MPV (9.4-12.4) fL Immature Gran % (Auto) (0.0-0.4) % Neut % (Auto) (45-73) % Lymph % (Auto) (20-40) % [place] % (Auto) (2-11) % Eos % (Auto) (0-4) % Baso % (Auto) (0-2) % Lymph # (Auto) (1.2-4.9) X10*3/uL [place] # (Auto) (0.1-1.2) X10*3/uL Eos # (Auto) (0.0-0.4) X10*3/uL Baso # (Auto) (0.0-0.2) X10*3/uL Abs Immat Gran (auto) (0.00-0.03) X10*3/uL Absolute Neuts (auto) (2.0-8.3) x10*3/uL Absolute Nucleated RBC (0.0-0.012) X10*3/uL Nucleated RBC % (auto) (0.0-0.2) /100WBC PT (11.1-13.3) SEC INR (0.9-1.1) Sodium (135-145) mmol/L Potassium (3.3-5.1) mmol/L Chloride (96-108) mmol/L Carbon Dioxide (22-29) mmol/L Anion Gap (12-20) BUN (9-16) mg/dL Creatinine (0.5-1.4) mg/dL Estim Creat Clear Calc Estimated GFR Random Glucose (60-115) mg/dL Lactic Acid (0.5-2.0) mmol/L Calcium (8.4-10.2) mg/dL Magnesium (1.6-2.6) mg/dL Total Bilirubin (0.0-1.0) mg/dL AST (5-37) U/L ALT (0-40) U/L Alkaline Phosphatase (39-117) U/L Troponin I High Sens (<3.5-35.0) ng/L B-Natriuretic Peptide (<100) pg/mL Total Protein (6.5-8.0) g/dL Albumin (3.5-5.0) g/dL Urine Color Yellow Urine Appearance Clear Urine pH 6.5 (5.0-9.0) Ur Specific [place] 1.020 (1.005-1.025) Urine Protein Negative (Neg-Trace) mg/dL Urine Glucose (UA) Negative (Negative) mg/dL Urine Ketones Trace (Negative) mg/dL Urine Blood Negative (Negative) Urine Nitrite Negative (Negative) Ur Leukocyte Esterase Negative (Negative) Influenza Type A (PCR) (Negative) Influenza Type B (PCR) (Negative) RSV RNA Qual (PCR) (Negative) SARS-CoV-2 RNA (RT-PCR) (Negative) Independent Interpretation I performed an independent interpretation of an: Plain X-Ray Independent Historian Clinical information obtained from an independent historian. History obtained from or confirmed by: EMS Critical Care Time Critical Care Time Critical Care Time: Yes Total Critical Care Time: 75 Attestation: I have personally provided critical care time. Time includes review of lab data, radiology results, discussion with consultants, and monitoring for potential decompensation. Intervention performed as documented. Discharge Plan Discharge Clinical Impression: COVID, Pneumonia Patient Disposition: Admitted As Inpatient Prescriptions: No Action enalapril maleate 5 mg tablet 5 mg PO BID albuterol sulfate [Ventolin HFA] 90 mcg/actuation HFA aerosol inhaler 2 puff inhalation Q4H PRN (Reason: Shortness Of Breath Or Wheezing) fluticasone furoate-vilanterol [Breo Ellipta] 200-25 mcg/dose blister with device 1 ea inhalation DAILY cyanocobalamin (vitamin B-12) 1,000 mcg Tablet 1,000 mcg PO DAILY sertraline 50 mg Tablet 50 mg PO DAILY Rx Instructions: take with 100 mg tablet for total dose of 150 mg cefuroxime axetil 500 mg tablet 500 mg PO BID 14 Days Qty: 28 0RF clopidogrel [Plavix] 75 mg tablet 75 mg PO DAILY atorvastatin [Lipitor] 80 mg tablet 80 mg PO DAILY sertraline 100 mg tablet 100 mg PO DAILY famotidine 20 mg tablet 20 mg PO DAILY melatonin 3 mg capsule 3 mg PO BEDTIME PRN (Reason: Insomnia) acetaminophen [Tylenol Arthritis Pain] 650 mg tablet extended release 650 mg PO Q8H PRN (Reason: Moderate Pain (Scale Score 5-6)) Print Language: Chinese
[2024-04-19 23:16] LABS: B Type Natriuretic Peptide 87 pg/mL (<100)
[2024-04-19 23:20] LABS: Troponin-I High Sensitivity 21.8 ng/L (<3.5-35.0)
--- NOTE | 2024-04-19 23:22 | MHC.EDTECH ---
Patient urinated 200MLS of clear yellow urine,urine obtained and sent to lab,
[2024-04-19 23:25] LABS: Influenza A PCR NEGATIVE (Negative); Influenza B PCR NEGATIVE (Negative); Resp Syncy Virus RNA Qual PCR NEGATIVE (Negative); SARS COV2 PCR INHOUSE POSITIVE (Negative)
--- NOTE | 2024-04-19 23:26 | MHC.EDTECH ---
Patient's O2 sat dropped to 86% RN at bedside, placed 2L VIA NC,patient is 96% at this time,belongings list completed and copy placed in chart.
[2024-04-19] MEDS: Azithromycin 500 MG in 0.9 % Sodium Chloride 250 ML 125 MG IV (23:29)
[2024-04-19 23:37] LABS: Appearance Urine Clear; Color Urine Yellow; Glucose Urine UA Negative (Negative); Leukocyte Esterase Urine Negative (Negative); Nitrite Urine Negative (Negative); PH 6.5 (5.0-9.0); Urine Blood Negative (Negative); Urine Ketones Trace mg/dL (Negative); Urine Protein Negative (Neg-Trace)
[2024-04-20] VITALS (12 sets, daily range): BP systolic 94–135; BP diastolic 46–69; PULSE 51–101; RESP 18–24; TEMP 35.9–39.5; O2SAT 95–99; BMI 22.6
--- NOTE | 2024-04-20 00:16 | MHC.EDTECH ---
Rounds and vitals completed,temp is 103.1 RN is aware,patient is resting at this time,call hernandez in reach
--- NOTE | 2024-04-20 00:31 | MHC.EDTECH ---
Patient was repositioned in bed,vitals taken,temp 103.1 RN is aware,call hernandez in reach
[2024-04-20] MEDS: Acetaminophen 325 MG TABLET 975 MG PO (00:44)
[2024-04-20] MEDS: dexAMETHasone sod phosphate 4 MG/ML VIAL 6 MG IVPUSH (00:45)
--- NOTE | 2024-04-20 00:58 | P.HPHOSP_ITS ---
History of Present Illness Date of Service: 04/20/24 Chief Complaint: AMS This is a 83-year-old male with pertinent history of paroxysmal atrial fibrillation not on anticoagulation, hypertension, COPD not on home oxygen, peripheral arterial disease, history of prostate cancer status post radiation, coronary artery disease, gastroesophageal reflux disease, mood disorder who was sent to the emergency department for evaluation of altered mentation. Patient is resident of assisted living facility. He is a poor historian and does not know why he is in the hospital. Endorses productive cough and fevers. He was found to be confused at outside facility with fevers and productive cough. Unable to obtain review of systems. In the emergency department, imaging with retrocardiac infiltrate and patient was found to be septic. Also requiring 2 L supplemental oxygen. Patient was given IV crystalloids, steroids and empiric IV antibiotics for community-acquired pneumonia Review of Systems 2 Review of Systems: Yes Unobtainable due to mental status [facility] Medical History Status post radiation therapy Influenza A Former smoker CAD (coronary artery disease) History of prostate cancer Mood disorder GERD (gastroesophageal reflux disease) PAD (peripheral artery disease) Atrial fibrillation COPD (chronic obstructive pulmonary disease) FHx: cholecystectomy Surgical History History of appendectomy S/P trigger finger release H/O angioplasty Social History Household Members: None Housing: Apartment Do you presently have visiting nurse or other home services: No Unable to assess alcohol history related to: Unknown Alcohol intake: never Patient Tobacco Use Status: Former Tobacco user Tobacco use type: Cigarette e-Cigarette/Vaping Use: Never Used Second Hand Smoke Exposure: No Substance Use Type: Prescription Drugs Advance Directives: Yes Advance Directives on File: Yes Advance Directives Date on File: 12/01/23 Do you have a plan to hurt others: No Plan service: No Current occupational status: disabled Current occupation: Rt handed Meds Allergies Allergy/AdvReac Type Severity Reaction Status Date / Time levofloxacin [From LEVAQUIN] Allergy Unknown HIVES Verified 04/19/24 22:27 lidocaine [LIDOCAINE] AdvReac Unknown IV Verified 09/03/24 22:27 SENSITIVE nitroglycerin AdvReac BP Drop Verified 04/19/24 22:27 tamsulosin AdvReac BP Drop Verified 04/19/24 22:27 Active Medications: Current Medications Acetaminophen (Acetaminophen 325 Mg Tablet) 650 mg PO Q6H PRN PRN Reason: Pain, Mild (Pain Scale 1-3), fever or headache Calcium Carbonate (Calcium Carbonate 750 Mg Tab.Chew) 750 mg PO Q4H PRN PRN Reason: Heartburn Enoxaparin Sodium (Enoxaparin Sodium 40 Mg/0.4 Ml Syringe) 40 mg SUBCUT Q24H [facility] Azithromycin 500 mg/ Sodium (Chloride) 250 mls @ 125 mls/hr IV ONCE ONE Stop: 04/20/24 01:14 Last Admin: 04/19/24 23:29 Dose: 125 mls/hr Magnesium Hydroxide (Milk Of Magnesia 30 Ml Oral.Susp) 30 ml PO DAILY PRN PRN Reason: Constipation Melatonin (Melatonin 3 Mg Tablet) 6 mg PO BEDTIME PRN PRN Reason: Insomnia Sodium Chloride (0.9 % Sodium Chloride Flush 3 Ml Syringe) 3 ml IVFLUSH QSHIFT [facility] Home Medications ?Medication ?Instructions ?Recorded ?Confirmed ?Last Taken ?Type acetaminophen 650 mg 650 mg PO Q8H PRN Moderate Pain 08/28/21 12/01/23 Unknown History tablet,extended release (Tylenol (Scale Score 5-6) Arthritis Pain) atorvastatin 80 mg tablet (Lipitor) 80 mg PO DAILY 08/28/21 12/01/23 Unknown History clopidogrel 75 mg tablet (Plavix) 75 mg PO DAILY 08/28/21 12/01/23 Unknown History famotidine 20 mg tablet 20 mg PO DAILY 08/28/21 12/01/23 Unknown History melatonin 3 mg capsule 3 mg PO BEDTIME PRN Insomnia 08/28/21 12/01/23 Unknown History sertraline 100 mg tablet 100 mg PO DAILY 08/28/21 12/01/23 Unknown History albuterol sulfate 90 mcg/actuation 2 puff inhalation Q4H PRN 11/26/23 12/01/23 Unknown History aerosol inhaler (Ventolin HFA) Shortness Of Breath Or Wheezing enalapril maleate 5 mg tablet 5 mg PO BID 11/26/23 12/01/23 Unknown History fluticasone furoate 200 1 ea inhalation DAILY 11/26/23 12/01/23 Unknown History mcg-vilanterol 25 mcg/dose inhalation powder (Breo Ellipta) cyanocobalamin (vitamin B-12) 1,000 mcg PO DAILY 12/01/23 12/01/23 Unknown History 1,000 mcg tablet sertraline 50 mg tablet 50 mg PO DAILY 12/01/23 12/01/23 Unknown History Physical Exam 2 Vital Signs and Narrative: Vital Signs: Last Vital Signs Temp 103.1 F H 04/20/24 00:30 Pulse 96 04/20/24 00:30 Resp 24 H 04/20/24 00:30 BP 108/53 L 04/20/24 00:30 Pulse Ox 97 04/20/24 00:30 O2 Del Method Nasal Cannula 04/20/24 00:30 O2 Flow Rate 2 04/20/24 00:30 Oxygen Flow Rate 2 04/19/24 22:21 BMI result Body Mass Index 22.7 Elderly male lying in bed in mild distress on supplemental oxygen Neck supple, no JVD Regular rate and rhythm, S1-S2 heard Bilateral crackles present Abdomen soft nontender, no guarding, no rigidity Patient is awake, alert and oriented to self, disoriented to place, time and person ; no focal motor deficit Psych: Normal mood No pedal edema Results Labs 04/19/24 22:48 04/19/24 22:48 Labs: Laboratory Results - last 24 hr 04/19/24 04/19/24 04/19/24 22:44 22:48 22:50 MCV 91.5 MCH 30.3 MCHC 33.1 RDW 15.6 Plt Count 139 L MPV 9.3 L Immature Gran % (Auto) 0.5 H Neut % (Auto) 86.9 H Lymph % (Auto) 4.1 L [place] % (Auto) 8.2 Eos % (Auto) 0.3 Baso % (Auto) 0.0 Lymph # (Auto) 0.3 L [place] # (Auto) 0.5 Eos # (Auto) 0.0 Baso # (Auto) 0.0 Abs Immat Gran (auto) 0.03 Absolute Neuts (auto) 5.3 Absolute Nucleated RBC 0.000 Nucleated RBC % (auto) 0.0 PT 13.4 H INR 1.1 Anion Gap 14 Estim Creat Clear Calc 63.4 Estimated GFR > 60 Random Glucose 146 H Lactic Acid 1.0 Calcium 8.9 Magnesium 1.7 Total Bilirubin 0.5 AST 20 ALT 19 Alkaline Phosphatase 64 Troponin I High Sens 21.8 B-Natriuretic Peptide 87 Total Protein 6.8 Albumin 3.7 Urine Color Urine Appearance Urine pH Ur Specific [place] Urine Protein Urine Glucose (UA) Urine Ketones Urine Blood Urine Nitrite Ur Leukocyte Esterase Influenza Type A (PCR) NEGATIVE Influenza Type B (PCR) NEGATIVE RSV RNA Qual (PCR) NEGATIVE SARS-CoV-2 RNA (RT-PCR) POSITIVE A 04/19/24 23:22 MCV MCH MCHC RDW Plt Count MPV Immature Gran % (Auto) Neut % (Auto) Lymph % (Auto) [place] % (Auto) Eos % (Auto) Baso % (Auto) Lymph # (Auto) [place] # (Auto) Eos # (Auto) Baso # (Auto) Abs Immat Gran (auto) Absolute Neuts (auto) Absolute Nucleated RBC Nucleated RBC % (auto) PT INR Anion Gap Estim Creat Clear Calc Estimated GFR Random Glucose Lactic Acid Calcium Magnesium Total Bilirubin AST ALT Alkaline Phosphatase Troponin I High Sens B-Natriuretic Peptide Total Protein Albumin Urine Color Yellow Urine Appearance Clear Urine pH 6.5 Ur Specific [place] 1.020 Urine Protein Negative Urine Glucose (UA) Negative Urine Ketones Trace Urine Blood Negative Urine Nitrite Negative Ur Leukocyte Esterase Negative Influenza Type A (PCR) Influenza Type B (PCR) RSV RNA Qual (PCR) SARS-CoV-2 RNA (RT-PCR) Imaging Radiologist's Impressions: Impressions Chest X-Ray 04/19/24 22:52 IMPRESSION: 1. Suggestion of mild retrocardiac infiltrates, recommend evaluation with lateral radiographic view of the chest. 2. Nonspecific biapical nodular opacities. Recommend follow-up with CT chest 3 months. 3. Background of chronic diffuse interstitial thickening. Electronically signed by: Mojgan Gutiérrez MD 04/20/2024 12:21 AM EDT Assessment and Plan (1) Pneumonia: Status: Acute (2) COVID: Status: Acute Plan This is a 83-year-old male with pertinent history of paroxysmal atrial fibrillation not on anticoagulation, hypertension, COPD not on home oxygen, peripheral arterial disease, history of prostate cancer status post radiation, coronary artery disease, gastroesophageal reflux disease, mood disorder who was sent to the emergency department for evaluation of altered mentation. #. Acute hypoxemic respiratory failure and sepsis due to COVID-19 infection with bacterial superinfection: Will admit patient with supplemental oxygen. Resuscitated with IV crystalloids. Lactic acid and blood culture obtained. Initiating empiric IV ceftriaxone and azithromycin. Sputum culture pending #. Acute metabolic encephalopathy in the setting of above #. Paroxysmal atrial fibrillation: Rate controlled in the ER. ?Not on anticoagulation #. COPD: No exacerbation during admission. Continue home inhalers #. Mood disorder: Continue home mood stabilizers #. CAD/peripheral vascular disease: On Plavix and high-intensity statin #. Hypertension: Hold antihypertensives in the setting of sepsis. Resume as appropriate Med rec pending DVT prophylaxis: Lovenox DNR/DNI Admit as inpatient and will require two night minimum hospital stay for supplemental oxygen, IV antibiotics (as above), which is not possible in a lesser acute setting. Quality Stroke Does the patient have a stroke diagnosis?: No VTE Prior VTE?: No VTE Risk Level:: Medical - moderate - high VTE Device Contraindication: Treatment Not Indicated VTE Drug Contraindication: N/A - Med Ordered
--- NOTE | 2024-04-20 01:07 | MHC.EDTECH ---
Patient placed in hospital bed for comfort,patient is resting quietly,call hernandez in reach,bed alarm on for safety
--- NOTE | 2024-04-20 01:08 | PC.NURSE ---
T/W spoke to staff at [facility] and updated staff with plan of care.
[2024-04-20] MEDS: Enoxaparin Sodium 40 MG/0.4 ML SYRINGE SUBCUT (01:33)
--- NOTE | 2024-04-20 04:07 | MHC.EDTECH ---
Hourly rounds and vitals completed,BP is low 97/46,RN is aware,patient is sleeping ,bed alarm collections attorney hernandez in reach
[2024-04-20 05:01] LABS: Basophils Percent Auto 0.1 % (0-2); Hematocrit 33.6 % (42.0-52.0); Hemoglobin 10.8 g/dl (14.0-18.0); Imm Gran Abs Auto 0.03 X10*3/uL (0.00-0.03); Imm Gran Pct Auto 0.4 % (0.0-0.4); Lymphocytes Absolute Auto 0.3 X10*3/uL (1.2-4.9); Lymphocytes Percent Auto 4.2 % (20-40); MANUAL DIFF FLAG SCAN; Mean Corpuscular HGB Conc 32.1 g/dl (31.0-36.0); Mean Corpuscular Volume 93.3 fL (80.0-98.0); Mean Platelet Volume 9.5 fL (9.4-12.4); Monocytes Absolute Auto 0.4 X10*3/uL (0.1-1.2); Monocytes Percent Auto 4.9 % (2-11); Neutrophils Absolute Auto 7.2 x10*3/uL (2.0-8.3); Neutrophils Percent Auto 90.4 % (45-73); Platelet Count 121 X10*3/uL (160-400); Red Cell Distribution Width 15.6 % (11.0-16.0); SCAN SMEAR FLAG 1; White Blood Count 7.9 X10*3/uL (4.8-10.8)
[2024-04-20 05:14] LABS: Anion Gap 12 (12-20); Blood Urea Nitrogen 18 mg/dL (9-16); Calcium 8.3 mg/dL (8.4-10.2); Carbon Dioxide 22 mmol/L (22-29); Chloride 107 mmol/L (96-108); Creatinine Clr Calc Pharmacy 67.6; Estimated Glomerular Filt Rate > 60; Glucose Random 154 mg/dL (60-115); Potassium 3.4 mmol/L (3.3-5.1); Sodium 138 mmol/L (135-145)
[2024-04-20 05:30] LABS: SLIDE REVIEW VERIFIED
--- NOTE | 2024-04-20 05:32 | PC.NURSE ---
Report given to overflow RN, Pt will be transported in hospital bed.
--- NOTE | 2024-04-20 06:12 | MHC.EDTECH ---
Hourly rounds and vitals completed,continuous rectal probe removed at this time,patient is being moved to overflow ,emptied 200MLS of yellow urine,patient was repositioned to comfort.
--- NOTE | 2024-04-20 08:00 | PC.NURSE ---
[place] catheter checked for functionality and placement.
--- NOTE | 2024-04-20 08:10 | PHA.MEDREC ---
Addendum entered by Louisa Jim RPh 04/20/24 08:15: Reviewed by [facility] Original Note: Pharmacy Consult ? Medication Reconciliation Pharmacy has completed the medication reconciliation. Confirmed med rec with list from [facility].
--- NOTE | 2024-04-20 08:45 | PC.NURSE ---
Pt. repositioned in bed for comfort. Denies concerns or complaints at this time. Call light within reach.
--- NOTE | 2024-04-20 09:53 | MHC.CM.PN ---
IMM 04/20/24, signed by son, Ihsan, HCP. Pt lives at [facility]. He is able to ambulate with a cane and is independent with assistance to give him his medications. HCP lists his , Roseanne, she 2 weeks ago, and his son Ihsan. He has been to [facility] for STR twice in the past, and had VNA services, son cannot recall which VNA. He is a , [facility] PCP is confirmed: Ijeoma Whaley. Transportation at DC will be son or BLS to STR. CM to follow and assist with DC plan.
[2024-04-20] MEDS: dexAMETHasone 6 MG TABLET PO (09:58)
--- NOTE | 2024-04-20 09:58 | PC.NURSE ---
Pt. medicated per OCT and provided water. Tolerated med. well. Son at bedside visiting at this time. Pt. does not offer any concerns or complaints at this time. Call light within reach. Plan of care ongoing.
--- NOTE | 2024-04-20 11:53 | PM.EVENT ---
Event Note Date of Service: 04/20/24 Event Note: Seen and evaluated this morning looks more alert and interactive weaned Off O2 to start diet continue current therapy follow O2 sat and vitals Pending cultures Time Spent With Patient Time: Total time managing care of this patient today ____ minutes.
--- NOTE | 2024-04-20 12:10 | PC.NURSE ---
Pt. repositioned and boosted up in bed for comfort. Call light within reach
[2024-04-20] MEDS: Azithromycin 500 MG in 0.9 % Sodium Chloride 250 ML 125 MG IV (20:33)
[2024-04-20] MEDS: cefTRIAXone sodium 1 GM in 0.9 % Sodium Chloride 50 ML IV (20:34)
[2024-04-20] MEDS: 0.9 % Sodium Chloride Flush 3 ML SYRINGE IVFLUSH (20:34)
[2024-04-20] MEDS: Throat Lozenge, Medicated LOZENGE 1 LOZENGE MUCOUS MEM (22:31)
[2024-04-21] MEDS: Enoxaparin Sodium 40 MG/0.4 ML SYRINGE SUBCUT (00:13)
[2024-04-21 03:40] VITALS: BP 133/59; PULSE 59; RESP 19; TEMP 36.6; O2SAT 97
[2024-04-21 07:22] VITALS: BP 132/60; PULSE 59; RESP 18; TEMP 36.7; O2SAT 96
[2024-04-21] MEDS: dexAMETHasone 4 MG TABLET PO (07:55)
[2024-04-21 08:03] LABS: Hematocrit 32.9 % (42.0-52.0); Hemoglobin 10.8 g/dl (14.0-18.0); Mean Corpuscular HGB Conc 32.8 g/dl (31.0-36.0); Mean Corpuscular Hemoglobin 30.4 pg (27.0-33.0); Mean Corpuscular Volume 92.7 fL (80.0-98.0); Mean Platelet Volume 9.9 fL (9.4-12.4); Platelet Count 127 X10*3/uL (160-400); Red Blood Count 3.55 X10*6/uL (4.60-5.80); Red Cell Distribution Width 15.5 % (11.0-16.0); White Blood Count 9.4 X10*3/uL (4.8-10.8)
[2024-04-21 08:08] LABS: Anion Gap 12 (12-20); Blood Urea Nitrogen 23 mg/dL (9-16); Calcium 8.5 mg/dL (8.4-10.2); Carbon Dioxide 20 mmol/L (22-29); Chloride 109 mmol/L (96-108); Creatinine Clr Calc Pharmacy 68.2; Estimated Glomerular Filt Rate > 60; Glucose Random 93 mg/dL (60-115); Sodium 137 mmol/L (135-145)
[2024-04-21] MEDS: Cyanocobalamin (Vitamin B-12) 1,000 MCG TABLET 1000 MCG PO (10:17)
[2024-04-21] MEDS: Famotidine 20 MG TABLET PO (10:17)
[2024-04-21] MEDS: Clopidogrel Bisulfate 75 MG TABLET PO (10:17)
[2024-04-21] MEDS: Sertraline HCL 100 MG TABLET PO (10:17)
[2024-04-21] MEDS: Sertraline HCL 50 MG TABLET PO (10:17)
[2024-04-21 11:04] VITALS: BP 149/69; PULSE 70; RESP 18; TEMP 36.6; O2SAT 94
[2024-04-21] MEDS: Fluticasone/Vilanterol 200/25 BLST.W.DEV 1 PUFF INHALE (11:12)
[2024-04-21 11:17] VITALS: PULSE 74; RESP 18; O2SAT 95
[2024-04-21] MEDS: 0.9 % Sodium Chloride Flush 3 ML SYRINGE IVFLUSH ×3 (12:41→21:41)
--- NOTE | 2024-04-21 14:40 | P.PNIM_ITS ---
Subjective Subjective Date of Service: 04/21/24 Interval History: seen and evaluated this morning improving breathing and strength no other overnight events Review of Systems Review of Systems: Yes all other systems are reviewed and are negative Physical Exam 2 Vital Signs: Vital Signs: Last Vital Signs Temp 97.8 F 04/21/24 11:04 Pulse 74 04/21/24 11:17 Resp 18 04/21/24 11:17 BP 149/69 H 04/21/24 11:04 Pulse Ox 94 04/21/24 11:04 O2 Del Method Room Air 04/21/24 11:04 O2 Flow Rate 2 04/20/24 04:00 Oxygen Flow Rate 2 04/19/24 22:21 BMI result Body Mass Index 22.6 Const: Other: Constitutional : Awake, interactive, not in distress Neck : Normal inspection, Supple Cardiovascular : RRR, no JVP, no lower extremity edema Respiratory : good bilateral air entry, basal fine crackles, no wheezes Gastrointestinal: soft, lax, Normal bowel sounds, Non tender Skin : Warm, Dry Neurological : Alert & oriented x3, No focal deficit Objective Data Active Medications Acetaminophen (Acetaminophen 325 Mg Tablet) 650 mg PO Q6H PRN PRN Reason: Pain, Mild (Pain Scale 1-3), fever or headache Albuterol Sulfate (Albuterol Sulfate 90 Mcg 8 Gm Inhaler) 2 puff INHALE Q4H PRN PRN Reason: Shortness Of Breath Or Wheezing Atorvastatin Calcium (Atorvastatin Calcium 80 Mg Tablet) 80 mg PO BEDTIME [facility] Benzocaine (Throat Lozenge, Medicated Lozenge) 1 lozenge MUCOUS MEM Q2H PRN PRN Reason: Sore Throat Last Admin: 04/20/24 22:31 Dose: 1 lozenge Documented By: AWA Calcium Carbonate (Calcium Carbonate 750 Mg Tab.Chew) 750 mg PO Q4H PRN PRN Reason: Heartburn Clopidogrel Bisulfate (Clopidogrel Bisulfate 75 Mg Tablet) 75 mg PO DAILY [facility] Last Admin: 04/21/24 10:17 Dose: 75 mg Documented By: GARRETT Cyanocobalamin (Cyanocobalamin (Vitamin B-12) 1,000 Mcg Tablet) 1,000 mcg PO DAILY [facility] Last Admin: 04/21/24 10:17 Dose: 1,000 mcg Documented By: GARRETT Dexamethasone (Dexamethasone 4 Mg Tablet) 4 mg PO DAILY [facility] Last Admin: 04/21/24 07:55 Dose: 4 mg Documented By: GARRETT Enalapril Maleate (Enalapril Maleate 5 Mg Tablet) 5 mg PO BID [facility]; Protocol Last Admin: 04/21/24 12:40 Dose: 5 mg Documented By: GARRETT Enoxaparin Sodium (Enoxaparin Sodium 40 Mg/0.4 Ml Syringe) 40 mg SUBCUT Q24H [facility] Last Admin: 04/21/24 00:13 Dose: 40 mg Documented By: AWA Famotidine (Famotidine 20 Mg Tablet) 20 mg PO DAILY [facility] Last Admin: 04/21/24 10:17 Dose: 20 mg Documented By: GARRETT Fluticasone/Vilanterol (Fluticasone/Vilanterol 200/25 Blst.W.Dev) 1 puff INHALE RDAILY [facility] Last Admin: 04/21/24 11:12 Dose: 1 puff Documented By: MAD[place] Ceftriaxone Sodium 1 gm/ (Sodium Chloride) 50 mls @ 100 mls/hr IV Q24H [facility] Last Infusion: 04/20/24 21:05 Dose: Infused Documented By: AWA Azithromycin 500 mg/ Sodium (Chloride) 250 mls @ 125 mls/hr IV Q24H [facility] Last Infusion: 04/20/24 22:30 Dose: Infused Documented By: AWA Magnesium Hydroxide (Milk Of Magnesia 30 Ml Oral.Susp) 30 ml PO DAILY PRN PRN Reason: Constipation Melatonin (Melatonin 3 Mg Tablet) 3 mg PO BEDTIME [facility] Ondansetron HCl (Ondansetron Hcl 4 Mg/2 Ml Vial) 4 mg IVPUSH Q8H PRN PRN Reason: Nausea and Vomiting Sertraline HCl (Sertraline Hcl 50 Mg Tablet) 50 mg PO DAILY [facility] Last Admin: 04/21/24 10:17 Dose: 50 mg Documented By: GARRETT Sertraline HCl (Sertraline Hcl 100 Mg Tablet) 100 mg PO DAILY [facility] Last Admin: 04/21/24 10:17 Dose: 100 mg Documented By: GARRETT Sodium Chloride (0.9 % Sodium Chloride Flush 3 Ml Syringe) 3 ml IVFLUSH QSHIFT [facility] Last Admin: 04/21/24 12:41 Dose: 3 ml Documented By: GARRETT Labs 04/21/24 07:06 04/21/24 07:06 Labs: Laboratory Results - last 24 hr 04/21/24 07:06 MCV 92.7 MCH 30.4 MCHC 32.8 RDW 15.5 Plt Count 127 L MPV 9.9 Absolute Nucleated RBC 0.000 Nucleated RBC % (auto) 0.0 Anion Gap 12 Estim Creat Clear Calc 68.2 Estimated GFR > 60 Random Glucose 93 Calcium 8.5 Microbiology Microbiology Results: Microbiology 04/19/24 22:48 Blood Culture - Preliminary Blood - Venous No growth after 24 hours. 04/19/24 22:48 Blood Culture - Preliminary Blood - Venous No growth after 24 hours. Assessment and Plan (1) Pneumonia: Status: Acute (2) COVID: Status: Acute (3) Left lower lobe pulmonary infiltrate: Status: Acute (4) Acute respiratory failure with hypoxia: Status: Acute (5) Toxic metabolic encephalopathy: Status: Acute Plan This is a 83-year-old male with pertinent history of paroxysmal atrial fibrillation not on anticoagulation, hypertension, COPD not on home oxygen, peripheral arterial disease, history of prostate cancer status post radiation, coronary artery disease, gastroesophageal reflux disease, mood disorder who was sent to the emergency department for evaluation of altered mentation. # Acute hypoxemic respiratory failure and sepsis due to COVID-19 infection with bacterial superinfection Weaned down supplemental oxygen. DC IV crystalloids Pending blood culture Continue IV ceftriaxone and azithromycin Sputum culture pending # Acute metabolic encephalopathy in the setting of infection improved to baseline # Paroxysmal atrial fibrillation Rate controlled. Not on anticoagulation # COPD No exacerbation during admission. Continue home inhalers # Mood disorder Continue home mood stabilizers # CAD/peripheral vascular disease On Plavix and high-intensity statin # Hypertension Continue Home medictions DVT prophylaxis: Lovenox DNR/DNI Admit as inpatient and will require overnight hospital stay for supplemental oxygen, IV antibiotics (as above), which is not possible in a lesser acute setting pending final cultures result Quality Stroke Does the patient have a stroke diagnosis?: No VTE Prior VTE?: No VTE Risk Level:: Medical - moderate - high VTE Device Contraindication: Treatment Not Indicated VTE Drug Contraindication: N/A - Med Ordered
[2024-04-21 15:11] VITALS: BP 132/55; PULSE 70; RESP 18; TEMP 36.6; O2SAT 96
[2024-04-21 20:00] VITALS: BP 142/65; PULSE 68; RESP 18; TEMP 36.6; O2SAT 98
[2024-04-21] MEDS: Azithromycin 500 MG in 0.9 % Sodium Chloride 250 ML 125 MG IV (21:40)
[2024-04-21] MEDS: cefTRIAXone sodium 1 GM in 0.9 % Sodium Chloride 50 ML IV (21:40)
[2024-04-21] MEDS: Atorvastatin Calcium 80 MG TABLET PO (21:41)
[2024-04-21] MEDS: Melatonin 3 MG TABLET PO (21:41)
[2024-04-22] VITALS (10 sets, daily range): BP systolic 129–160; BP diastolic 59–72; PULSE 52–86; RESP 18–20; TEMP 36.1–37.3; O2SAT 95–99
[2024-04-22] MEDS: Enoxaparin Sodium 40 MG/0.4 ML SYRINGE SUBCUT (00:59)
[2024-04-22] MEDS: Fluticasone/Vilanterol 200/25 BLST.W.DEV 1 PUFF INHALE (07:43)
[2024-04-22] MEDS: Cyanocobalamin (Vitamin B-12) 1,000 MCG TABLET 1000 MCG PO (07:55)
[2024-04-22] MEDS: Clopidogrel Bisulfate 75 MG TABLET PO (07:56)
[2024-04-22] MEDS: Sertraline HCL 100 MG TABLET PO (07:56)
[2024-04-22] MEDS: Famotidine 20 MG TABLET PO (07:56)
[2024-04-22] MEDS: dexAMETHasone 4 MG TABLET PO (07:56)
[2024-04-22] MEDS: 0.9 % Sodium Chloride Flush 3 ML SYRINGE IVFLUSH ×3 (07:56→20:15)
[2024-04-22] MEDS: Acetaminophen 325 MG TABLET 650 MG PO (08:37)
[2024-04-22] MEDS: Benzonatate 100 MG CAPSULE PO ×3 (10:47→20:14)
[2024-04-22] MEDS: Butalb/Acetamin/Caff 50/325/40 TABLET 1 TAB PO (10:47)
[2024-04-22] MEDS: guaiFENesin DM 600/30 1 TAB TAB.ER.12H PO ×2 (10:48→20:15)
[2024-04-22] MEDS: Sertraline HCL 50 MG TABLET PO (13:28)
--- NOTE | 2024-04-22 14:23 | HO.PM.IMPN ---
Subjective Subjective Date of Service: 04/22/24 Interval History: seen and evaluated this morning complaining of congestion and cough no other overnight events Review of Systems Review of Systems: Yes all other systems are reviewed and are negative Physical Exam Vital Signs: Vital Signs: Last Vital Signs Temp 98.0 F 04/22/24 11:42 Pulse 67 04/22/24 11:42 Resp 18 04/22/24 11:42 BP 137/69 04/22/24 11:42 Pulse Ox 97 04/22/24 11:42 O2 Del Method Room Air 04/22/24 11:42 O2 Flow Rate 2 04/20/24 04:00 Oxygen Flow Rate 2 04/19/24 22:21 BMI result Body Mass Index 22.6 Const: Other: Constitutional : Awake, interactive, not in distress Neck : Normal inspection, Supple Cardiovascular : RRR, no JVP, no lower extremity edema Respiratory : good bilateral air entry, basal fine crackles, no wheezes Gastrointestinal: soft, lax, Normal bowel sounds, Non tender Skin : Warm, Dry Neurological : Alert & oriented x3, No focal deficit Objective Data Active Medications Acetaminophen (Acetaminophen 325 Mg Tablet) 650 mg PO Q6H PRN PRN Reason: Pain, Mild (Pain Scale 1-3), fever or headache Last Admin: 04/22/24 08:37 Dose: 650 mg Documented By: GARRETT Acetaminophen/Butalbital/Caffeine (Butalb/Acetamin/Caff 50/325/40 Tablet) 1 tab PO Q4H PRN PRN Reason: Headache Albuterol Sulfate (Albuterol Sulfate 90 Mcg 8 Gm Inhaler) 2 puff INHALE Q4H PRN PRN Reason: Shortness Of Breath Or Wheezing Atorvastatin Calcium (Atorvastatin Calcium 80 Mg Tablet) 80 mg PO BEDTIME [facility] Last Admin: 04/21/24 21:41 Dose: 80 mg Documented By: AWA Benzocaine (Throat Lozenge, Medicated Lozenge) 1 lozenge MUCOUS MEM Q2H PRN PRN Reason: Sore Throat Last Admin: 04/20/24 22:31 Dose: 1 lozenge Documented By: AWA Benzonatate (Benzonatate 100 Mg Capsule) 100 mg PO TID [facility] Last Admin: 04/22/24 10:47 Dose: 100 mg Documented By: GARRETT Calcium Carbonate (Calcium Carbonate 750 Mg Tab.Chew) 750 mg PO Q4H PRN PRN Reason: Heartburn Clopidogrel Bisulfate (Clopidogrel Bisulfate 75 Mg Tablet) 75 mg PO DAILY [facility] Last Admin: 04/22/24 07:56 Dose: 75 mg Documented By: GARRETT Cyanocobalamin (Cyanocobalamin (Vitamin B-12) 1,000 Mcg Tablet) 1,000 mcg PO DAILY [facility] Last Admin: 04/22/24 07:55 Dose: 1,000 mcg Documented By: GARRETT Dexamethasone (Dexamethasone 4 Mg Tablet) 4 mg PO DAILY [facility] Last Admin: 04/22/24 07:56 Dose: 4 mg Documented By: GARRETT Enalapril Maleate (Enalapril Maleate 5 Mg Tablet) 5 mg PO BID [facility]; Protocol Last Admin: 04/22/24 07:56 Dose: 5 mg Documented By: GARRETT Enoxaparin Sodium (Enoxaparin Sodium 40 Mg/0.4 Ml Syringe) 40 mg SUBCUT Q24H [facility] Last Admin: 04/22/24 00:59 Dose: 40 mg Documented By: AWA Famotidine (Famotidine 20 Mg Tablet) 20 mg PO DAILY [facility] Last Admin: 04/22/24 07:56 Dose: 20 mg Documented By: GARRETT Fluticasone/Vilanterol (Fluticasone/Vilanterol 200/25 Blst.W.Dev) 1 puff INHALE RDAILY [facility] Last Admin: 04/22/24 07:43 Dose: 1 puff Documented By: TORIN Guaifenesin/Dextromethorphan (Guaifenesin Dm 600/30 1 Tab Tab.Er.12h) 1 tab PO BID [facility] Last Admin: 04/22/24 10:48 Dose: 1 tab Documented By: GARRETT Ceftriaxone Sodium 1 gm/ (Sodium Chloride) 50 mls @ 100 mls/hr IV Q24H [facility] Last Infusion: 04/21/24 22:24 Dose: Infused Documented By: AWA Azithromycin 500 mg/ Sodium (Chloride) 250 mls @ 125 mls/hr IV Q24H [facility] Last Infusion: 04/21/24 23:51 Dose: Infused Documented By: AWA Magnesium Hydroxide (Milk Of Magnesia 30 Ml Oral.Susp) 30 ml PO DAILY PRN PRN Reason: Constipation Melatonin (Melatonin 3 Mg Tablet) 3 mg PO BEDTIME [facility] Last Admin: 04/21/24 21:41 Dose: 3 mg Documented By: AWA Ondansetron HCl (Ondansetron Hcl 4 Mg/2 Ml Vial) 4 mg IVPUSH Q8H PRN PRN Reason: Nausea and Vomiting Sertraline HCl (Sertraline Hcl 50 Mg Tablet) 50 mg PO DAILY [facility] Last Admin: 04/22/24 13:28 Dose: 50 mg Documented By: GARRETT Sertraline HCl (Sertraline Hcl 100 Mg Tablet) 100 mg PO DAILY [facility] Last Admin: 04/22/24 07:56 Dose: 100 mg Documented By: GARRETT Sodium Chloride (0.9 % Sodium Chloride Flush 3 Ml Syringe) 3 ml IVFLUSH QSHIFT [facility] Last Admin: 04/22/24 07:56 Dose: 3 ml Documented By: GARRETT Labs 04/21/24 07:06 04/21/24 07:06 Microbiology Microbiology Results: Microbiology 04/19/24 22:48 Blood Culture - Preliminary Blood - Venous No growth after 48 hours. 04/19/24 22:48 Blood Culture - Preliminary Blood - Venous No growth after 48 hours. Assessment and Plan (1) Toxic metabolic encephalopathy: Status: Acute (2) Acute respiratory failure with hypoxia: Status: Acute (3) Pneumonia: Status: Acute (4) Physical deconditioning: Status: Acute Plan This is a 83-year-old male with pertinent history of paroxysmal atrial fibrillation not on anticoagulation, hypertension, COPD not on home oxygen, peripheral arterial disease, history of prostate cancer status post radiation, coronary artery disease, gastroesophageal reflux disease, mood disorder who was sent to the emergency department for evaluation of altered mentation. # Acute hypoxemic respiratory failure and sepsis due to COVID-19 infection with bacterial superinfection Weaned down supplemental oxygen. DC IV crystalloids negative sputum and blood culture add cough medicine Continue IV ceftriaxone and azithromycin # Acute metabolic encephalopathy in the setting of infection improved to baseline # PHysical deconditioning PT rec SNF placement # Paroxysmal atrial fibrillation Rate controlled. Not on anticoagulation # COPD No exacerbation during admission. Continue home inhalers # Mood disorder Continue home mood stabilizers # CAD/peripheral vascular disease On Plavix and high-intensity statin # Hypertension Continue Home medictions DVT prophylaxis: Lovenox DNR/DNI Admit as inpatient and will require overnight hospital stay for IV antibiotics pending clinical improvement and placement to SNF Quality Stroke Does the patient have a stroke diagnosis?: No VTE Prior VTE?: No VTE Risk Level:: Medical - moderate - high VTE Device Contraindication: Treatment Not Indicated VTE Drug Contraindication: N/A - Med Ordered
--- NOTE | 2024-04-22 15:27 | MHC.CM.PN ---
PT rec STR for pt. CM discuss this with pt. and he would like to go to [facility], and they are not able to accept because they are full. He was accepted at [facility], and [facility], he does not accept the bed at those places. He asked for a referral to be sent to [facility], referral sent, they do not have a bed. Pt would now like to go home with home care services, referrals will be submitted for VNA services. Cm also called nurse at [facility] to ask about increasing his home care services there, awaiting return call.
[2024-04-22] MEDS: Atorvastatin Calcium 80 MG TABLET PO (20:14)
[2024-04-22] MEDS: Melatonin 3 MG TABLET PO (20:15)
[2024-04-22] MEDS: Throat Lozenge, Medicated LOZENGE 1 LOZENGE MUCOUS MEM (20:16)
[2024-04-22] MEDS: cefTRIAXone sodium 1 GM in 0.9 % Sodium Chloride 50 ML IV (21:38)
[2024-04-22] MEDS: Azithromycin 500 MG in 0.9 % Sodium Chloride 250 ML 125 MG IV (22:13)
[2024-04-23] MEDS: Enoxaparin Sodium 40 MG/0.4 ML SYRINGE SUBCUT (00:44)
[2024-04-23 04:00] VITALS: BP 147/77; PULSE 60; RESP 18; TEMP 36.4; O2SAT 99
[2024-04-23] MEDS: Fluticasone/Vilanterol 200/25 BLST.W.DEV 1 PUFF INHALE (07:25)
[2024-04-23 07:26] VITALS: PULSE 60; RESP 18; O2SAT 98
[2024-04-23 07:59] VITALS: BP 167/74; PULSE 64; RESP 18; TEMP 36.4; O2SAT 96
[2024-04-23] MEDS: dexAMETHasone 4 MG TABLET PO (09:03)
[2024-04-23] MEDS: Sertraline HCL 100 MG TABLET PO (09:03)
[2024-04-23] MEDS: Clopidogrel Bisulfate 75 MG TABLET PO (09:03)
[2024-04-23] MEDS: Cyanocobalamin (Vitamin B-12) 1,000 MCG TABLET 1000 MCG PO (09:03)
[2024-04-23] MEDS: Benzonatate 100 MG CAPSULE PO (09:03)
[2024-04-23] MEDS: guaiFENesin DM 600/30 1 TAB TAB.ER.12H PO (09:03)
[2024-04-23] MEDS: 0.9 % Sodium Chloride Flush 3 ML SYRINGE IVFLUSH (09:03)
[2024-04-23] MEDS: Sertraline HCL 50 MG TABLET PO (09:03)
[2024-04-23] MEDS: Famotidine 20 MG TABLET PO (09:03)
--- NOTE | 2024-04-23 09:43 | MHC.CM.PN ---
Addendum entered by Agueda Camarillo RN 04/23/24 10:18: PT WILL DC HOME TO [facility] FOR [facility] PT, PT WILL CALL SON TO ARRANGE TRANSPORT LATER THIS AFTERNOON. Original Note: imm 04/23/24, cm met w/covid+ pt to determine if he will go to [facility] vs home w/services, pt reports he needs to discuss this w/his son and cm will follow-up w/pt via cell phone [phone] 30min.
--- NOTE | 2024-04-23 11:00 | P.DS_ITS ---
DS: Providers Provider Date of Service: 04/23/24 Date of admission: 04/20/24 00:56 Date of discharge: 04/23/24 Primary care physician: Ijeoma Whaley MD DS: Diagnosis Discharge Diagnosis (1) Toxic metabolic encephalopathy: Status: Acute (2) Acute respiratory failure with hypoxia: Status: Acute (3) Pneumonia: Status: Acute (4) Physical deconditioning: Status: Acute (5) COVID: Status: Acute DS: Summary Hospital Course Hospital Course: Admission note HPI This is a 83-year-old male with pertinent history of paroxysmal atrial fibrillation not on anticoagulation, hypertension, COPD not on home oxygen, peripheral arterial disease, history of prostate cancer status post radiation, coronary artery disease, gastroesophageal reflux disease, mood disorder who was sent to the emergency department for evaluation of altered mentation. Patient is resident of assisted living facility. He is a poor historian and does not know why he is in the hospital. Endorses productive cough and fevers. He was found to be confused at outside facility with fevers and productive cough. Unable to obtain review of systems. In the emergency department, imaging with retrocardiac infiltrate and patient was found to be septic. Also requiring 2 L supplemental oxygen. Patient was given IV crystalloids, steroids and empiric IV antibiotics for community-acquired pneumonia. Hospital course # Acute hypoxemic respiratory failure and sepsis due to COVID-19 infection with bacterial superinfection Treated with IV fluids, IV Antibiotics of Ceftriaxone and Azithromycin along with Dexamethasone. The patient was weaned down supplemental oxygen to room air and was able to participate with physical therapy who recommended short term rehab. negative sputum and blood culture. To be discharged on Azithromycin and Ceftin for 1 week and Dexamethasone for 4 more days to finish a week of ster oids. add cough medicine. # Acute metabolic encephalopathy in the setting of infection, improved to baseline as infection was treated. # PHysical deconditioning, PT rec SNF placement but patient prefers going home with PT. # Paroxysmal atrial fibrillation, Rate controlled. Not on anticoagulation # COPD, No exacerbation during admission. Continue home inhalers # Mood disorder, Continue home mood stabilizers # CAD/peripheral vascular disease, On Plavix and high-intensity statin Discharge plan Continue Azithromycin and Ceftin for 1 more week Dexamethasone for 4 more days Mucinex for cough Use Incentive spirometry Increase physical activity as tolerated Time Attestation Discharge Coordination Time (in mins): 41 Quality: Safe Use of Opioids Does Pt have an Active Cancer Diagnosis on the Problem List?: No Quality: Stroke Does the patient have a stroke diagnosis?: No Physical Exam Vital Signs: Vital Signs: Last Vital Signs Temp 97.6 F 04/23/24 07:59 Pulse 64 04/23/24 07:59 Resp 18 04/23/24 07:59 BP 167/74 H 04/23/24 07:59 Pulse Ox 96 04/23/24 07:59 O2 Del Method Room Air 04/23/24 07:59 O2 Flow Rate 2 04/20/24 04:00 Oxygen Flow Rate 2 04/19/24 22:21 BMI result Body Mass Index 22.6 Const: Other: Constitutional : Awake, interactive, not in distress Neck : Normal inspection, Supple Cardiovascular : RRR, no JVP, no lower extremity edema Respiratory : good bilateral air entry, basal fine crackles, no wheezes Gastrointestinal: soft, lax, Normal bowel sounds, Non tender Skin : Warm, Dry Neurological : Alert & oriented x3, No focal deficit DS: Data Data Completed and Pending Labs on day of discharge: Preliminary micro results at discharge 04/19/24 22:48 Blood Culture - Preliminary Blood - Venous No growth after 48 hours. 04/19/24 22:48 Blood Culture - Preliminary Blood - Venous No growth after 48 hours. Imaging Chest x-ray: Radiologist's impression: ITS Impressions Chest X-Ray 04/19/24 22:52 IMPRESSION: 1. Suggestion of mild retrocardiac infiltrates, recommend evaluation with lateral radiographic view of the chest. 2. Nonspecific biapical nodular opacities. Recommend follow-up with CT chest 3 months. 3. Background of chronic diffuse interstitial thickening. Electronically signed by: Mojgan Gutiérrez MD 04/20/2024 12:21 AM EDT RP Discharge Plan Discharge Anticipated Discharge Date/Time: 04/23/24 10:56 Patient Disposition: Home Health Service Discharge Diagnosis: Covid Pneumonia Referrals: [facility] [Outside] - 1 Day (HOME PHYSICAL THERAPY) Ijeoma Whaley MD [Primary Care Provider] - 1 Week Discharge Medications: New dexamethasone 4 mg Tablet 4 mg PO DAILY Qty: 4 0RF Mucus DM 30-600 mg Tablet Extended Release 12 Hr 1 tab PO BID Qty: 10 0RF cefuroxime axetil 500 mg tablet 500 mg PO BID Qty: 14 0RF azithromycin 500 mg tablet 500 mg PO DAILY 7 Days Qty: 7 0RF Continued enalapril maleate 5 mg tablet 5 mg PO BID albuterol sulfate [Ventolin HFA] 90 mcg/actuation HFA aerosol inhaler 2 puff inhalation Q4H PRN (Reason: Shortness Of Breath Or Wheezing) fluticasone furoate-vilanterol [Breo Ellipta] 200-25 mcg/dose blister with device 1 ea inhalation DAILY cyanocobalamin (vitamin B-12) 1,000 mcg Tablet 1,000 mcg PO DAILY sertraline 50 mg Tablet 50 mg PO DAILY Rx Instructions: take with 100 mg tablet for total dose of 150 mg clopidogrel [Plavix] 75 mg tablet 75 mg PO DAILY atorvastatin [Lipitor] 80 mg tablet 80 mg PO BEDTIME sertraline 100 mg tablet 100 mg PO DAILY famotidine 20 mg tablet 20 mg PO DAILY melatonin 3 mg capsule 3 mg PO BEDTIME PRN (Reason: Insomnia) acetaminophen [Tylenol Arthritis Pain] 650 mg tablet extended release 650 mg PO Q8H PRN (Reason: Moderate Pain (Scale Score 5-6)) Discharge Orders: Discharge Order (Routine); Ordered 04/23/24 Ordered By: Sharmaine Reyes Diet: Advance to usual diet Activity on Discharge: As tolerated Stand Alone Forms: Patient Portal Discharge page Print Language: Moroccan Care Plan Goals: You were treated for Pneumonia with IV antibiotics and Covid infection with steroids with good response. To finish 1 more week of treatment. Continue Azithromycin and Ceftin for 1 more week Dexamethasone for 4 more days Mucinex for cough Use Incentive spirometry Increase physical activity as tolerated Health Concerns: Read below Plan of Treatment: Read below Assessment: Read below
--- NOTE | 2024-04-23 11:01 | P.F2F_ITS ---
Service Date Service Date: 04/23/24 Encounter Date of encounter: 04/23/24 Reasons for Services Signs and symptoms assessed: physical deconditioning Reason for physical therapy: home safety and mobility and therapeutic exercises Homebound: Leaving the home is medically contraindicated at this time without the asist of a device and/or another person due th the listed conditions above and below. Reason homebound: unsteady gait / fall risk Certification: Based on the above findings, I certify that this patient is confined to the home and needs intermittent residential care, physical therapy and/or speech therapy, or continues to need occupational therapy. The patient is under my care, and I have initiated the establishment of the plan of care. The patient will be followed by a physician who will periodically review the plan of care. Time Spent With Patient Time: Total time managing care of this patient today ____ minutes.
[2024-04-23 11:56] VITALS: BP 162/67; PULSE 62; RESP 18; TEMP 36.3; O2SAT 96
== END 2024-04-23 14:56 | disposition home health service (06) | DRG 871 ==
LOC: HO.ED 23:48 → HO.EDOVER 04-20 01:01 → HO.IMC 04-20 12:52
PROVIDERS: Admitting Provider Student in an Organized Health Care Education/Training Program; Emergency Provider Emergency Medicine; PCP Internal Medicine; Visit Provider Student in an Organized Health Care Education/Training Program
DX: A41.89 Other specified sepsis (principal); G92.8 Other toxic encephalopathy; J18.9 Pneumonia, unspecified organism; U07.1 COVID-19; J96.01 Acute respiratory failure with hypoxia; J44.0 Chronic obstructive pulmonary disease with (acute) lower respiratory infection; A49.9 Bacterial infection, unspecified; I48.0 Paroxysmal atrial fibrillation; Z66 Do not resuscitate; I25.10 Atherosclerotic heart disease of native coronary artery without angina pectoris; Z85.46 Personal history of malignant neoplasm of prostate; Z92.3 Personal history of irradiation; Z95.1 Presence of aortocoronary bypass graft; Z79.02 Long term (current) use of antithrombotics/antiplatelets; Z79.899 Other long term (current) drug therapy
CPT/HCPCS: 0241U; 36415; 71045; 80048; 80053; 81003; 83605; 83735; 83880; 84484; 85025; 85027; 85610; 87040; 93005; 97116; 97162; 99285; J0456; J0696; J1100; J1650; J8540

== ENCOUNTER → 2024-04-20 00:56 | Outpatient (BNV) | payer MEDICARE, OTHER, SELFPAY | PROVIDERS: Admitting Provider Student in an Organized Health Care Education/Training Program; Emergency Provider Emergency Medicine; Visit Provider Student in an Organized Health Care Education/Training Program | DX: U07.1 COVID-19 (principal); J18.9 Pneumonia, unspecified organism; R91.8 Other nonspecific abnormal finding of lung field; J96.01 Acute respiratory failure with hypoxia; G92.8 Other toxic encephalopathy | CPT/HCPCS: 99223; 99232; 99239; 99499; G0180 ==